=== PATIENT | female | born 1980 | race Caucasian/White ===

== ENCOUNTER 2019-08-10 18:47 | Emergency (ER) | payer OTHER, MEDICAID, SELFPAY ==
[2019-08-10 18:51] VITALS: BP 145/68; PULSE 85; RESP 20; TEMP 36.7; O2SAT 100
[2019-08-10 19:37] LABS: Add Manual Diff / Slide Review NO; Basophils Absolute Auto 100 /uL (0-100); Basophils Percent Auto 1.2 % (0-2); Eosinophils Absolute Auto 200 /uL (0-450); Hematocrit 42.5 % (36-46); Hemoglobin 14.3 g/dL (12.0-16.0); Lymphocytes Absolute Auto 2400 /uL (1100-4500); Lymphocytes Percent Auto 52.5 % (25-40); Mean Corpuscular HGB Conc 33.7 % (30-36); Mean Corpuscular Hemoglobin 32.1 PG (26-34); Mean Corpuscular Volume 95.5 fL (80-100); Monocytes Absolute Auto 400 /uL (0-900); Monocytes Percent Auto 8.2 % (3-14); Neutrophils Absolute Auto 1500 /uL (1500-7000); Neutrophils Percent Auto 34.1 % (50-75); Platelet Count 214 X10^3/uL (150-400); Red Blood Cell Count 4.45 X10^6/uL (4.0-5.2); Red Cell Distribution Width 12.4 % (11.6-14.8); White Blood Cell Count 4.5 X10^3/uL (4.5-11.0)
[2019-08-10 19:41] LABS: Prothrombin Time 11.8 SECONDS (10.1-12.7)
[2019-08-10 19:44] LABS: PTT Partial Thromboplastin Tim 38 SECONDS (26.4-36.2)
[2019-08-10 19:45] LABS: Alanine Aminotransferase 18 IU/L (<35); Albumin 4.3 g/dL (3.5-5.0); Albumin Globulin Ratio 1.4 (1.0-2.8); Alkaline Phosphatase 71 U/L (38-126); Aspartate Aminotransferase 24 IU/L (14-36); BUN Creatinine Ratio 12.5 (6-22); Bilirubin Total 0.3 mg/dL (0.2-1.3); Blood Urea Nitrogen 10 mg/dL (7-17); Calcium 9.2 mg/dL (8.4-10.2); Carbon Dioxide 28 mmol/L (22-32); Chloride 107 mmol/L (98-107); Estimated Glomerular Filt Rate > 60.0 mL/min (>60); Globulin 3.1 g/dL (1.7-4.1); Glucose 122 mg/dL (70-100); HEMOLYSIS < 15 (0-50); Lipase 111 U/L (23-300); Potassium 3.9 mmol/L (3.4-5.1); Sodium 140 mmol/L (137-145); Total Protein 7.4 g/dL (6.3-8.2)
--- NOTE | 2019-08-10 20:42 | ED.GENADULT ---
HPI - General Adult General Chief complaint: Abdominal Pain Stated complaint: hard time breathing, upper abdominal pain Time Seen by Provider: 08/10/19 20:41 Source: patient Mode of arrival: Ambulatory Limitations: no limitations History of Present Illness HPI narrative: 38-year-old female here for evaluation of an episode that she had earlier today. States she had a fairly sudden onset of epigastric abdominal pain. Unsure exactly how long it lasted but it was less than 2 hours. It did cause her to have enough discomfort that she was short of breath. She came in the emergency department for evaluation. The time of my evaluation she was asymptomatic. States she has had symptoms like this in the past. She stated that she was eating some soup at the time of the onset. No bowel changes. No urinary symptoms. Related Data Home Medications Medication Instructions Recorded Confirmed acetaminophen [Tylenol Extra #0 03/11/16 Strength] gabapentin 100 mg PO TID #0 10/13/16 meclizine Unknown #0 10/13/16 tamsulosin [Flomax] Unknown #0 10/13/16 Previous Rx's Medication Instructions Recorded lorazepam [Ativan] 0 PO BIDP PRN #15 tab 01/30/16 oxycodone-acetaminophen [Percocet] 1 tab PO Q6HP PRN #28 tab 04/24/16 fluconazole [Diflucan] 150 mg PO QDAY #1 tab 08/21/16 cyclobenzaprine 10 mg PO TIDP PRN #20 tab 10/06/16 ibuprofen 800 mg PO TIDP PRN #20 tab 10/06/16 oxycodone-acetaminophen [Endocet] 1 tab PO Q6HP PRN #5 tab 10/06/16 ondansetron [Zofran ODT] 4 mg SUBLINGUAL Q6HP PRN #10 odt 10/13/16 sulfamethoxazole-trimethoprim 1 tab PO BID #14 tab 03/11/17 fluconazole 150 mg tablet 150 mg PO ONCE #1 tab 06/28/19 Allergies Allergy/AdvReac Type Severity Reaction Status Date / Time amoxicillin Allergy Intermediate ITCHY RASH Verified 06/28/19 17:09 kiwi [KIWI] Allergy Intermediate mouth Verified 06/28/19 17:09 hurt/swelling citalopram AdvReac Severe PSYCHOSIS Verified 06/28/19 17:09 fluoxetine AdvReac Severe PSYCHOSIS Verified 06/28/19 17:09 Pain contract Allergy Unknown Uncoded 09/30/17 12:19 Review of Systems Constitutional Constitutional: Denies fever(s) Cardiovascular Cardiovascular: Denies chest pain and Reports dyspnea Respiratory Respiratory: Reports dyspnea Gastrointestinal Gastrointestinal: Reports abdominal pain, Denies change in stool character, Denies nausea and Denies vomiting Genitourinary Genitourinary: Denies dysuria and Denies vaginal discharge Musculoskeletal Musculoskeletal: Denies myalgias and Denies arthralgias Integumentary/Breasts Skin/Breast: Denies lesions and Denies rash Neurologic Neurologic: Denies behavioral changes Psychiatric Psychiatric: Denies behavioral changes Hematologic/Lymphatic Hematologic/Lymphatic: Denies easy bleeding and Denies easy bruising Patient History Medical History Abdominal pain (Inactive) Acute exacerbation of chronic low back pain (Inactive) Affective disorder (Inactive) Annular tear of lumbar disc (09/12/15) Arthralgia (Inactive) Bilateral carpal tunnel syndrome (Inactive) Bipolar affective disorder, current episode depressed Chronic low back pain without sciatica (10/08/15) Chronic narcotic use (10/08/15) Diverticulitis (Inactive) Diverticulosis of intestine (09/05/13) Irritable bowel syndrome (09/05/13) Kidney stone (Inactive) Left conjunctivitis (Inactive) Marital conflict involving estrangement (Inactive) Parenting stress (Inactive) Peripheral neuropathy (Inactive) PTSD (post-traumatic stress disorder) (Inactive) Right wrist sprain (Inactive) Sciatica (Inactive) Sprain of right wrist, subsequent encounter (10/08/15) Tobacco use disorder Uncomplicated opioid dependence (01/23/16) Surgical History (Updated 10/20/17 @ 05:58 by Conversion Provider) Status post tubal ligation Family History (Updated 07/27/15 @ 00:00 by Mindy Gregory DO) Mother Osteoarthritis of cervical spine, unspecified spinal osteoarthritis complication status Social History Smoking Status: Current every day smoker Smoking Status: Current every day smoker alcohol intake frequency: 0-2 drinks per day Substance Use Type: marijuana Exam Initial Vital Signs Initial Vital Signs: Vital Signs Temperature 98.1 F 08/10/19 18:51 Pulse Rate 85 08/10/19 18:51 Respiratory Rate 20 08/10/19 18:51 Blood Pressure 145/68 H 08/10/19 18:51 Pulse Oximetry 100 08/10/19 18:51 Const General: cooperative and comfortable Limitations: mental status not altered [facility] Head: normal to inspection and normocephalic Resp Effort & Inspection: normal respiratory effort Auscultation: clear to auscultation bilaterally Cardio Rate: regular rate Rhythm: regular rhythm GI Inspection: non-distended Palpation: soft and No firm Skin Lesions: no lesions Rashes: no rashes Neuro General: alert, awake and oriented x3 Cognition: normal cognition Extrem General: normal to inspection and capillary refill normal Course Orders Ordered: ED Orders 08/10/19 19:16 EKG-12 Lead Stat 08/10/19 19:27 Complete Blood Count AUTO DIFF Stat Comprehensive Metabolic Panel Stat Lipase Stat Partial Thromboplastin Time Stat Prothrombin Time INR Stat Vital Signs Vital signs: Vital Signs - 8 hr 08/10/19 18:51 Temperature 98.1 F Pulse Rate [Left] 85 Respiratory Rate 20 Blood Pressure [Left Arm] 145/68 H Pulse Oximetry 100 Medical Decision Making Lab Data Lab results reviewed: Yes I reviewed the patient's lab results. Result diagrams: 08/10/19 19:27 08/10/19 19:27 Labs: Lab Results 08/10/19 08/10/19 08/10/19 Range/Units 19:27 19:27 19:27 WBC 4.5 (4.5-11.0) X10^3/uL RBC 4.45 (4.0-5.2) X10^6/uL Hgb 14.3 (12.0-16.0) g/dL Hct 42.5 (36-46) % MCV 95.5 (80-100) fL MCH 32.1 (26-34) PG MCHC 33.7 (30-36) % RDW 12.4 (11.6-14.8) % Plt Count 214 (150-400) X10^3/uL Neut % (Auto) 34.1 L (50-75) % Lymph % (Auto) 52.5 H (25-40) % [place]min[place] % (Auto) 8.2 (3-14) % Eos % (Auto) 4.0 (2-4) % Baso % (Auto) 1.2 (0-2) % Neut # (Auto) 1500 (6098-7555) /uL Lymph # (Auto) 2400 (4687-8407) /uL [place]minn # (Auto) 400 (0-900) /uL Eos # (Auto) 200 (0-450) /uL Baso # (Auto) 100 (0-100) /uL PT 11.8 (10.1-12.7) SECONDS INR 1.0 (0.9-1.3) APTT 38 H (26.4-36.2) SECONDS Sodium 140 (137-145) mmol/L Potassium 3.9 (3.4-5.1) mmol/L Chloride 107 (98-107) mmol/L Carbon Dioxide 28 (22-32) mmol/L BUN 10 (7-17) mg/dL Creatinine 0.80 (0.52-1.04) mg/dL Estimated GFR > 60.0 (>60) mL/min BUN/Creatinine Ratio 12.5 (6-22) Glucose 122 H (70-100) mg/dL Calcium 9.2 (8.4-10.2) mg/dL Total Bilirubin 0.3 (0.2-1.3) mg/dL AST 24 (14-36) IU/L ALT 18 (<35) IU/L Alkaline Phosphatase 71 (38-126) U/L Total Protein 7.4 (6.3-8.2) g/dL Albumin 4.3 (3.5-5.0) g/dL Globulin 3.1 (1.7-4.1) g/dL Albumin/Globulin Ratio 1.4 (1.0-2.8) Lipase 111 (23-300) U/L ECG Data Attestation: I personally reviewed and interpreted this ECG as follows: Prior ECG tracings: not available for review Interpretation: Sinus rhythm Ventricular rate is 71 Normal axis Normal QRS Normal QTC No ST T wave changes MDM Narrative Medical decision making narrative: Patient is asymptomatic time my evaluation. Her EKG is unremarkable. Labs are unremarkable. Unsure the exact etiology of her symptoms. Could potentially have been a gallbladder attack given the fact that she was eating at the time. Her LFTs are unremarkable. I do not feel we need any radiologic studies. No indication for antibiotics. No indication for surgical consultation. Patient agrees with all of this. She was given return precautions and follow-up instructions. She expressed understanding and agreement plan. Discharge Plan Departure Patient Disposition: Home Clinical Impression: Abdominal pain Qualifiers: Abdominal location: epigastric Qualified Code(s): R10.13 - Epigastric pain Discharge Date/Time: 08/10/19 21:00 Instructions: DI for Abdominal Pain-Adult Activity Restrictions/Additional Instructions: Continue all of your medications as directed. I do recommend that you contact your primary care provider for follow-up. Return to the emergency department for any new or worsening symptoms Prescriptions: No Action fluconazole 150 mg tablet 150 mg PO ONCE Qty: 1 RF: 0 lorazepam [Ativan] 1 MG tablet 0 PO BIDP PRNQty: 15 RF: 0 acetaminophen [Tylenol Extra Strength] 500 MG tablet Qty: 0 RF: 0 oxycodone-acetaminophen [Percocet] 5 MG/325 MG tablet 1 tab PO Q6HP PRNQty: 28 RF: 0 fluconazole [Diflucan] 150 MG tablet 150 mg PO QDAY Qty: 1 RF: 0 cyclobenzaprine 10 MG tablet 10 mg PO TIDP PRNQty: 20 RF: 0 ibuprofen 800 MG tablet 800 mg PO TIDP PRNQty: 20 RF: 0 oxycodone-acetaminophen [Endocet] 5 MG/325 MG tablet 1 tab PO Q6HP PRNQty: 5 RF: 0 meclizine 12.5 MG tablet Unknown Qty: 0 RF: 0 tamsulosin [Flomax] 0.4 MG capsule,extended release 24hr Unknown Qty: 0 RF: 0 gabapentin 100 MG capsule 100 mg PO TID Qty: 0 RF: 0 ondansetron [Zofran ODT] 4 MG tablet,disintegrating 4 mg Sublingual Q6HP PRNQty: 10 RF: 0 sulfamethoxazole-trimethoprim 800 MG/160 MG tablet 1 tab PO BID Qty: 14 RF: 0 Referrals: Ngozi Diane PA-C [Primary Care Provider] -
== END 2019-08-10 21:00 | disposition home or self-care (01) ==
PROVIDERS: Emergency Provider Emergency Medicine; Family Provider Physician Assistant; PCP Physician Assistant
DX: R10.13 Epigastric pain (principal)
CPT/HCPCS: 36415; 80053; 83690; 85025; 85610; 85730; 93005; 99283; 99284

== ENCOUNTER → 2019-08-16 18:56 | Outpatient (CLI) | payer OTHER, MEDICAID, SELFPAY | PROVIDERS: Family Provider Physician Assistant; PCP Physician Assistant; Visit Provider Nurse Practitioner | DX: J02.9 Acute pharyngitis, unspecified (principal) | CPT/HCPCS: 87070; 87077; 87147 ==

== ENCOUNTER 2019-11-14 14:45 | Emergency (ER) | payer OTHER, MEDICAID, SELFPAY ==
[2019-11-14 15:08] VITALS: BP 163/70; PULSE 96; RESP 17; TEMP 36.5; O2SAT 99
--- NOTE | 2019-11-14 15:12 | ED.MEDCLEAR ---
HPI - Medical Clearance <CHRISTIANO Huddleston - Last Filed: 11/14/19 21:45> General Chief complaint: Medical Clearance Stated complaint: MASS DEPRESSION ANXIETY DETOX Time Seen by Provider: 11/14/19 14:51 History of Present Illness HPI Narrative: 38yo female presents emergency department for medical clearance for detox at [facility], patient reports she called them and they have a bed available for her was told to come to the emergency department for medical clearance. She states she is seeking detox for alcohol use, narcotic, and smoking. She states she has a history of anxiety and has been taking Chantix which has increased her anxiety. Patient also reports the pandemic increased her anxiety lately as well. Patient states her last drink was last night at Midnight, at that time she also did 2gms of cocaine. She states today around 10:00 a.m. she took a half of a 5 mg Percocet. Patient reports some tremors and increased anxiety throughout the day. She denies hallucinations or headaches. Patient denies pain anywhere, she denies chest pain, shortness of breath, abdominal pain, nausea, vomiting, diarrhea, or any other concerns. Related Information Home Medications Medication Instructions Recorded Confirmed acetaminophen [Tylenol Extra #0 03/11/16 08/16/19 Strength] acyclovir PO 08/16/19 08/16/19 albuterol sulfate INHALATION PRN 08/16/19 08/16/19 Previous Rx's Medication Instructions Recorded ibuprofen 800 mg PO TIDP PRN #20 tab 10/06/16 lorazepam [Ativan] 2 mg PO BID PRN #9 tab 11/14/19 Allergies Allergy/AdvReac Type Severity Reaction Status Date / Time amoxicillin Allergy Intermediate ITCHY RASH Verified 11/14/19 15:20 kiwi [KIWI] Allergy Intermediate mouth Verified 11/14/19 15:20 hurt/swelling citalopram AdvReac Severe PSYCHOSIS Verified 11/14/19 15:20 fluoxetine AdvReac Severe PSYCHOSIS Verified 11/14/19 15:20 Pain contract Allergy Unknown Uncoded 11/14/19 15:20 Review of Systems <CHRISTIANO Huddleston - Last Filed: 11/14/19 21:45> Review of Systems Narrative: REVIEW OF SYSTEMS: GENERAL: Denies fever or chills. HENT: No head trauma, hearing loss or sore throat. EYES: No vision changes. CARDIOVASCULAR: No chest pain or syncope. RESPIRATORY: No shortness of breath or cough. GASTROINTESTINAL: No nausea, vomiting, diarrhea, or constipation. GENITOURINARY: No flank pain or dysuria. MUSCULOSKELETAL: No pain, weakness, or deformities. INTEGUMENTARY: No rash, lesions, or pruritus. NEURO: No no numbness, tingling, or hallucinations. PSYCH: Reports increased anxiety, see HPI. Patient History <CHRISTIANO Huddleston - Last Filed: 11/14/19 21:45> Medical History Abdominal pain (Inactive) Acute exacerbation of chronic low back pain (Inactive) Affective disorder (Inactive) Annular tear of lumbar disc (09/12/15) Arthralgia (Inactive) Bilateral carpal tunnel syndrome (Inactive) Bipolar affective disorder, current episode depressed Chronic low back pain without sciatica (10/08/15) Chronic narcotic use (10/08/15) Diverticulitis (Inactive) Diverticulosis of intestine (09/05/13) Irritable bowel syndrome (09/05/13) Kidney stone (Inactive) Left conjunctivitis (Inactive) Marital conflict involving estrangement (Inactive) Parenting stress (Inactive) Peripheral neuropathy (Inactive) PTSD (post-traumatic stress disorder) (Inactive) Right wrist sprain (Inactive) Sciatica (Inactive) Sprain of right wrist, subsequent encounter (10/08/15) Tobacco use disorder Uncomplicated opioid dependence (01/23/16) Surgical History Status post tubal ligation Family History Mother Osteoarthritis of cervical spine, unspecified spinal osteoarthritis complication status Social History Smoking Status: Current every day smoker Smoking Status: Current every day smoker alcohol intake frequency: 0-2 drinks per day Substance Use Type: marijuana Exam <CHRISTIANO Huddleston - Last Filed: 11/14/19 21:45> Initial Vital Signs Initial Vital Signs: Vital Signs Temperature 97.7 F 11/14/19 15:08 Pulse Rate 96 H 11/14/19 15:08 Respiratory Rate 17 11/14/19 15:08 Blood Pressure 163/70 H 11/14/19 15:08 Pulse Oximetry 99 11/14/19 15:08 PHYSICAL EXAMINATION: GENERAL: Alert and cooperative.. Answers questions promptly and appropriately. Vital signs noted. HENT: Normocephalic, atraumatic. Ear canals patent. Oral mucosa is pink and moist. EYES: Conjunctiva pink, sclera white, no periorbital swelling. CHEST: Normal to inspection and without deformities. CARDIOVASCULAR: S1 and S2 sounds normal. Regular rate and rhythm, no murmurs, clicks, or bruits. No pedal edema. RESPIRATORY: Normal respiratory rate, trachea midline, airway patent. No stridor, nasal flaring or accessory muscle use. Lungs are clear in all biggs without wheeze, rhonchi, or crackles. GASTROINTESTINAL: Bowel sounds normoactive. Abdomen is soft and non-tender. No organomegaly. MUSCULOSKELETAL: Normal gait and coordination. Equal tone and mass bilaterally. EXTREMITIES: CMS intact. Moves all extremities. SKIN: Warm, dry, soft, appropriate color for ethnicity. No lesions, rashes, or wounds. NEURO: Alert and Oriented X 3. Good coordination. No ataxia, or sensory deficits, or cognitive issues. Initial mild to moderate tremors, he has resolved after administration of Ativan. PSYCH: Appropriate affect and mood. <Zacarias Agosto DO - Last Filed: 11/15/19 18:29> Initial Vital Signs Initial Vital Signs: Vital Signs Temperature 97.7 F 11/14/19 15:08 Pulse Rate 96 H 11/14/19 15:08 Respiratory Rate 17 11/14/19 15:08 Blood Pressure 163/70 H 11/14/19 15:08 Pulse Oximetry 99 11/14/19 15:08 [facility] - Medical Clearance <CHRISTIANO Huddleston - Last Filed: 11/14/19 21:45> Medical Records Attestation: I reviewed the patient's medical records. Lab Data Attestation: I reviewed the patient's lab results. Result diagrams: 11/14/19 15:52 11/14/19 15:52 Labs: Lab Results 11/14/19 11/14/19 11/14/19 Range/Units 15:52 15:52 15:52 WBC (4.5-11.0) X10^3/uL RBC (4.0-5.2) X10^6/uL Hgb (12.0-16.0) g/dL Hct (36-46) % MCV (80-100) fL MCH (26-34) PG MCHC (30-36) % RDW (11.6-14.8) % Plt Count (150-400) X10^3/uL Neut % (Auto) (50-75) % Lymph % (Auto) (25-40) % Stanly % (Auto) (3-14) % Eos % (Auto) (2-4) % Baso % (Auto) (0-2) % Neut # (Auto) (2065-6297) /uL Lymph # (Auto) (4800-9099) /uL Stanly # (Auto) (0-900) /uL Eos # (Auto) (0-450) /uL Baso # (Auto) (0-100) /uL Sodium 141 (137-145) mmol/L Potassium 4.1 (3.4-5.1) mmol/L Chloride 106 (98-107) mmol/L Carbon Dioxide 24 (22-32) mmol/L BUN 12 (7-17) mg/dL Creatinine 1.01 (0.52-1.04) mg/dL Estimated GFR > 60.0 (>60) mL/min BUN/Creatinine Ratio 11.9 (6-22) Glucose 80 (70-100) mg/dL Calcium 9.8 (8.4-10.2) mg/dL Total Bilirubin 0.5 (0.2-1.3) mg/dL AST 25 (14-36) IU/L ALT 17 (<35) IU/L Alkaline Phosphatase 69 (38-126) U/L Total Protein 8.0 (6.3-8.2) g/dL Albumin 4.6 (3.5-5.0) g/dL Globulin 3.4 (1.7-4.1) g/dL Albumin/Globulin Ratio 1.4 (1.0-2.8) TSH 1.45 (0.47-4.68) uIU/mL U Opiates 300ng/mL cut (Negative) Ur Oxycodone Screen (Negative) Urine Methadone Screen (Negative) Ur Barbiturates Screen (Negative) U Tricyclic Antidepress (Negative) Ur Phencyclidine Scrn (Negative) Ur Amphetamines Screen (Negative) U Methamphetamines Scrn (Negative) Ur MDMA Scrn (Ecstasy) (Negative) U Benzodiazepines Scrn (Negative) Urine Cocaine Screen (Negative) U Marijuana (THC) Screen (Negative) Ethyl Alcohol < 10 ( - 10) mg/dL 11/14/19 11/14/19 Range/Units 15:52 16:16 WBC 8.2 (4.5-11.0) X10^3/uL RBC 4.78 (4.0-5.2) X10^6/uL Hgb 16.0 (12.0-16.0) g/dL Hct 45.8 (36-46) % MCV 95.8 (80-100) fL MCH 33.5 (26-34) PG MCHC 34.9 (30-36) % RDW 13.9 (11.6-14.8) % Plt Count 235 (150-400) X10^3/uL Neut % (Auto) 60.5 (50-75) % Lymph % (Auto) 28.3 (25-40) % Stanly % (Auto) 8.5 (3-14) % Eos % (Auto) 1.7 L (2-4) % Baso % (Auto) 1.0 (0-2) % Neut # (Auto) 5000 (9904-5288) /uL Lymph # (Auto) 2300 (3013-4326) /uL Stanly # (Auto) 700 (0-900) /uL Eos # (Auto) 100 (0-450) /uL Baso # (Auto) 100 (0-100) /uL Sodium (137-145) mmol/L Potassium (3.4-5.1) mmol/L Chloride (98-107) mmol/L Carbon Dioxide (22-32) mmol/L BUN (7-17) mg/dL Creatinine (0.52-1.04) mg/dL Estimated GFR (>60) mL/min BUN/Creatinine Ratio (6-22) Glucose (70-100) mg/dL Calcium (8.4-10.2) mg/dL Total Bilirubin (0.2-1.3) mg/dL AST (14-36) IU/L ALT (<35) IU/L Alkaline Phosphatase (38-126) U/L Total Protein (6.3-8.2) g/dL Albumin (3.5-5.0) g/dL Globulin (1.7-4.1) g/dL Albumin/Globulin Ratio (1.0-2.8) TSH (0.47-4.68) uIU/mL U Opiates 300ng/mL cut Negative (Negative) Ur Oxycodone Screen Positive H (Negative) Urine Methadone Screen Negative (Negative) Ur Barbiturates Screen Negative (Negative) U Tricyclic Antidepress Negative (Negative) Ur Phencyclidine Scrn Negative (Negative) Ur Amphetamines Screen Negative (Negative) U Methamphetamines Scrn Negative (Negative) Ur MDMA Scrn (Ecstasy) Negative (Negative) U Benzodiazepines Scrn Negative (Negative) Urine Cocaine Screen Positive H (Negative) U Marijuana (THC) Screen Negative (Negative) Ethyl Alcohol ( - 10) mg/dL Point of Care Testing Test Results Negative Urine Dip Bedside Urine Glucose Negative Bedside Urine Bilirubin - Negative Bedside Urine Ketone - Negative Urine Specific [place] 1.025 Bedside Urine Occult Blood - Negative Bedside Urine pH 6.0 Bedside Urine Protein - Negative Bedside Urine Urobilinogen - Negative Bedside Urine Nitrite - Negative Bedside Urine Leukocytes - Negative Esterase MDM Narrative Medical decision making narrative: 38-year-old female with a history of alcohol and drug abuse, presenting for medical clearance to [facility]. Course as follows: 1530: CIWA score of 9, patient given 2 mg of Ativan. 1548:Nursing talked with [facility] and requested patient be sent with an RX of 9-2mg ativan pills for treatment during the night and that lab and urine studies be completed prior to DC. 1638: Patient re-evaluated, states she is feeling less anxious. Requesting a nicotine patch and food. CIWA score of 3. 1750: Patient Cab arrived, [facility] reported pharmacy was closed, patient was given two 2mg PO ativan pills for withdrawals tonight. Patient without signs of infection, electrolyte abnormality, severe withdrawal, or severe intoxication. Patient was medically cleared for scheduled detox beds. Medication was given for request of [facility]. Return precautions given for new or worsening symptoms. <Zacarias Agosto, DO - Last Filed: 11/15/19 18:29> Lab Data Labs: Lab Results 11/14/19 11/14/19 11/14/19 Range/Units 15:52 15:52 15:52 WBC (4.5-11.0) X10^3/uL RBC (4.0-5.2) X10^6/uL Hgb (12.0-16.0) g/dL Hct (36-46) % MCV (80-100) fL MCH (26-34) PG MCHC (30-36) % RDW (11.6-14.8) % Plt Count (150-400) X10^3/uL Neut % (Auto) (50-75) % Lymph % (Auto) (25-40) % Stanly % (Auto) (3-14) % Eos % (Auto) (2-4) % Baso % (Auto) (0-2) % Neut # (Auto) (0140-3897) /uL Lymph # (Auto) (6540-6019) /uL Stanly # (Auto) (0-900) /uL Eos # (Auto) (0-450) /uL Baso # (Auto) (0-100) /uL Sodium 141 (137-145) mmol/L Potassium 4.1 (3.4-5.1) mmol/L Chloride 106 (98-107) mmol/L Carbon Dioxide 24 (22-32) mmol/L BUN 12 (7-17) mg/dL Creatinine 1.01 (0.52-1.04) mg/dL Estimated GFR > 60.0 (>60) mL/min BUN/Creatinine Ratio 11.9 (6-22) Glucose 80 (70-100) mg/dL Calcium 9.8 (8.4-10.2) mg/dL Total Bilirubin 0.5 (0.2-1.3) mg/dL AST 25 (14-36) IU/L ALT 17 (<35) IU/L Alkaline Phosphatase 69 (38-126) U/L Total Protein 8.0 (6.3-8.2) g/dL Albumin 4.6 (3.5-5.0) g/dL Globulin 3.4 (1.7-4.1) g/dL Albumin/Globulin Ratio 1.4 (1.0-2.8) TSH 1.45 (0.47-4.68) uIU/mL U Opiates 300ng/mL cut (Negative) Ur Oxycodone Screen (Negative) Urine Methadone Screen (Negative) Ur Barbiturates Screen (Negative) U Tricyclic Antidepress (Negative) Ur Phencyclidine Scrn (Negative) Ur Amphetamines Screen (Negative) U Methamphetamines Scrn (Negative) Ur MDMA Scrn (Ecstasy) (Negative) U Benzodiazepines Scrn (Negative) Urine Cocaine Screen (Negative) U Marijuana (THC) Screen (Negative) Ethyl Alcohol < 10 ( - 10) mg/dL 11/14/19 11/14/19 Range/Units 15:52 16:16 WBC 8.2 (4.5-11.0) X10^3/uL RBC 4.78 (4.0-5.2) X10^6/uL Hgb 16.0 (12.0-16.0) g/dL Hct 45.8 (36-46) % MCV 95.8 (80-100) fL MCH 33.5 (26-34) PG MCHC 34.9 (30-36) % RDW 13.9 (11.6-14.8) % Plt Count 235 (150-400) X10^3/uL Neut % (Auto) 60.5 (50-75) % Lymph % (Auto) 28.3 (25-40) % Stanly % (Auto) 8.5 (3-14) % Eos % (Auto) 1.7 L (2-4) % Baso % (Auto) 1.0 (0-2) % Neut # (Auto) 5000 (5365-9978) /uL Lymph # (Auto) 2300 (2321-3170) /uL Stanly # (Auto) 700 (0-900) /uL Eos # (Auto) 100 (0-450) /uL Baso # (Auto) 100 (0-100) /uL Sodium (137-145) mmol/L Potassium (3.4-5.1) mmol/L Chloride (98-107) mmol/L Carbon Dioxide (22-32) mmol/L BUN (7-17) mg/dL Creatinine (0.52-1.04) mg/dL Estimated GFR (>60) mL/min BUN/Creatinine Ratio (6-22) Glucose (70-100) mg/dL Calcium (8.4-10.2) mg/dL Total Bilirubin (0.2-1.3) mg/dL AST (14-36) IU/L ALT (<35) IU/L Alkaline Phosphatase (38-126) U/L Total Protein (6.3-8.2) g/dL Albumin (3.5-5.0) g/dL Globulin (1.7-4.1) g/dL Albumin/Globulin Ratio (1.0-2.8) TSH (0.47-4.68) uIU/mL U Opiates 300ng/mL cut Negative (Negative) Ur Oxycodone Screen Positive H (Negative) Urine Methadone Screen Negative (Negative) Ur Barbiturates Screen Negative (Negative) U Tricyclic Antidepress Negative (Negative) Ur Phencyclidine Scrn Negative (Negative) Ur Amphetamines Screen Negative (Negative) U Methamphetamines Scrn Negative (Negative) Ur MDMA Scrn (Ecstasy) Negative (Negative) U Benzodiazepines Scrn Negative (Negative) Urine Cocaine Screen Positive H (Negative) U Marijuana (THC) Screen Negative (Negative) Ethyl Alcohol ( - 10) mg/dL Point of Care Testing Test Results Negative Urine Dip Bedside Urine Glucose Negative Bedside Urine Bilirubin - Negative Bedside Urine Ketone - Negative Urine Specific [place] 1.025 Bedside Urine Occult Blood - Negative Bedside Urine pH 6.0 Bedside Urine Protein - Negative Bedside Urine Urobilinogen - Negative Bedside Urine Nitrite - Negative Bedside Urine Leukocytes - Negative Esterase Discharge Plan Departure Patient Disposition: Home Clinical Impression: Alcohol use disorder, Cocaine use Discharge Date/Time: 11/14/19 17:36 Activity Restrictions/Additional Instructions: Thank you for entrusting me with your care today. I commend you for taking the steps towards detox. As discussed, you are medically clear. We have spoken to [facility] and they are expecting you, please go directly there. Return to the emergency department for any new or worsening symptoms such as chest pain, uncontrollable vomiting, syncope, or any other concerns. Prescriptions: New lorazepam [Ativan] 2 mg tablet 2 mg PO BID PRN (Reason: The alcohol withdrawal) Qty: 9 RF: 0 No Action acyclovir PO RF: 0 albuterol sulfate inhalation PRNRF: 0 acetaminophen [Tylenol Extra Strength] 500 MG tablet Qty: 0 RF: 0 ibuprofen 800 MG tablet 800 mg PO TIDP PRNQty: 20 RF: 0 Referrals: Ngozi Diane PA-C [Primary Care Provider] - <Zacarias Agosto DO - Last Filed: 11/15/19 18:29> Cosign ED Attending Cosrudyature Attestation: I was immediately available in the department for consultation. This documentation has been reviewed and I agree with assessment and plan. Supervised by Zacairas Agosto DO
--- NOTE | 2019-11-14 15:29 | PC.NURSE ---
At this time I spoke with Vonnie at [facility] regarding patient being admitted for detox there. They report they did speak with her this morning and they do have a bed for her after medical clearance including blood alcohol level, urine drug screen, and urine test. They also request ativan for the patient to detox from alcohol.
[2019-11-14] MEDS: LORazepam 0.5 MG TABLET 2 MG PO (15:35)
--- NOTE | 2019-11-14 15:48 | PC.NURSE ---
I spoke with Sandra white and they requested a prescription for 2mg Ativan x9 be sent to [facility] in [place]. I informed Travis ALVARADO.
[2019-11-14 16:08] LABS: Add Manual Diff / Slide Review NO; Basophils Absolute Auto 100 /uL (0-100); Eosinophils Absolute Auto 100 /uL (0-450); Eosinophils Percent Auto 1.7 % (2-4); Hematocrit 45.8 % (36-46); Lymphocytes Absolute Auto 2300 /uL (1100-4500); Lymphocytes Percent Auto 28.3 % (25-40); Mean Corpuscular HGB Conc 34.9 % (30-36); Mean Corpuscular Hemoglobin 33.5 PG (26-34); Mean Corpuscular Volume 95.8 fL (80-100); Monocytes Absolute Auto 700 /uL (0-900); Monocytes Percent Auto 8.5 % (3-14); Neutrophils Absolute Auto 5000 /uL (1500-7000); Neutrophils Percent Auto 60.5 % (50-75); Platelet Count 235 X10^3/uL (150-400); Red Blood Cell Count 4.78 X10^6/uL (4.0-5.2); Red Cell Distribution Width 13.9 % (11.6-14.8); White Blood Cell Count 8.2 X10^3/uL (4.5-11.0)
[2019-11-14 16:18] LABS: Alanine Aminotransferase 17 IU/L (<35); Albumin 4.6 g/dL (3.5-5.0); Albumin Globulin Ratio 1.4 (1.0-2.8); Alkaline Phosphatase 69 U/L (38-126); Aspartate Aminotransferase 25 IU/L (14-36); BUN Creatinine Ratio 11.9 (6-22); Bilirubin Total 0.5 mg/dL (0.2-1.3); Blood Urea Nitrogen 12 mg/dL (7-17); Calcium 9.8 mg/dL (8.4-10.2); Carbon Dioxide 24 mmol/L (22-32); Chloride 106 mmol/L (98-107); Estimated Glomerular Filt Rate > 60.0 mL/min (>60); Ethanol (ETOH) < 10 mg/dL; Globulin 3.4 g/dL (1.7-4.1); Glucose 80 mg/dL (70-100); HEMOLYSIS < 15 (0-50); Potassium 4.1 mmol/L (3.4-5.1); Sodium 141 mmol/L (137-145)
[2019-11-14 16:33] LABS: UR Morphine/Opiate cutoff 300 Negative (Negative); Ur Creatinine Normal (Normal); Ur Specific Gravity Normal (Normal); Urine Amphetamines Negative (Negative); Urine Barbiturates Negative (Negative); Urine Benzodiazepines Negative (Negative); Urine Cocaine Positive (Negative); Urine MDMA Negative (Negative); Urine Methadone Negative (Negative); Urine Methamphetamines Negative (Negative); Urine Oxycodone Positive (Negative); Urine Phencyclidine Negative (Negative); Urine Tetrahydrocannabinol Negative (Negative); Urine Tricyclic Antidepressant Negative (Negative); Urine pH Normal (Normal)
[2019-11-14] MEDS: NICOTINE 21 MG PATCH TOP (16:42)
[2019-11-14 16:53] LABS: Thyroid Stimulating Hormone 1.45 uIU/mL (0.47-4.68)
[2019-11-14 17:01] VITALS: BP 142/90; PULSE 78; RESP 17; O2SAT 98
--- NOTE | 2019-11-14 17:02 | PC.NURSE ---
I faxed paper work to [facility] and called them to inform them that the patient is medically clear and will be headed their way. They verbalized understanding. Nicole sharpe was called by Samantha CUTLER and eta is 20 minutes.
[2019-11-14] MEDS: LORazepam 0.5 MG TABLET 4 MG PO (17:24)
--- NOTE | 2019-11-14 17:34 | PC.NURSE ---
[facility] reports they are unable to obtain ativan prescription tonight because pharmacy is closed. They request we send prepak of ativan with patient. 4mg Ativan sent with patient in sealed envelope care of Merts p d driver. Ok per Edna Howard RN and Travis ALVARADO. I spoke with [facility] about this and they report they will get the envelope from the p d driver when they arrive.
== END 2019-11-14 17:36 | disposition home or self-care (01) ==
PROVIDERS: Emergency Provider Nurse Practitioner; Family Provider Physician Assistant; PCP Physician Assistant
DX: Z00.8 Encounter for other general examination (principal); F10.20 Alcohol dependence, uncomplicated; F14.10 Cocaine abuse, uncomplicated; F41.9 Anxiety disorder, unspecified
CPT/HCPCS: 36415; 80053; 80305; 80320; 81003; 81025; 84443; 85025; 99283

== ENCOUNTER 2020-04-26 01:00 | Emergency (ER) | payer OTHER, MEDICAID, SELFPAY ==
[2020-04-26 01:03] VITALS: BP 125/71; PULSE 90; RESP 18; TEMP 36.8; O2SAT 99; BMI 25.0
[2020-04-26 01:35] VITALS: PULSE 81; O2SAT 100
[2020-04-26 02:00] VITALS: BP 105/58; PULSE 71; O2SAT 99
[2020-04-26 02:30] VITALS: BP 103/65; PULSE 68; O2SAT 98
[2020-04-26 03:00] VITALS: BP 105/60; PULSE 65; O2SAT 99
--- NOTE | 2020-04-26 03:16 | ED_ITS ---
HPI - Abdominal Pain General Chief Complaint: Abdominal Pain Stated Complaint: pain in abd had procedure today Time Seen by Provider: 04/26/20 02:56 Source: patient Mode of arrival: Ambulatory Limitations: no limitations History of Present Illness HPI narrative: The patient has an ongoing evaluation for abdominal pain. She has been evaluated for gallbladder disease, including HIDA scan in recent weeks. She also underwent a recent abdominal CT. Yesterday she had endoscopy and colonoscopy. She came in complaining of upper abdominal pain, the pain has resolved prior to me seeing her. She has no associated nausea vomiting. She is concerned about no BMs, very little output. She has passed a little gas. She has no distension or fever. She has no chest pain or dyspnea. Related Data Home Medications Medication Instructions Recorded Confirmed acetaminophen [Tylenol Extra #0 03/11/16 08/16/19 Strength] acyclovir PO 08/16/19 08/16/19 albuterol sulfate INHALATION PRN 08/16/19 08/16/19 Previous Rx's Medication Instructions Recorded ibuprofen 800 mg PO TIDP PRN #20 tab 10/06/16 lorazepam [Ativan] 2 mg PO BID PRN #9 tab 11/14/19 metoclopramide HCl [Reglan] 10 mg PO Q8HR 10 Days #30 tab 04/26/20 Allergies Allergy/AdvReac Type Severity Reaction Status Date / Time amoxicillin Allergy Intermediate ITCHY RASH Verified 11/14/19 15:20 kiwi [KIWI] Allergy Intermediate mouth Verified 11/14/19 15:20 hurt/swelling citalopram AdvReac Severe PSYCHOSIS Verified 11/14/19 15:20 fluoxetine AdvReac Severe PSYCHOSIS Verified 11/14/19 15:20 Pain contract Allergy Unknown Uncoded 11/14/19 15:20 Review of Systems Constitutional Constitutional: Denies chills, Denies fever(s), Denies headache(s) and Denies lethargy Eyes Eyes: Denies change in vision ENT Ears, Nose, Mouth, and Throat: Denies vertigo, Denies dizziness, Denies otalgia, Denies facial pain, Denies headache(s) and Denies mouth pain Cardiovascular Cardiovascular: Denies chest pain, Denies irregular heart rhythm, Denies lightheadedness, Denies palpitations and Denies dyspnea Respiratory Respiratory: Denies cough, Denies dyspnea and Denies wheezing Gastrointestinal Gastrointestinal: Reports as per HPI Genitourinary Genitourinary: Denies dysuria Genitourinary: Denies dysuria Musculoskeletal Musculoskeletal: Denies back pain Neurologic Neurologic: Denies vertigo, Denies dizziness and Denies headache(s) Endocrine Endocrine: Denies palpitations Allergic/Immunologic Allergic/Immunologic: Denies wheezing Patient History Medical History Abdominal pain (Inactive) Acute exacerbation of chronic low back pain (Inactive) Affective disorder (Inactive) Annular tear of lumbar disc (09/12/15) Arthralgia (Inactive) Bilateral carpal tunnel syndrome (Inactive) Bipolar affective disorder, current episode depressed Chronic low back pain without sciatica (10/08/15) Chronic narcotic use (10/08/15) Diverticulitis (Inactive) Diverticulosis of intestine (09/05/13) Irritable bowel syndrome (09/05/13) Kidney stone (Inactive) Left conjunctivitis (Inactive) Marital conflict involving estrangement (Inactive) Parenting stress (Inactive) Peripheral neuropathy (Inactive) PTSD (post-traumatic stress disorder) (Inactive) Right wrist sprain (Inactive) Sciatica (Inactive) Sprain of right wrist, subsequent encounter (10/08/15) Tobacco use disorder Uncomplicated opioid dependence (01/23/16) Surgical History Status post tubal ligation Family History Mother Osteoarthritis of cervical spine, unspecified spinal osteoarthritis complication status Social History Smoking Status: Current every day smoker Smoking Status: Current every day smoker tobacco type: cigarettes alcohol intake frequency: 0-2 drinks per day Substance Use Type: marijuana Exam Initial Vital Signs Initial Vital Signs: Vital Signs Temperature 98.3 F 04/26/20 01:03 Pulse Rate 90 04/26/20 01:03 Respiratory Rate 18 04/26/20 01:03 Blood Pressure 125/71 04/26/20 01:03 Pulse Oximetry 99 04/26/20 01:03 Const General: cooperative and well developed Nutritional Appearance: well nourished HENMI Head: normocephalic and atraumatic Resp Effort & Inspection: normal respiratory effort, able to speak in complete s entences, no respiratory distress and no use of accessory muscles Auscultation: not clear to auscultation bilaterally and lung sounds not diminished Cardio Rate: regular rate Rhythm: regular rhythm Heart Sounds: S1 normal, S2 normal, no click, no gallops, no murmurs and no rubs Pulses: normal peripheral pulses GI Inspection: non-distended Palpation: soft, no hepatosplenomegaly, No guarding, No pulsatile mass and No tender Auscultation: normal bowel sounds Back/Spine/Pelvis Back: No CVA tenderness Course Course Course Narrative: The patient has no ongoing dyspepsia, she is eating and drinking well. She does not want workup, or x-rays. I will give her Reglan. She can resume regular diet, recheck with her doctor in the next 2-3 days. Orders Ordered: Metoclopramide HCl (Reglan) 10 mg PO Q6HR PRN PRN Reason: Nausea And Vomiting Vital Signs Vital signs: Vital Signs - 8 hr 04/26/20 01:03 04/26/20 01:35 04/26/20 02:00 Temperature 98.3 F Pulse Rate 90 81 71 Respiratory Rate 18 Blood Pressure 125/71 105/58 L Pulse Oximetry 99 100 99 04/26/20 02:30 Temperature Pulse Rate 68 Respiratory Rate Blood Pressure 103/65 Pulse Oximetry 98 Discharge Plan Departure Patient Disposition: Home Clinical Impression: Dyspepsia Instructions: DI for Abdominal Pain-Adult Activity Restrictions/Additional Instructions: Reglan 3 times daily as needed for abdominal upset. Be sure you are drinking plenty of fluids. Follow-up with your doctor, return here if necessary. Prescriptions: New metoclopramide HCl [Reglan] 10 mg tablet 10 mg PO Q8HR 10 Days Qty: 30 RF: 0 No Action acyclovir PO RF: 0 albuterol sulfate inhalation PRNRF: 0 acetaminophen [Tylenol Extra Strength] 500 MG tablet Qty: 0 RF: 0 ibuprofen 800 MG tablet 800 mg PO TIDP PRNQty: 20 RF: 0 lorazepam [Ativan] 2 mg tablet 2 mg PO BID PRN (Reason: The alcohol withdrawal) Qty: 9 RF: 0 Referrals: Ngozi Diane PA-C [Primary Care Provider] -
[2020-04-26] MEDS: METOCLOPRAMIDE HCL 10 MG TABLET PO (03:23)
== END 2020-04-26 03:36 | disposition home or self-care (01) ==
PROVIDERS: Emergency Provider Emergency Medicine; Family Provider Physician Assistant; PCP Physician Assistant
DX: R10.13 Epigastric pain (principal)
CPT/HCPCS: 99283

== ENCOUNTER 2020-09-14 19:19 | Emergency (ER) | payer OTHER, MEDICAID, SELFPAY ==
[2020-09-14 19:20] VITALS: BP 123/78; PULSE 104; RESP 18; TEMP 36.8; O2SAT 100; BMI 24.7
[2020-09-14] MEDS: diphenhydrAMINE 25 MG TABLET 50 MG PO (21:41)
[2020-09-14 22:00] LABS: Bacteria Urine None Seen; WBC Urine None Seen (0-5/HPF)
[2020-09-14 22:03] LABS: Appearance Urine UA CLEAR; Bilirubin Urine UA NEGATIVE (NEGATIVE); Color Urine UA YELLOW; Glucose Urine UA NEGATIVE (Negative); Ketones Urine UA NEGATIVE (NEGATIVE); Leukocyte Esterase Urine UA NEGATIVE (NEGATIVE); Nitrite Urine UA NEGATIVE (Negative); Occult Blood Urine UA TRACE-INTACT (Negative); Protein Urine UA NEGATIVE (Negative); Urobilinogen Urine UA 0.2 E.U./dL (0.2)
[2020-09-14 22:06] LABS: Pregnancy Test Urine Negative (Negative)
[2020-09-14 22:09] LABS: RBC Urine 1-5/HPF (0-5/HPF); Squamous Epithelial Cell Urine 5-10 /HPF (0-5/HPF)
[2020-09-14 22:10] LABS: Culture Indicated Urine Cult Not Indicated
[2020-09-14 22:13] LABS: UR Morphine/Opiate cutoff 300 Negative (Negative); Ur Creatinine Normal (Normal); Ur Specific Gravity Normal (Normal); Urine Amphetamines Negative (Negative); Urine Barbiturates Negative (Negative); Urine Benzodiazepines Negative (Negative); Urine Cocaine Negative (Negative); Urine MDMA Negative (Negative); Urine Methadone Negative (Negative); Urine Methamphetamines Negative (Negative); Urine Oxycodone Negative (Negative); Urine Phencyclidine Negative (Negative); Urine Tetrahydrocannabinol Positive (Negative); Urine Tricyclic Antidepressant Negative (Negative); Urine pH Normal (Normal)
[2020-09-14 22:15] LABS: Add Manual Diff / Slide Review NO; Basophils Absolute Auto 100 /uL (0-100); Basophils Percent Auto 1.5 % (0-2); Eosinophils Absolute Auto 100 /uL (0-450); Eosinophils Percent Auto 1.2 % (2-4); Hematocrit 40.6 % (36-46); Hemoglobin 13.9 g/dL (12.0-16.0); Lymphocytes Absolute Auto 2200 /uL (1100-4500); Lymphocytes Percent Auto 30.1 % (25-40); Mean Corpuscular HGB Conc 34.4 % (30-36); Mean Corpuscular Hemoglobin 31.7 PG (26-34); Mean Corpuscular Volume 92.2 fL (80-100); Monocytes Absolute Auto 400 /uL (0-900); Monocytes Percent Auto 5.9 % (3-14); Neutrophils Absolute Auto 4500 /uL (1500-7000); Neutrophils Percent Auto 61.3 % (50-75); Platelet Count 261 X10^3/uL (150-400); Red Cell Distribution Width 12.9 % (11.6-14.8); White Blood Cell Count 7.3 X10^3/uL (4.5-11.0)
--- NOTE | 2020-09-14 22:21 | ED.PSYCH ---
HPI - Psych General Chief Complaint: Psychiatric Symptoms Stated Complaint: Panic attack Time Seen by Provider: 09/14/20 21:59 Source: patient Mode of arrival: EMS Limitations: no limitations History of Present Illness HPI Narrative: Patient is a 39-year-old female who comes to the emergency department by EMS for evaluation of a panic attack. Patient states that she does have a history of anxiety and depression. She also has a history of insomnia. She was also recently diagnosed with ADHD. She does not see a mental health provider. Her prior diagnoses were made and are maintained by her primary doctor. She was recently started on methylphenidate because the ADHD. She states that for a couple days after taking this she felt very well for several days but she was continuing to have problems sleeping. She was then started on Seroquel at night to help her sleep. States that after starting this medicine things seem to get worse. She has been having quite a bit of anxiety. No specific thoughts of hurting herself but she does state that if the anxiety does not come under control she states that ?I cannot live like this ?. She did receive some Benadryl in triage for nursing concerns of potential EP symptoms given the recent start of her medications. By the time I evaluated her she reported that she had improved with regard to the anxiety. Related Data Home Medications Medication Instructions Recorded Confirmed ibuprofen 800 mg PO TIDP PRN 09/14/20 09/14/20 methylphenidate HCl 10 mg PO DAILY 09/14/20 09/14/20 methylphenidate HCl 20 mg PO QAM 09/14/20 09/14/20 metoclopramide HCl 10 mg PO AC PRN 09/14/20 09/14/20 quetiapine 50 mg PO QPM 09/14/20 09/14/20 trazodone 100 mg PO DAILY PRN 09/14/20 09/14/20 Allergies Allergy/AdvReac Type Severity Reaction Status Date / Time amoxicillin Allergy Intermediate ITCHY RASH Verified 09/14/20 19:20 kiwi [KIWI] Allergy Intermediate mouth Verified 09/14/20 19:20 hurt/swelling citalopram AdvReac Severe PSYCHOSIS Verified 09/14/20 19:20 fluoxetine AdvReac Severe PSYCHOSIS Verified 09/14/20 19:20 Pain contract Allergy Unknown Uncoded 09/14/20 19:20 Review of Systems Constitutional Constitutional: Denies fever(s) and Denies headache(s) ENT Ears, Nose, Mouth, and Throat: Denies vertigo, Denies dizziness and Denies headache(s) Cardiovascular Cardiovascular: Denies chest pain and Denies dyspnea Respiratory Respiratory: Denies dyspnea Gastrointestinal Gastrointestinal: Denies abdominal pain, Denies nausea and Denies vomiting Genitourinary Genitourinary: Denies dysuria Genitourinary: Denies dysuria Musculoskeletal Musculoskeletal: Denies myalgias Integumentary/Breasts Skin/Breast: Denies rash Neurologic Neurologic: Reports behavioral changes, Denies confusion, Denies vertigo, Denies dizziness and Denies headache(s) Psychiatric Psychiatric: Reports anxiety, Reports behavioral changes, Denies confusion, Reports depression and Reports panic attacks Hematologic/Lymphatic On Anticoagulants: No Patient History Medical History (Updated 09/15/20 @ 03:21 by Justus Jay DO) Abdominal pain Acute exacerbation of chronic low back pain Affective disorder Annular tear of lumbar disc (09/12/15) Arthralgia Bilateral carpal tunnel syndrome Bipolar affective disorder, current episode depressed Chronic low back pain without sciatica (10/08/15) Chronic narcotic use (10/08/15) Diverticulitis Diverticulosis of intestine (09/05/13) Irritable bowel syndrome (09/05/13) Kidney stone Left conjunctivitis Marital conflict involving estrangement Parenting stress Peripheral neuropathy PTSD (post-traumatic stress disorder) Right wrist sprain Sciatica Sprain of right wrist, subsequent encounter (10/08/15) Tobacco use disorder Uncomplicated opioid dependence (01/23/16) Surgical History Status post tubal ligation Family History Mother Osteoarthritis of cervical spine, unspecified spinal osteoarthritis complication status Social History Smoking Status: Current every day smoker Smoking Status: Current every day smoker tobacco type: cigarettes alcohol intake frequency: 0-2 drinks per day Substance Use Type: marijuana Exam Initial Vital Signs Initial Vital Signs: Vital Signs Temperature 98.3 F 09/14/20 19:20 Pulse Rate 104 H 09/14/20 19:20 Respiratory Rate 18 09/14/20 19:20 Blood Pressure 123/78 09/14/20 19:20 Pulse Oximetry 100 09/14/20 19:20 Const General: cooperative, healthy appearing and comfortable Limitations: mental status not altered HENMT Head: normal to inspection and normocephalic Resp Effort & Inspection: normal respiratory effort Cardio Rate: regular rate Skin Lesions: no lesions Rashes: no rashes Neuro General: patient alert, patient awake and patient oriented x3 Extrem General: normal to inspection and capillary refill normal Psych Appearance: grossly normal and well kempt Speech and Movement: not agitated, restless and speech not slurred Mood: congruent mood, not manic and No angry Affect: normal affect Attitude: cooperative Thought Content: no homicidality and suicidality Scores GCS [place] coma scale eye opening: Spontaneous Shruthi coma scale verbal response: Orientated Shruthi coma scale motor response: Obey commands Shruthi coma scale total score: 15 Course Orders Ordered: ED Orders 09/14/20 21:58 Test Urine Stat Urinalysis and Microscopic Stat Urine Drug Screen, Rapid Stat 09/14/20 22:00 Acetaminophen Stat Complete Blood Count AUTO DIFF Stat Comprehensive Metabolic Panel Stat Ethanol (ETOH) Stat Salicylate Stat Thyroid Stimulating Hormone Stat 09/14/20 22:27 Consult to [employer] INBOARD/OUTBOARD - Dip Painter Stat 09/14/20 22:55 COVID19 -Nasal swab/Pre-Proc Stat Discontinued Medications Acetaminophen (Acetaminophen 325 Mg Tablet) 650 mg PO NOW ONE Stop: 09/14/20 22:23 Last Admin: 09/14/20 22:52 Dose: 650 mg Documented by: JAMES Diphenhydramine HCl (Diphenhydramine 25 Mg Tablet) 50 mg PO NOW ONE Stop: 09/14/20 20:53 Last Admin: 09/14/20 21:41 Dose: 50 mg Documented by: JAMES Melatonin (Melatonin 3 Mg Tablet) 6 mg PO NOW ONE Stop: 09/15/20 00:07 Last Admin: 09/15/20 00:26 Dose: 6 mg Documented by: JAMES Nicotine (Nicotine 21 Mg Patch) 21 mg TOP NOW ONE Stop: 09/15/20 00:07 Last Admin: 09/15/20 00:26 Dose: 21 mg Documented by: JAMES Vital Signs Vital signs: Vital Signs - 8 hr 09/14/20 23:00 Pulse Rate 84 Respiratory Rate 15 Blood Pressure 121/76 Pulse Oximetry 98 MDM - Psych Lab Data Attestation: I reviewed the patient's lab results. Result diagrams: 09/14/20 22:00 09/14/20 22:00 Labs: Lab Results 09/14/20 09/14/20 09/14/20 Range/Units 21:58 21:58 21:58 WBC (4.5-11.0) X10^3/uL RBC (4.0-5.2) X10^6/uL Hgb (12.0-16.0) g/dL Hct (36-46) % MCV (80-100) fL MCH (26-34) PG MCHC (30-36) % RDW (11.6-14.8) % Plt Count (150-400) X10^3/uL Neut % (Auto) (50-75) % Lymph % (Auto) (25-40) % [place] % (Auto) (3-14) % Eos % (Auto) (2-4) % Baso % (Auto) (0-2) % Neut # (Auto) (4874-0717) /uL Lymph # (Auto) (0991-5841) /uL [place] # (Auto) (0-900) /uL Eos # (Auto) (0-450) /uL Baso # (Auto) (0-100) /uL Sodium (137-145) mmol/L Potassium (3.4-5.1) mmol/L Chloride (98-107) mmol/L Carbon Dioxide (22-32) mmol/L BUN (7-17) mg/dL Creatinine (0.52-1.04) mg/dL Estimated GFR (>60) mL/min BUN/Creatinine Ratio (6-22) Glucose (70-100) mg/dL Calcium (8.4-10.2) mg/dL Total Bilirubin (0.2-1.3) mg/dL AST (14-36) IU/L ALT (<35) IU/L Alkaline Phosphatase (38-126) U/L Total Protein (6.3-8.2) g/dL Albumin (3.5-5.0) g/dL Globulin (1.7-4.1) g/dL Albumin/Globulin Ratio (1.0-2.8) TSH (0.47-4.68) uIU/mL Urine Color Yellow Urine Appearance Clear Urine pH 7.0 (4.5-8.0) Ur Specific [place] 1.010 (1.000-1.035) Urine Protein Negative (Negative) Urine Glucose (UA) Negative (Negative) g/dL Urine Ketones Negative (NEGATIVE) Urine Occult Blood Trace-intact (Negative) Urine Nitrate Negative (Negative) Urine Bilirubin Negative (NEGATIVE) Urine Urobilinogen 0.2 (0.2) E.U./dL Ur Leukocyte Esterase Negative (NEGATIVE) Urine RBC 1-5/hpf (0-5/HPF) Urine WBC None seen (0-5/HPF) Ur Squamous Epith Cells 5-10 /hpf H (0-5/HPF) Urine Bacteria None seen (None) Ur Culture Indicated? Cult not indicated Urine Test Negative (Negative) Salicylates (<20) mg/dL U Opiates 300ng/mL cut Negative (Negative) Ur Oxycodone Screen Negative (Negative) Urine Methadone Screen Negative (Negative) Acetaminophen (10-30) ug/mL Ur Barbiturates Screen Negative (Negative) U Tricyclic Antidepress Negative (Negative) Ur Phencyclidine Scrn Negative (Negative) Ur Amphetamines Screen Negative (Negative) U Methamphetamines Scrn Negative (Negative) Ur MDMA Scrn (Ecstasy) Negative (Negative) U Benzodiazepines Scrn Negative (Negative) Urine Cocaine Screen Negative (Negative) U Marijuana (THC) Screen Positive H (Negative) Ethyl Alcohol ( - 10) mg/dL SARS-CoV-2 (PCR) (Negative) 09/14/20 09/14/20 09/14/20 Range/Units 22:00 22:00 22:00 WBC 7.3 (4.5-11.0) X10^3/uL RBC 4.40 (4.0-5.2) X10^6/uL Hgb 13.9 (12.0-16.0) g/dL Hct 40.6 (36-46) % MCV 92.2 (80-100) fL MCH 31.7 (26-34) PG MCHC 34.4 (30-36) % RDW 12.9 (11.6-14.8) % Plt Count 261 (150-400) X10^3/uL Neut % (Auto) 61.3 (50-75) % Lymph % (Auto) 30.1 (25-40) % [place] % (Auto) 5.9 (3-14) % Eos % (Auto) 1.2 L (2-4) % Baso % (Auto) 1.5 (0-2) % Neut # (Auto) 4500 (7325-7203) /uL Lymph # (Auto) 2200 (5201-3936) /uL [place] # (Auto) 400 (0-900) /uL Eos # (Auto) 100 (0-450) /uL Baso # (Auto) 100 (0-100) /uL Sodium 138 (137-145) mmol/L Potassium 4.0 (3.4-5.1) mmol/L Chloride 103 (98-107) mmol/L Carbon Dioxide 26 (22-32) mmol/L BUN 11 (7-17) mg/dL Creatinine 0.68 (0.52-1.04) mg/dL Estimated GFR > 60.0 (>60) mL/min BUN/Creatinine Ratio 16.2 (6-22) Glucose 100 (70-100) mg/dL Calcium 10.1 (8.4-10.2) mg/dL Total Bilirubin 0.3 (0.2-1.3) mg/dL AST 21 (14-36) IU/L ALT 13 (<35) IU/L Alkaline Phosphatase 70 (38-126) U/L Total Protein 7.6 (6.3-8.2) g/dL Albumin 4.6 (3.5-5.0) g/dL Globulin 3.0 (1.7-4.1) g/dL Albumin/Globulin Ratio 1.5 (1.0-2.8) TSH 1.32 (0.47-4.68) uIU/mL Urine Color Urine Appearance Urine pH (4.5-8.0) Ur Specific Fr[place] (1.000-1.035) Urine Protein (Negative) Urine Glucose (UA) (Negative) g/dL Urine Ketones (NEGATIVE) Urine Occult Blood (Negative) Urine Nitrate (Negative) Urine Bilirubin (NEGATIVE) Urine Urobilinogen (0.2) E.U./dL Ur Leukocyte Esterase (NEGATIVE) Urine RBC (0-5/HPF) Urine WBC (0-5/HPF) Ur Squamous Epith Cells (0-5/HPF) Urine Bacteria (None) Ur Culture Indicated? Urine Test (Negative) Salicylates < 1.0 (<20) mg/dL U Opiates 300ng/mL cut (Negative) Ur Oxycodone Screen (Negative) Urine Methadone Screen (Negative) Acetaminophen < 10 L (10-30) ug/mL Ur Barbiturates Screen (Negative) U Tricyclic Antidepress (Negative) Ur Phencyclidine Scrn (Negative) Ur Amphetamines Screen (Negative) U Methamphetamines Scrn (Negative) Ur MDMA Scrn (Ecstasy) (Negative) U Benzodiazepines Scrn (Negative) Urine Cocaine Screen (Negative) U Marijuana (THC) Screen (Negative) Ethyl Alcohol < 10 ( - 10) mg/dL SARS-CoV-2 (PCR) (Negative) 09/14/20 Range/Units 22:55 WBC (4.5-11.0) X10^3/uL RBC (4.0-5.2) X10^6/uL Hgb (12.0-16.0) g/dL Hct (36-46) % MCV (80-100) fL MCH (26-34) PG MCHC (30-36) % RDW (11.6-14.8) % Plt Count (150-400) X10^3/uL Neut % (Auto) (50-75) % Lymph % (Auto) (25-40) % [place] % (Auto) (3-14) % Eos % (Auto) (2-4) % Baso % (Auto) (0-2) % Neut # (Auto) (8662-3527) /uL Lymph # (Auto) (0601-9685) /uL [place] # (Auto) (0-900) /uL Eos # (Auto) (0-450) /uL Baso # (Auto) (0-100) /uL Sodium (137-145) mmol/L Potassium (3.4-5.1) mmol/L Chloride (98-107) mmol/L Carbon Dioxide (22-32) mmol/L BUN (7-17) mg/dL Creatinine (0.52-1.04) mg/dL Estimated GFR (>60) mL/min BUN/Creatinine Ratio (6-22) Glucose (70-100) mg/dL Calcium (8.4-10.2) mg/dL Total Bilirubin (0.2-1.3) mg/dL AST (14-36) IU/L ALT (<35) IU/L Alkaline Phosphatase (38-126) U/L Total Protein (6.3-8.2) g/dL Albumin (3.5-5.0) g/dL Globulin (1.7-4.1) g/dL Albumin/Globulin Ratio (1.0-2.8) TSH (0.47-4.68) uIU/mL Urine Color Urine Appearance Urine pH (4.5-8.0) Ur Specific [place] (1.000-1.035) Urine Protein (Negative) Urine Glucose (UA) (Negative) g/dL Urine Ketones (NEGATIVE) Urine Occult Blood (Negative) Urine Nitrate (Negative) Urine Bilirubin (NEGATIVE) Urine Urobilinogen (0.2) E.U./dL Ur Leukocyte Esterase (NEGATIVE) Urine RBC (0-5/HPF) Urine WBC (0-5/HPF) Ur Squamous Epith Cells (0-5/HPF) Urine Bacteria (None) Ur Culture Indicated? Urine Test (Negative) Salicylates (<20) mg/dL U Opiates 300ng/mL cut (Negative) Ur Oxycodone Screen (Negative) Urine Methadone Screen (Negative) Acetaminophen (10-30) ug/mL Ur Barbiturates Screen (Negative) U Tricyclic Antidepress (Negative) Ur Phencyclidine Scrn (Negative) Ur Amphetamines Screen (Negative) U Methamphetamines Scrn (Negative) Ur MDMA Scrn (Ecstasy) (Negative) U Benzodiazepines Scrn (Negative) Urine Cocaine Screen (Negative) U Marijuana (THC) Screen (Negative) Ethyl Alcohol ( - 10) mg/dL SARS-CoV-2 (PCR) Negative (Negative) MDM Narrative Medical decision making narrative: Patient was very anxious upon arrival but the Benadryl did seem to improve her symptoms. She has had several changes to her medications recently. She does have chronic insomnia issues. She is here seeking voluntary admission for her panic attacks. She states that when they occur she becomes very helpless and she does have thoughts that if things do not get better that she would not want to live her life like this. Patient is voluntary. Will attempt to seek placement. Patient has remained stable. She is medically cleared. Patient accepted to [facility]. Patient is stable for transport. Discharge Plan Departure Patient Disposition: Xfer Psychiatric Hosp Clinical Impression: Acute anxiety Referrals: Ngozi Diane PA-C [Primary Care Provider] -
[2020-09-14 22:25] LABS: Acetaminophen < 10 ug/mL (10-30); Alanine Aminotransferase 13 IU/L (<35); Albumin 4.6 g/dL (3.5-5.0); Albumin Globulin Ratio 1.5 (1.0-2.8); Alkaline Phosphatase 70 U/L (38-126); Aspartate Aminotransferase 21 IU/L (14-36); BUN Creatinine Ratio 16.2 (6-22); Bilirubin Total 0.3 mg/dL (0.2-1.3); Blood Urea Nitrogen 11 mg/dL (7-17); Calcium 10.1 mg/dL (8.4-10.2); Carbon Dioxide 26 mmol/L (22-32); Chloride 103 mmol/L (98-107); Estimated Glomerular Filt Rate > 60.0 mL/min (>60); Ethanol (ETOH) < 10 mg/dL; Glucose 100 mg/dL (70-100); HEMOLYSIS < 15 (0-50); Salicylate < 1.0 mg/dL (<20); Sodium 138 mmol/L (137-145); Total Protein 7.6 g/dL (6.3-8.2)
[2020-09-14] MEDS: ACETAMINOPHEN 325 MG TABLET 650 MG PO (22:52)
[2020-09-14 23:00] VITALS: BP 121/76; PULSE 84; RESP 15; O2SAT 98
[2020-09-14 23:16] LABS: COVID19 -Nasal RAPID Negative (Negative)
[2020-09-14 23:56] LABS: Thyroid Stimulating Hormone 1.32 uIU/mL (0.47-4.68)
[2020-09-15] MEDS: MELATONIN 3 MG TABLET 6 MG PO (00:26)
[2020-09-15] MEDS: NICOTINE 21 MG PATCH TOP (00:26)
[2020-09-15 08:36] VITALS: BP 109/59; PULSE 78; RESP 18; O2SAT 99
[2020-09-15] MEDS: ACETAMINOPHEN 325 MG TABLET 650 MG PO (09:30)
[2020-09-15 12:15] VITALS: BP 116/66; PULSE 82; RESP 16; O2SAT 99
== END 2020-09-15 12:51 ==
PROVIDERS: Emergency Provider Emergency Medicine; Family Provider Physician Assistant; PCP Physician Assistant
DX: F41.9 Anxiety disorder, unspecified (principal)
CPT/HCPCS: 80053; 80305; 80320; 80329; 81001; 81025; 84443; 85025; 87635; 99284; C9803; G0480

== ENCOUNTER 2020-10-27 13:41 | Emergency (ER) | payer OTHER, MEDICAID, SELFPAY ==
--- NOTE | 2020-10-27 13:48 | DI.RAD.S_ITS ---
PROCEDURE: XR CHEST 1V INDICATIONS: chest pain TECHNIQUE: One view of the chest was acquired. COMPARISON: [facility], , CHEST 1 VIEW, 01/11/2015, 23:21. FINDINGS: Surgical changes and devices: None. Lungs and pleura: Lungs are clear. No pleural effusions or pneumothorax. Mediastinum: Mediastinal contours appear normal. Heart size is normal. Bones and chest wall: No suspicious bony lesions. Overlying soft tissues appear unremarkable. IMPRESSION: 1. No acute cardiopulmonary disease. Dictated by: Marvin Moya M.D. on 10/27/2020 at 14:18 Approved by: Marvin Moya M.D. on 10/27/2020 at 14:18
[2020-10-27 13:56] VITALS: PULSE 79; O2SAT 100
[2020-10-27 13:59] VITALS: BP 107/66; PULSE 80; RESP 18; TEMP 36.8; O2SAT 99; BMI 23.7
[2020-10-27 14:00] VITALS: BP 107/66; PULSE 80; RESP 14; O2SAT 100
[2020-10-27 14:20] LABS: INR 1.1 (0.9-1.3); Prothrombin Time 12.6 SECONDS (10.1-12.7)
[2020-10-27 14:22] LABS: PTT Partial Thromboplastin Tim 34 SECONDS (26.4-36.2)
--- NOTE | 2020-10-27 14:29 | ED_ITS ---
HPI - Chest Pain General Chief Complaint: Chest Pain Stated Complaint: chest pain Time Seen by Provider: 10/27/20 14:29 Source: patient Mode of arrival: Ambulatory Limitations: no limitations History of Present Illness HPI narrative: Patient is a 39-year-old female who presents with chest palpitations. She was started methylphenidate for new diagnosis of ADHD. She actually was started on 20 mg extended release which she says put her in mental health facility his she had a severe sympathomimetic reaction. When she got out her doctor simply lowered the dose to 5 mg immediate release tablets 3 times a day. She says this is definitely not 3 medication for her. Last night she felt like her heart was pounding she was unable to fall asleep. She typically cannot fall asleep until about 2:00 a.m. any weight which has been her whole life. She was prescribed clonidine to help her sleep at night. She did not take clonidine last night because she was afraid to. She has been staying hydrated with water she denies any caffeine use or alcohol use. No fever or chills. She has an appointment with a psychiatrist to manage her medications Related Data Home Medications Medication Instructions Recorded Confirmed ibuprofen 800 mg PO TIDP PRN 09/14/20 10/27/20 metoclopramide HCl 10 mg PO AC PRN 09/14/20 10/27/20 quetiapine 50 mg PO QPM 09/14/20 10/27/20 trazodone 100 mg PO BEDTIME PRN 09/14/20 10/27/20 clonidine HCl 0.1 mg PO BID PRN 10/27/20 10/27/20 methylphenidate HCl 15 mg PO DAILY 10/27/20 10/27/20 Allergies Allergy/AdvReac Type Severity Reaction Status Date / Time amoxicillin Allergy Intermediate ITCHY RASH Verified 10/27/20 13:59 kiwi [KIWI] Allergy Intermediate mouth Verified 10/27/20 13:59 hurt/swelling citalopram AdvReac Severe PSYCHOSIS Verified 10/27/20 13:59 fluoxetine AdvReac Severe PSYCHOSIS Verified 10/27/20 13:59 Pain contract Allergy Unknown Uncoded 10/27/20 13:59 Review of Systems Review of Systems Narrative: GENERAL: Denies chills, fatigue, malaise, fever, sweats, travel HEENT: Denies sinus pain, ear pain, sore throat, difficulty swallowing, neck pain RESPIRATORY: Denies dyspnea, cough, wheezing, hemoptysis, sputum. CARDIOVASCULAR: See HPI GASTROINTESTINAL: Denies nausea, vomiting, abdominal pain, diarrhea, constipation, melena. : Denies dysuria, frequency, incontinence, hematuria, urinary retention, flank pain. MUSCULOSKELETAL: Denies weakness, joint pain, or bony pain SKIN: No rash, no erythema, no pruritus NEUROLOGIC: Denies weakness, dizziness, headache, numbness, change in speech, confusion PSYCHIATRIC: No concerning psychosocial issues. 12 point review of systems is negative except for those stated above and HPI Patient History Medical History (Updated 10/27/20 @ 14:54 by Supriya Sotelo DO) Abdominal pain Acute exacerbation of chronic low back pain Affective disorder Annular tear of lumbar disc (09/12/15) Arthralgia Bilateral carpal tunnel syndrome Bipolar affective disorder, current episode depressed Chronic low back pain without sciatica (10/08/15) Chronic narcotic use (10/08/15) Diverticulitis Diverticulosis of intestine (09/05/13) Irritable bowel syndrome (09/05/13) Kidney stone Left conjunctivitis Marital conflict involving estrangement Parenting stress Peripheral neuropathy PTSD (post-traumatic stress disorder) Right wrist sprain Sciatica Sprain of right wrist, subsequent encounter (10/08/15) Tobacco use disorder Uncomplicated opioid dependence (01/23/16) Surgical History Status post tubal ligation Family History Mother Osteoarthritis of cervical spine, unspecified spinal osteoarthritis complication status Social History Smoking Status: Current every day smoker Smoking Status: Current every day smoker tobacco type: cigarettes alcohol intake frequency: 0-2 drinks per day Substance Use Type: marijuana Exam Initial Vital Signs Initial Vital Signs: Vital Signs Pulse Rate 79 10/27/20 13:56 Pulse Oximetry 100 10/27/20 13:56 GENERAL: Well-appearing, well-nourished and in no acute distress. HEENT: Head atraumatic,EOMI, pupils reactive, face symmetric, moist mucous membranes CARDIOVASCULAR: Regular rate and rhythm without murmurs, rubs or gallops. RESPIRATORY: Breath sounds equal bilaterally, no wheezes rales or rhonchi. ABDOMEN: Soft, nontender. Normoactive bowel sounds all 4 quadrants. No guarding or rebound. EXTREMITIES: Normal range of motion, no clubbing or edema. Neurovascularly intact NEUROLOGICAL: Alert and oriented x4.Normal gait and speech. Cranial nerves II through XII grossly intact. SKIN: Warm, dry, no laceration, no petechiae, no rashes or lesions. Course Orders Ordered: ED Orders 10/27/20 13:48 XR chest 1V Stat EKG-12 Lead Stat 10/27/20 13:55 Complete Blood Count AUTO DIFF Stat Comprehensive Metabolic Panel Stat Lipase Stat Partial Thromboplastin Time Stat Prothrombin Time INR Stat Troponin & CK Cardiac Panel Stat Vital Signs Vital signs: Vital Signs - 8 hr 10/27/20 13:56 10/27/20 13:59 10/27/20 14:00 Temperature 98.2 F Pulse Rate 79 80 80 Respiratory Rate 18 14 Blood Pressure 107/66 107/66 Pulse Oximetry 100 99 100 10/27/20 14:30 10/27/20 14:58 10/27/20 15:00 Temperature Pulse Rate 75 77 74 Respiratory Rate 20 20 23 Blood Pressure 105/67 107/60 Pulse Oximetry 100 100 MDM - Chest Pain Lab Data Attestation: I reviewed the patient's lab results. Result diagrams: 10/27/20 13:55 10/27/20 13:55 Labs: Lab Results 10/27/20 10/27/20 10/27/20 Range/Units 13:55 13:55 13:55 WBC 6.0 (4.5-11.0) X10^3/uL RBC 4.52 (4.0-5.2) X10^6/uL Hgb 14.3 (12.0-16.0) g/dL Hct 42.2 (36-46) % MCV 93.4 (80-100) fL MCH 31.7 (26-34) PG MCHC 33.9 (30-36) % RDW 12.8 (11.6-14.8) % Plt Count 246 (150-400) X10^3/uL Neut % (Auto) 57.1 (50-75) % Lymph % (Auto) 27.8 (25-40) % [place] % (Auto) 10.1 (3-14) % Eos % (Auto) 3.6 (2-4) % Baso % (Auto) 1.4 (0-2) % Neut # (Auto) 3400 (5564-7110) /uL Lymph # (Auto) 1700 (3962-7735) /uL [place] # (Auto) 600 (0-900) /uL Eos # (Auto) 200 (0-450) /uL Baso # (Auto) 100 (0-100) /uL PT 12.6 (10.1-12.7) SECONDS INR 1.1 (0.9-1.3) APTT 34 (26.4-36.2) SECONDS Sodium 141 (137-145) mmol/L Potassium 4.0 (3.4-5.1) mmol/L Chloride 107 (98-107) mmol/L Carbon Dioxide 27 (22-32) mmol/L BUN 9 (7-17) mg/dL Creatinine 0.82 (0.52-1.04) mg/dL Estimated GFR > 60.0 (>60) mL/min BUN/Creatinine Ratio 11.0 (6-22) Glucose 81 (70-100) mg/dL Calcium 9.6 (8.4-10.2) mg/dL Total Bilirubin 0.3 (0.2-1.3) mg/dL AST 22 (14-36) IU/L ALT 16 (<35) IU/L Alkaline Phosphatase 54 (38-126) U/L Total Creatine Kinase 21 L (30-135) U/L CK-MB (CK-2) TNP CK-MB (CK-2) Rel Index TNP Troponin I < 0.012 (0.01-0.034) ng/mL Total Protein 7.4 (6.3-8.2) g/dL Albumin 4.4 (3.5-5.0) g/dL Globulin 3.0 (1.7-4.1) g/dL Albumin/Globulin Ratio 1.5 (1.0-2.8) Lipase 87 (23-300) U/L Imaging Data Chest x-ray: Radiologist's Impression: PROCEDURE: XR CHEST 1V INDICATIONS: chest pain TECHNIQUE: One view of the chest was acquired. COMPARISON: [facility], , CHEST 1 VIEW, 01/11/2015, 23:21. FINDINGS: Surgical changes and devices: None. Lungs and pleura: Lungs are clear. No pleural effusions or pneumothorax. Mediastinum: Mediastinal contours appear normal. Heart size is normal. Bones and chest wall: No suspicious bony lesions. Overlying soft tissues appear unremarkable. IMPRESSION: 1. No acute cardiopulmonary disease. Dictated by: Marvin Moya M.D. on 10/27/2020 at 14:18 ECG Data Attestation: I personally reviewed and interpreted this ECG as follows: Interpretation: Sinus rhythm rate 80 p.r. interval 124 QRS [address] c hanges MDM Narrative Medical decision making narrative: Patient is likely have a reaction to methylphenidate at this time I recommend she stop it completely. She has appointment in 3 days for medication re-evaluation. This is clearly not the right choice for her. Blood work x-ray and workup are negative Discharge Plan Departure Patient Disposition: Home Clinical Impression: Heart palpitations Medication reaction Qualifiers: Encounter type: initial encounter Qualified Code(s): T50.905A - Adverse effect of unspecified drugs, medicaments and biological substances, initial encounter Instructions: DI for Palpitations Activity Restrictions/Additional Instructions: *You have been diagnosed with palpitations, medication reaction *What to do: Stop taking methylphenidate I think this is the cause of a lot of your symptoms. Please discuss with on 2 stay other options. Please be sure that your thyroid has been checked by her primary care provider as well. *Continue to take medications as directed Ylu may continue to take clonidine at night if needed to sleep *Follow up with your primary care provider in 2-3 days *Return to ER if you should have palpitations dizziness lightheadedness passing out chest pain or any new, worsening or concerning symptoms Prescriptions: No Action trazodone 100 mg tablet 100 mg PO BEDTIME PRN (Reason: Insomnia) RF: 0 metoclopramide HCl 10 mg tablet 10 mg PO AC PRN (Reason: Nausea) RF: 0 quetiapine 50 mg tablet 50 mg PO QPM RF: 0 ibuprofen 800 MG tablet 800 mg PO TIDP PRN (Reason: Pain (Scale Score 1-3)) RF: 0 methylphenidate HCl 5 mg tablet 15 mg PO DAILY RF: 0 clonidine HCl 0.1 mg tablet 0.1 mg PO BID PRN (Reason: Anxiety) RF: 0 Referrals: Ngozi Diane PA-C [Primary Care Provider] -
[2020-10-27 14:30] VITALS: BP 105/67; PULSE 75; RESP 20; O2SAT 100
[2020-10-27 14:36] LABS: Add Manual Diff / Slide Review NO; Basophils Absolute Auto 100 /uL (0-100); Basophils Percent Auto 1.4 % (0-2); Eosinophils Absolute Auto 200 /uL (0-450); Eosinophils Percent Auto 3.6 % (2-4); Hematocrit 42.2 % (36-46); Hemoglobin 14.3 g/dL (12.0-16.0); Lymphocytes Absolute Auto 1700 /uL (1100-4500); Lymphocytes Percent Auto 27.8 % (25-40); Mean Corpuscular HGB Conc 33.9 % (30-36); Mean Corpuscular Hemoglobin 31.7 PG (26-34); Mean Corpuscular Volume 93.4 fL (80-100); Monocytes Absolute Auto 600 /uL (0-900); Monocytes Percent Auto 10.1 % (3-14); Neutrophils Absolute Auto 3400 /uL (1500-7000); Neutrophils Percent Auto 57.1 % (50-75); Platelet Count 246 X10^3/uL (150-400); Red Blood Cell Count 4.52 X10^6/uL (4.0-5.2); Red Cell Distribution Width 12.8 % (11.6-14.8)
[2020-10-27 14:37] LABS: Alanine Aminotransferase 16 IU/L (<35); Albumin 4.4 g/dL (3.5-5.0); Albumin Globulin Ratio 1.5 (1.0-2.8); Alkaline Phosphatase 54 U/L (38-126); Aspartate Aminotransferase 22 IU/L (14-36); Bilirubin Total 0.3 mg/dL (0.2-1.3); Blood Urea Nitrogen 9 mg/dL (7-17); Calcium 9.6 mg/dL (8.4-10.2); Carbon Dioxide 27 mmol/L (22-32); Chloride 107 mmol/L (98-107); Creatine Kinase 21 U/L (30-135); Estimated Glomerular Filt Rate > 60.0 mL/min (>60); Glucose 81 mg/dL (70-100); HEMOLYSIS < 15 (0-50); Lipase 87 U/L (23-300); Sodium 141 mmol/L (137-145); Total Protein 7.4 g/dL (6.3-8.2)
[2020-10-27 14:48] LABS: Troponin I < 0.012 ng/mL (0.01-0.034)
[2020-10-27 14:58] VITALS: BP 107/60; PULSE 77; RESP 20; O2SAT 100
[2020-10-27 15:00] VITALS: PULSE 74; RESP 23
== END 2020-10-27 15:02 | disposition home or self-care (01) ==
PROVIDERS: Emergency Provider Emergency Medicine; Family Provider Physician Assistant; PCP Physician Assistant
DX: R00.2 Palpitations (principal); T50.905A Adverse effect of unspecified drugs, medicaments and biological substances, initial encounter
CPT/HCPCS: 36415; 71045; 80053; 82550; 83690; 84484; 85025; 85610; 85730; 93005; 99284

== ENCOUNTER 2022-03-31 14:16 | Emergency (ER) | payer OTHER, MEDICAID, SELFPAY ==
[2022-03-31 14:25] VITALS: BP 122/79; PULSE 101; RESP 18; TEMP 37; O2SAT 99; BMI 21.7
--- NOTE | 2022-03-31 14:30 | DI.RAD.S_ITS ---
PROCEDURE: XR CHEST 1V INDICATIONS: chest pain TECHNIQUE: One view of the chest was acquired. COMPARISON: [facility], CR, XR CHEST 1V, 10/27/2020, 13:52. FINDINGS: Surgical changes and devices: None. Lungs and pleura: Vague bibasilar infiltrative density noted background of pulmonary hyperinflation. No pneumothorax. Mediastinum: Mediastinal contours appear normal. Heart size is normal. Bones and chest wall: No suspicious bony lesions. Overlying soft tissues appear unremarkable. IMPRESSION: Vague bibasilar infiltrative density. Differential would include dense breasts tissue versus pulmonary infiltrates. Consider full upright frontal and lateral radiographs Approved by: Sruya Baumann M.D. on 03/31/2022 at 16:00
[2022-03-31 14:53] LABS: Add Manual Diff / Slide Review NO; Basophils Absolute Auto 100 /uL (0-100); Basophils Percent Auto 1.2 % (0-2); Eosinophils Absolute Auto 100 /uL (0-450); Eosinophils Percent Auto 1.1 % (2-4); Hematocrit 36.5 % (36-46); Hemoglobin 12.4 g/dL (12.0-16.0); Lymphocytes Absolute Auto 2200 /uL (1100-4500); Mean Corpuscular Hemoglobin 30.9 PG (26-34); Mean Corpuscular Volume 90.8 fL (80-100); Monocytes Absolute Auto 400 /uL (0-900); Monocytes Percent Auto 6.5 % (3-14); Neutrophils Absolute Auto 3800 /uL (1500-7000); Neutrophils Percent Auto 57.2 % (50-75); Platelet Count 315 X10^3/uL (150-400); Red Blood Cell Count 4.02 X10^6/uL (4.0-5.2); Red Cell Distribution Width 12.2 % (11.6-14.8); White Blood Cell Count 6.6 X10^3/uL (4.5-11.0)
[2022-03-31 15:03] LABS: Alanine Aminotransferase 16 IU/L (<35); Albumin 4.1 g/dL (3.5-5.0); Albumin Globulin Ratio 1.3 (1.0-2.8); Alkaline Phosphatase 59 U/L (38-126); Aspartate Aminotransferase 23 IU/L (14-36); BUN Creatinine Ratio 22.2 (6-22); Bilirubin Total 0.3 mg/dL (0.2-1.3); Blood Urea Nitrogen 16 mg/dL (7-17); Calcium 8.9 mg/dL (8.4-10.2); Carbon Dioxide 24 mmol/L (22-32); Chloride 103 mmol/L (98-107); Creatine Kinase 63 U/L (30-135); Estimated Glomerular Filt Rate > 60 mL/min (>60); Globulin 3.1 g/dL (1.7-4.1); Glucose 89 mg/dL (70-100); HEMOLYSIS < 15 (0-50); Lipase 59 U/L (23-300); Magnesium 1.8 mg/dL (1.6-2.3); Potassium 3.6 mmol/L (3.4-5.1); Sodium 138 mmol/L (137-145); Total Protein 7.2 g/dL (6.3-8.2)
[2022-03-31 15:15] LABS: Troponin I < 0.012 ng/mL (0.01-0.034)
[2022-03-31 15:22] VITALS: BP 120/78; PULSE 87; RESP 16
[2022-03-31 15:33] VITALS: BP 110/60; PULSE 75; RESP 17; O2SAT 98
--- NOTE | 2022-03-31 15:36 | ED.CHESTPAIN ---
HPI - Chest Pain General Chief Complaint: Chest Pain Stated Complaint: CHEST PAIN, HEAD ACHE, RAPID HEART RATE Time Seen by Provider: 03/31/22 14:58 Source: patient Mode of arrival: Ambulatory Limitations: no limitations History of Present Illness HPI narrative: 41-year-old female. Here for evaluation of several weeks of intermittent left-sided chest discomfort, elevated blood pressure, palpitations, lightheadedness, stating that her Apple watch as telling her that her heart rate is beating fast. She was concerned about prediabetes. Concern about having an elevated potassium. She went to outside facility where she had a workup and was discharged. Can get in to see her primary doctor for the next 2 weeks. Was sent to this emergency department for for lab work. Related Data Home Medications Medication Instructions Recorded Confirmed ibuprofen 800 mg tablet 800 mg PO TIDP PRN Pain (Scale 09/14/20 10/27/20 Score 1-3) metoclopramide HCl 10 mg tablet 10 mg PO AC PRN Nausea 09/14/20 10/27/20 quetiapine 50 mg tablet 50 mg PO QPM 09/14/20 10/27/20 trazodone 100 mg tablet 100 mg PO BEDTIME PRN Insomnia 09/14/20 10/27/20 clonidine HCl 0.1 mg tablet 0.1 mg PO BID PRN Anxiety 10/27/20 10/27/20 methylphenidate HCl 5 mg tablet 15 mg PO DAILY 10/27/20 10/27/20 Allergies Allergy/AdvReac Type Severity Reaction Status Date / Time amoxicillin Allergy Intermediate ITCHY RASH Verified 03/31/22 14:29 kiwi [KIWI] Allergy Intermediate mouth Verified 03/31/22 14:29 hurt/swelling citalopram AdvReac Severe PSYCHOSIS Verified 03/31/22 14:29 fluoxetine AdvReac Severe PSYCHOSIS Verified 03/31/22 14:29 Pain contract Allergy Unknown Uncoded 03/31/22 14:29 Review of Systems Review of Systems ROS Unobtainable: All systems reviewed & are unremarkable except as noted in HPI and below Patient History Medical History Abdominal pain Acute exacerbation of chronic low back pain Affective disorder Annular tear of lumbar disc (09/12/15) Arthralgia Bilateral carpal tunnel syndrome Bipolar affective disorder, current episode depressed Chronic low back pain without sciatica (10/08/15) Chronic narcotic use (10/08/15) Diverticulitis Diverticulosis of intestine (09/05/13) Irritable bowel syndrome (09/05/13) Kidney stone Left conjunctivitis Marital conflict involving estrangement Parenting stress Peripheral neuropathy PTSD (post-traumatic stress disorder) Right wrist sprain Sciatica Sprain of right wrist, subsequent encounter (10/08/15) Tobacco use disorder Uncomplicated opioid dependence (01/23/16) Surgical History Status post tubal ligation Family History Mother Osteoarthritis of cervical spine, unspecified spinal osteoarthritis complication status Social History Smoking Status: Current every day smoker Smoking Status: Current every day smoker tobacco type: cigarettes alcohol intake frequency: 0-2 drinks per day Substance Use Type: marijuana Exam Initial Vital Signs Initial Vital Signs: Vital Signs Temperature 98.6 F 03/31/22 14:25 Pulse Rate 101 H 03/31/22 14:25 Respiratory Rate 18 03/31/22 14:25 Blood Pressure 122/79 03/31/22 14:25 Pulse Oximetry 99 03/31/22 14:25 Oxygen Delivery Method 03/31/22 14:25 Const General: cooperative and comfortable HENMT Head: normal to inspection and normocephalic Resp Effort & Inspection: normal respiratory effort Auscultation: clear to auscultation bilaterally Cardio Rate: regular rate Rhythm: regular rhythm GI Inspection: normal to inspection Skin General: no rashes or lesions noted Neuro General: patient alert, patient awake, patient oriented x3 and moves all extremities Extrem General: normal to inspection and capillary refill normal Psych Appearance: grossly normal and well kempt Course Orders Ordered: ED Orders 03/31/22 14:29 EKG-12 Lead Stat 03/31/22 14:30 XR chest 1V Stat 03/31/22 14:40 Complete Blood Count AUTO DIFF Stat Comprehensive Metabolic Panel Stat Lipase Stat Magnesium Stat Troponin & CK Cardiac Panel Stat Vital Signs Vital signs: Vital Signs - 8 hr 03/31/22 14:25 03/31/22 15:22 03/31/22 15:33 Temperature 98.6 F Pulse Rate 101 H 87 75 Respiratory Rate 18 16 17 Blood Pressure 122/79 120/78 110/60 Pulse Oximetry 99 98 Oxygen Delivery Method Room Air Room Air 03/31/22 16:03 03/31/22 16:51 03/31/22 17:22 Temperature Pulse Rate 96 H 73 Respiratory Rate 26 H Blood Pressure 112/66 128/70 109/59 L Pulse Oximetry 99 100 Oxygen Delivery Method Room Air Room Air MDM - Chest Pain Lab Data Attestation: I reviewed the patient's lab results. Result diagrams: 03/31/22 14:40 03/31/22 14:40 Labs: Lab Results 03/31/22 03/31/22 Range/Units 14:40 14:40 WBC 6.6 (4.5-11.0) X10^3/uL RBC 4.02 (4.0-5.2) X10^6/uL Hgb 12.4 (12.0-16.0) g/dL Hct 36.5 (36-46) % MCV 90.8 (80-100) fL MCH 30.9 (26-34) PG MCHC 34.0 (30-36) % RDW 12.2 (11.6-14.8) % Plt Count 315 (150-400) X10^3/uL Neut % (Auto) 57.2 (50-75) % Lymph % (Auto) 34.0 (25-40) % [place] % (Auto) 6.5 (3-14) % Eos % (Auto) 1.1 L (2-4) % Baso % (Auto) 1.2 (0-2) % Neut # (Auto) 3800 (5780-4226) /uL Lymph # (Auto) 2200 (9286-4908) /uL [place] # (Auto) 400 (0-900) /uL Eos # (Auto) 100 (0-450) /uL Baso # (Auto) 100 (0-100) /uL Sodium 138 (137-145) mmol/L Potassium 3.6 (3.4-5.1) mmol/L Chloride 103 (98-107) mmol/L Carbon Dioxide 24 (22-32) mmol/L BUN 16 (7-17) mg/dL Creatinine 0.72 (0.52-1.04) mg/dL Estimated GFR > 60 (>60) mL/min BUN/Creatinine Ratio 22.2 H (6-22) Glucose 89 (70-100) mg/dL Calcium 8.9 (8.4-10.2) mg/dL Magnesium 1.8 (1.6-2.3) mg/dL Total Bilirubin 0.3 (0.2-1.3) mg/dL AST 23 (14-36) IU/L ALT 16 (<35) IU/L Alkaline Phosphatase 59 (38-126) U/L Total Creatine Kinase 63 (30-135) U/L CK-MB (CK-2) TNP CK-MB (CK-2) Rel Index TNP Troponin I < 0.012 (0.01-0.034) ng/mL Total Protein 7.2 (6.3-8.2) g/dL Albumin 4.1 (3.5-5.0) g/dL Globulin 3.1 (1.7-4.1) g/dL Albumin/Globulin Ratio 1.3 (1.0-2.8) Lipase 59 (23-300) U/L Imaging Data Chest x-ray: Radiologist's Impression: [address] [id number] XRay Report Signed Patient: Teresa Gold MR#: [id number] : 1980 Acct:[id number] Age/Sex: 41 / F Date of Service: 03/31/22 Loc: Accession Number: [id number] ?? Procedure: XR chest 1V Ordering Provider: Justus Jay D.O. PROCEDURE:? XR CHEST 1V ? INDICATIONS:? chest pain ? TECHNIQUE:? One view of the chest was acquired.? ? COMPARISON:? [facility], CR, XR CHEST 1V, 10/27/2020, 13:52. ? FINDINGS:? ? Surgical changes and devices:? None.? ? Lungs and pleura:? Vague bibasilar infiltrative density noted background of pulmonary hyperinflation.? No pneumothorax. ? Mediastinum:? Mediastinal contours appear normal.? Heart size is normal.? ? Bones and chest wall:? No suspicious bony lesions.? Overlying soft tissues appear unremarkable.? ? IMPRESSION:? ? Vague bibasilar infiltrative density.? Differential would include dense breasts tissue versus pulmonary infiltrates.? Consider full upright frontal and lateral radiographs ? ? ? Approved by: Surya Baumann, M.D. on 03/31/2022 at 16:00? ECG Data Attestation: I personally reviewed and interpreted this ECG as follows: Interpretation: Sinus rhythm Ventricular rate 80 in excellent normal QT Normal QTC Right bundle-branch block No ST T wave changes MDM Narrative Medical decision making narrative: Unremarkable labs, unremarkable exam, unremarkable vital signs, unremarkable EKG. No further workup required out of the emergency department. Informed her that she should follow-up with her primary doctor for follow-up. She was given return precautions. She expressed understanding and agreement. Discharge Plan Departure Patient Disposition: Home Clinical Impression: Atypical chest pain, Palpitations, Headache Instructions: DI for Atypical Chest Pain Activity Restrictions/Additional Instructions: Recommend that you continue to take all of your medications as directed. Contact your primary provider for a follow-up and return to the emergency department for any new or worsening symptoms. Prescriptions: No Action trazodone 100 mg tablet 100 mg PO BEDTIME PRN (Reason: Insomnia) metoclopramide HCl 10 mg tablet 10 mg PO AC PRN (Reason: Nausea) quetiapine 50 mg tablet 50 mg PO QPM ibuprofen 800 MG tablet 800 mg PO TIDP PRN (Reason: Pain (Scale Score 1-3)) methylphenidate HCl 5 mg tablet 15 mg PO DAILY Rx Instructions: total dose 15 mg - takes in 5 mg incraments. clonidine HCl 0.1 mg tablet 0.1 mg PO BID PRN (Reason: Anxiety) Referrals: Ngozi Diane PA-C [Primary Care Provider] - Visit Report Forms: Patient Portal/API
[2022-03-31 16:03] VITALS: BP 112/66
[2022-03-31 16:51] VITALS: BP 128/70; PULSE 96; O2SAT 99
[2022-03-31 17:22] VITALS: BP 109/59; PULSE 73; RESP 26; O2SAT 100
== END 2022-03-31 17:23 | disposition home or self-care (01) ==
PROVIDERS: Emergency Provider Emergency Medicine; Family Provider Physician Assistant; PCP Physician Assistant
DX: R07.89 Other chest pain (principal); I10 Essential (primary) hypertension; R00.2 Palpitations; R51.9 Headache, unspecified
CPT/HCPCS: 36415; 71045; 80053; 82550; 83690; 83735; 84484; 85025; 93005; 93010; 99284

== ENCOUNTER 2022-04-05 22:13 | Emergency (ER) | payer OTHER, MEDICAID, SELFPAY ==
[2022-04-05 22:29] VITALS: BP 113/66; PULSE 65; RESP 16; TEMP 36.4; O2SAT 100; BMI 22.5
--- NOTE | 2022-04-05 22:36 | PC.NURSE ---
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
--- NOTE | 2022-04-05 23:07 | ED_ITS ---
HPI - Chest Pain General Chief Complaint: Chest Pain Stated Complaint: CHEST PAIN / PALPITATIONS Time Seen by Provider: 04/05/22 22:38 Source: patient Mode of arrival: Ambulatory Limitations: no limitations History of Present Illness HPI narrative: 41-year-old woman with history of recurrent of atypical chest pain, reports of rapid heart we 8 her her Apple watch, multiple real estate administrative assistant abnormalities, anxiety, ADHD who presents for the 2nd time in 5 days with complaints of left-sided chest pain and rapid heartbeat. She notes that she did not do well with methylphenidate but is doing very well with Adderall 20 mg at 6:00 a.m. and noon. She does not relate palpitations to Adderall dosing. She notes she has been experiencing quite a bit of stress lately with a 16-year-old daughter who is a 12-year-old son who is ?very hormonal?, along with the very stressful job. She has had increasing episodes of palpitations today she noted that she had 7 irregular beats in 10 minutes. She has been told in the past that was PACs but she is still having significant complaints of dizziness, weakness and chest pain associated with each of those palpitations. She finds that if she has large glass of water and some magnesium this frequently can help. She has a follow-up appointment with her primary care doctor coming up in the near future after ED visit of March 31 for similar complaints. She notes that she actually has been taking all of her medications and has been keeping to a very strict schedule for getting up in the morning and going to bed at night. She is focused very much on diet and is avoiding processed foods as much as she can. Current medications include as needed albuterol, Adderall 20 mg 6:00 a.m. and noon, Lunesta 2 mg at bedtime, Lamictal 100 mg at bedtime. She is no longer taking methylphenidate, metoclopramide, quetiapine, trazodone Related Data Home Medications Medication Instructions Recorded Confirmed ibuprofen 800 mg tablet 800 mg PO TIDP PRN Pain (Scale 09/14/20 10/27/20 Score 1-3) metoclopramide HCl 10 mg tablet 10 mg PO AC PRN Nausea 09/14/20 10/27/20 quetiapine 50 mg tablet 50 mg PO QPM 09/14/20 10/27/20 trazodone 100 mg tablet 100 mg PO BEDTIME PRN Insomnia 09/14/20 10/27/20 clonidine HCl 0.1 mg tablet 0.1 mg PO BID PRN Anxiety 10/27/20 10/27/20 methylphenidate HCl 5 mg tablet 15 mg PO DAILY 10/27/20 10/27/20 Previous Rx's Medication Instructions Recorded metoprolol tartrate 25 mg tablet 12.5 mg PO BID PRN frequent 04/06/22 palpitations #30 tabs Allergies Allergy/AdvReac Type Severity Reaction Status Date / Time amoxicillin Allergy Intermediate ITCHY RASH Verified 03/31/22 14:29 kiwi [KIWI] Allergy Intermediate mouth Verified 03/31/22 14:29 hurt/swelling citalopram AdvReac Severe PSYCHOSIS Verified 03/31/22 14:29 fluoxetine AdvReac Severe PSYCHOSIS Verified 03/31/22 14:29 Pain contract Allergy Unknown Uncoded 03/31/22 14:29 Review of Systems Review of Systems Narrative: Remainder of complete review of systems is otherwise unremarkable except for that included in the HPI. Patient History Medical History (Updated 04/05/22 @ 23:55 by Dayana Cruz MD) Abdominal pain Acute exacerbation of chronic low back pain Affective disorder Annular tear of lumbar disc (09/12/15) Arthralgia Bilateral carpal tunnel syndrome Bipolar affective disorder, current episode depressed Chronic low back pain without sciatica (10/08/15) Chronic narcotic use (10/08/15) Diverticulitis Diverticulosis of intestine (09/05/13) Irritable bowel syndrome (09/05/13) Kidney stone Left conjunctivitis Marital conflict involving estrangement Parenting stress Peripheral neuropathy PTSD (post-traumatic stress disorder) Right wrist sprain Sciatica Sprain of right wrist, subsequent encounter (10/08/15) Tobacco use disorder Uncomplicated opioid dependence (01/23/16) Surgical History Status post tubal ligation Family History Mother Osteoarthritis of cervical spine, unspecified spinal osteoarthritis complication status Social History Smoking Status: Current every day smoker Smoking Status: Current every day smoker tobacco type: cigarettes alcohol intake frequency: 0-2 drinks per day Substance Use Type: marijuana Exam Initial Vital Signs Initial Vital Signs: Vital Signs Temperature 97.6 F 04/05/22 22:29 Pulse Rate 65 04/05/22 22:29 Respiratory Rate 16 04/05/22 22:29 Blood Pressure 113/66 04/05/22 22:29 Pulse Oximetry 100 04/05/22 22:29 Oxygen Delivery Method 04/05/22 22:29 General: Healthy appearing, in no acute distress. Able to give a complete and coherent history. Well-nourished well-developed HEENT: Moist mucous membranes, normal sclera with reactive pupils, Neck: No JVD, supple Respiratory: Lungs are clear to auscultation, no wheezing no rales no rhonchi. Full and symmetrical air movement Cardiac: Regular rate and rhythm no murmurs no bruits Abdomen: Soft, nontender, good bowel tones, no flank pain Skin: Warm and dry, no rashes Neurologic: Grossly neurologically intact with no obvious asymmetries or abnormalities Extremities: No trauma, well perfused Psych: Cooperative, appropriate insight and affect, slightly anxious but normal speech, thought process, eye contact Course Orders Ordered: ED Orders 04/05/22 22:50 Complete Blood Count AUTO DIFF Stat Comprehensive Metabolic Panel Stat D Dimer Stat Lipase Stat Magnesium Stat Troponin & CK Cardiac Panel Stat 04/05/22 23:25 XR chest 1V Stat EKG-12 Lead Stat Discontinued Medications Metoprolol Tartrate (Metoprolol Ir 25 Mg Tablet) 12.5 mg PO NOW ONE Stop: 04/05/22 23:44 Last Admin: 04/05/22 23:50 Dose: 12.5 mg Documented By: VIKI Vital Signs Vital signs: Vital Signs - 8 hr 04/05/22 22:29 04/05/22 23:47 Temperature 97.6 F Pulse Rate 65 73 Respiratory Rate 16 16 Blood Pressure 113/66 110/63 Pulse Oximetry 100 100 Oxygen Delivery Method Room Air Room Air MDM - Chest Pain Lab Data Result diagrams: 04/05/22 22:50 04/05/22 22:50 Labs: Lab Results 04/05/22 04/05/22 04/05/22 Range/Units 22:50 22:50 22:50 WBC 4.6 (4.5-11.0) X10^3/uL RBC 4.02 (4.0-5.2) X10^6/uL Hgb 12.6 (12.0-16.0) g/dL Hct 36.8 (36-46) % MCV 91.6 (80-100) fL MCH 31.4 (26-34) PG MCHC 34.2 (30-36) % RDW 12.5 (11.6-14.8) % Plt Count 279 (150-400) X10^3/uL Neut % (Auto) 49.4 L (50-75) % Lymph % (Auto) 34.7 (25-40) % [place] % (Auto) 11.3 (3-14) % Eos % (Auto) 3.5 (2-4) % Baso % (Auto) 1.1 (0-2) % Neut # (Auto) 2300 (9145-3760) /uL Lymph # (Auto) 1600 (1845-0657) /uL [place] # (Auto) 500 (0-900) /uL Eos # (Auto) 200 (0-450) /uL Baso # (Auto) 0 (0-100) /uL D-Dimer 297 (<500) ng/ml Sodium 138 (137-145) mmol/L Potassium 3.8 (3.4-5.1) mmol/L Chloride 107 (98-107) mmol/L Carbon Dioxide 22 (22-32) mmol/L BUN 18 H (7-17) mg/dL Creatinine 0.88 (0.52-1.04) mg/dL Estimated GFR > 60 (>60) mL/min BUN/Creatinine Ratio 20.5 (6-22) Glucose 111 H (70-100) mg/dL Calcium 8.4 (8.4-10.2) mg/dL Magnesium 2.0 (1.6-2.3) mg/dL Total Bilirubin 0.2 (0.2-1.3) mg/dL AST 21 (14-36) IU/L ALT 16 (<35) IU/L Alkaline Phosphatase 67 (38-126) U/L Total Creatine Kinase 54 (30-135) U/L CK-MB (CK-2) TNP CK-MB (CK-2) Rel Index TNP Troponin I < 0.012 (0.01-0.034) ng/mL Total Protein 6.6 (6.3-8.2) g/dL Albumin 3.8 (3.5-5.0) g/dL Globulin 2.8 (1.7-4.1) g/dL Albumin/Globulin Ratio 1.4 (1.0-2.8) Lipase 117 D (23-300) U/L Imaging Data Chest x-ray: My Impression: Mild hyperinflation, no cardiomegaly, no infiltrates no pneumothorax ECG Data Interpretation: Sinus rhythm at a rate of 79, incomplete right bundle-branch block. Rare PAC No acute ischemic changes MDM Narrative Medical decision making narrative: 41-year-old woman with multiple psychosocial stressors currently, baseline anxiety occasional PACs to which she is dramatically symptomatic. There is no evidence of life-threatening abnormality. She was given 12.5 mg of metoprolol tartrate in the emergency department and found that it did seem to help. Believe that using this as an as needed medication on days when she is having more frequent PACs may well offer her more control over her symptoms and will hopefully make the symptoms less bothersome. There is no evidence of acute coronary syndrome, pulmonary embolism, pneumothorax, infection, thyroid abnormalities. She is safe for home discharge and will follow-up with her primary care doctor Discharge Plan Departure Patient Disposition: Home Clinical Impression: PAC (premature atrial contraction) Instructions: DI for Palpitations Activity Restrictions/Additional Instructions: Thank you for coming in today Your workup was quite reassuring. There is no life-threatening issue that is identified. Specifically there is no heart attack or heart attack like sy ndrome, no severe thyroid problems, no significant anemia. I am not seeing evidence for blood clots in your lungs, collapsed lungs, enlarged heart I do suspect that your overall stress levels are contributing to your symptoms. You do appear to be having premature atrial contractions and you are quite sensitive to that. This is an early beat and is not a sign of heart attack, a life-threatening cardiac rhythm or other complication. In the emergency department I gave you a small dose of metoprolol. Sometimes this can be helpful in decreasing the frequency and intensity of PACs. You can use up to 12.5 mg morning and night when you are having particularly bad days with symptomatic PACs. You do not need to take it on a regular basis This prescription was electronically transmitted to [facility] Please do keep your follow-up scheduled with your primary care physician If you find that you are getting worse or develop any new symptoms, please feel free to return to the emergency department for further evaluation. Prescriptions: New metoprolol tartrate 25 mg tablet 12.5 mg PO BID PRN (Reason: frequent palpitations) Qty: 30 0RF No Action trazodone 100 mg tablet 100 mg PO BEDTIME PRN (Reason: Insomnia) metoclopramide HCl 10 mg tablet 10 mg PO AC PRN (Reason: Nausea) quetiapine 50 mg tablet 50 mg PO QPM ibuprofen 800 MG tablet 800 mg PO TIDP PRN (Reason: Pain (Scale Score 1-3)) methylphenidate HCl 5 mg tablet 15 mg PO DAILY Rx Instructions: total dose 15 mg - takes in 5 mg incraments. clonidine HCl 0.1 mg tablet 0.1 mg PO BID PRN (Reason: Anxiety) Referrals: Ngozi Diane PA-C [Primary Care Provider] -
--- NOTE | 2022-04-05 23:25 | DI.RAD.S_ITS ---
PROCEDURE: XR CHEST 1V INDICATIONS: chest pain TECHNIQUE: One view of the chest was acquired. COMPARISON: [facility], CR, XR CHEST 2 VIEWS, 05/29/2021, 10:01. [facility], CR, XR CHEST 1V, 10/27/2020, 13:52. . [facility], CR, XR CHEST 1V, 03/31/2022, 14:41. FINDINGS: Surgical changes and devices: None. Lungs and pleura: Lungs are clear. No pleural effusions or pneumothorax. Mediastinum: Mediastinal contours appear normal. Heart size is normal. Bones and chest wall: No suspicious bony lesions. Overlying soft tissues appear unremarkable. IMPRESSION: Portable chest within normal limits. The previously seen poorly defined infiltrate has resolved. Dictated by: Jorge Bustamante M.D. on 04/06/2022 at 7:16 Approved by: Jorge Bustamante M.D. on 04/06/2022 at 7:17
[2022-04-05 23:31] LABS: Add Manual Diff / Slide Review NO; Basophils Absolute Auto 0 /uL (0-100); Basophils Percent Auto 1.1 % (0-2); Eosinophils Absolute Auto 200 /uL (0-450); Eosinophils Percent Auto 3.5 % (2-4); Hematocrit 36.8 % (36-46); Hemoglobin 12.6 g/dL (12.0-16.0); Lymphocytes Absolute Auto 1600 /uL (1100-4500); Lymphocytes Percent Auto 34.7 % (25-40); Mean Corpuscular HGB Conc 34.2 % (30-36); Mean Corpuscular Hemoglobin 31.4 PG (26-34); Mean Corpuscular Volume 91.6 fL (80-100); Monocytes Absolute Auto 500 /uL (0-900); Monocytes Percent Auto 11.3 % (3-14); Neutrophils Absolute Auto 2300 /uL (1500-7000); Neutrophils Percent Auto 49.4 % (50-75); Platelet Count 279 X10^3/uL (150-400); Red Blood Cell Count 4.02 X10^6/uL (4.0-5.2); Red Cell Distribution Width 12.5 % (11.6-14.8); White Blood Cell Count 4.6 X10^3/uL (4.5-11.0)
[2022-04-05 23:37] LABS: Alanine Aminotransferase 16 IU/L (<35); Albumin 3.8 g/dL (3.5-5.0); Albumin Globulin Ratio 1.4 (1.0-2.8); Alkaline Phosphatase 67 U/L (38-126); Aspartate Aminotransferase 21 IU/L (14-36); BUN Creatinine Ratio 20.5 (6-22); Bilirubin Total 0.2 mg/dL (0.2-1.3); Blood Urea Nitrogen 18 mg/dL (7-17); Calcium 8.4 mg/dL (8.4-10.2); Carbon Dioxide 22 mmol/L (22-32); Chloride 107 mmol/L (98-107); Creatine Kinase 54 U/L (30-135); Estimated Glomerular Filt Rate > 60 mL/min (>60); Globulin 2.8 g/dL (1.7-4.1); Glucose 111 mg/dL (70-100); HEMOLYSIS 15 (0-50); Lipase 117 U/L (23-300); Potassium 3.8 mmol/L (3.4-5.1); Sodium 138 mmol/L (137-145); Total Protein 6.6 g/dL (6.3-8.2)
[2022-04-05 23:47] VITALS: BP 110/63; PULSE 73; RESP 16; O2SAT 100
[2022-04-05 23:48] LABS: Troponin I < 0.012 ng/mL (0.01-0.034)
[2022-04-05] MEDS: METOPROLOL IR 25 MG TABLET 12.5 MG PO (23:50)
[2022-04-05 23:54] LABS: D Dimer 297 ng/ml (<500)
[2022-04-06 00:32] VITALS: BP 116/74; PULSE 73; RESP 16; O2SAT 100
== END 2022-04-06 00:34 | disposition home or self-care (01) ==
PROVIDERS: Emergency Provider Emergency Medicine; Family Provider Physician Assistant; PCP Physician Assistant
DX: I49.1 Atrial premature depolarization (principal)
CPT/HCPCS: 36415; 71045; 80053; 82550; 83690; 83735; 84484; 85025; 85379; 93005; 93010; 99284

== ENCOUNTER 2022-08-19 08:48 | Emergency (ER) | payer OTHER, MEDICAID, SELFPAY ==
[2022-08-19 08:52] VITALS: BP 113/87; PULSE 92; RESP 18; O2SAT 99; BMI 22.4
[2022-08-19] MEDS: HYDROMORPHONE 1 MG INJ IV (08:56)
[2022-08-19] MEDS: ONDANSETRON 4 MG/2 ML INJ IV (08:56)
--- NOTE | 2022-08-19 08:59 | ED.BACK ---
HPI - Back Pain/Injury General Chief Complaint: Back Pain/Injury Stated Complaint: Back Pain Time Seen by Provider: 08/19/22 08:50 Source: patient and EMS History of Present Illness HPI Narrative: Patient brought in by ambulance for complaints of right back pain radiating to her small toes on the right side. No new injury. Onset of pain started this morning. Patient states June 26, 2022 a 200 lb man fell on top of her. She strain her neck and her back. She is been seen chiropractic services which seem to give some relief. No MRI done. No physical therapy. Patient denies any injury or new stressors on her back in the past 24 hours. No bowel or bladder incontinence no saddle paresthesia. Patient given fentanyl by EMS prior to arrival. No improvement with pain. Patient denies does not want a test. No history of kidney stones. Patient has had this pain distribution in the past. This is not new.. Patient has had back pain in the past. Review of medical records does show back injury/back pain visits but not on our ER records. It is listed as her problem list/medical history No previous surgery or MRI on her back Related Data Home Medications Medication Instructions Recorded Confirmed ibuprofen 800 mg tablet 800 mg PO TIDP PRN Pain (Scale 09/14/20 10/27/20 Score 1-3) metoclopramide HCl 10 mg tablet 10 mg PO AC PRN Nausea 09/14/20 10/27/20 quetiapine 50 mg tablet 50 mg PO QPM 09/14/20 10/27/20 trazodone 100 mg tablet 100 mg PO BEDTIME PRN Insomnia 09/14/20 10/27/20 clonidine HCl 0.1 mg tablet 0.1 mg PO BID PRN Anxiety 10/27/20 10/27/20 methylphenidate HCl 5 mg tablet 15 mg PO DAILY 10/27/20 10/27/20 Previous Rx's Medication Instructions Recorded metoprolol tartrate 25 mg tablet 12.5 mg PO BID PRN frequent 04/06/22 palpitations #30 tabs baclofen 20 mg tablet 20 mg PO TID PRN pain (scale score 08/19/22 4-6) #20 tabs Allergies Allergy/AdvReac Type Severity Reaction Status Date / Time amoxicillin Allergy Intermediate ITCHY RASH Verified 03/31/22 14:29 kiwi [KIWI] Allergy Intermediate mouth Verified 03/31/22 14:29 hurt/swelling ketorolac Allergy Verified 08/19/22 09:38 citalopram AdvReac Severe PSYCHOSIS Verified 03/31/22 14:29 fluoxetine AdvReac Severe PSYCHOSIS Verified 03/31/22 14:29 Pain contract Allergy Unknown Uncoded 03/31/22 14:29 Review of Systems Review of Systems Narrative: GENERAL: negative chills, fatigue, malaise, fever, sweats. HEENT: negative sinus pain, ear pain, sore throat RESPIRATORY: negative dyspnea, cough CARDIOVASCULAR: negative chest pain, palpitations GASTROINTESTINAL: negative nausea, vomiting, abdominal pain : negative dysuria, frequency, hematuria MUSCULOSKELETAL: Positive muscle or bony pain, positive back pain SKIN: negative rash, skin lesions NEUROLOGIC: negative weakness, numbness, negative bowel or bladder incontinence or retention ROS Unobtainable: All systems reviewed & are unremarkable except as noted in HPI and below Patient History Medical History (Updated 08/19/22 @ 10:02 by Alvino Joshi MD) Abdominal pain Acute exacerbation of chronic low back pain Affective disorder Annular tear of lumbar disc (09/12/15) Arthralgia Bilateral carpal tunnel syndrome Bipolar affective disorder, current episode depressed Chronic low back pain without sciatica (10/08/15) Chronic narcotic use (10/08/15) Diverticulitis Diverticulosis of intestine (09/05/13) Irritable bowel syndrome (09/05/13) Kidney stone Left conjunctivitis Marital conflict involving estrangement Parenting stress Peripheral neuropathy PTSD (post-traumatic stress disorder) Right wrist sprain Sciatica Sprain of right wrist, subsequent encounter (10/08/15) Tobacco use disorder Uncomplicated opioid dependence (01/23/16) Surgical History Status post tubal ligation Family History Mother Osteoarthritis of cervical spine, unspecified spinal osteoarthritis complication status Social History Smoking Status: Current every day smoker Smoking Status: Current every day smoker tobacco type: vaping alcohol intake frequency: 0-2 drinks per day Substance Use Type: marijuana Exam Narrative Exam Narrative: GENERAL: in no distress, not toxic not dyspneic HEAD: Normocephalic. EYES: Pupils equal round ENT: Mucous membranes moist. NECK: Trachea midline. CARDIOVASCULAR: Regular rate and rhythm without murmurs RESPIRATORY: Clear to auscultation. Breath sounds equal bilaterally. No wheezes, rales, or rhonchi. GASTROINTESTINAL: Abdomen soft, non-tender EXTREMITIES: No gross deformities. BACK: No flank tenderness. Reproducible right lower paralumbar muscle tenderness. Limited range of motion due to the pain. Patient able to stand up or sit up in bed at this time. Exam on supine position. She went sock removed. Light to check to foot and toes. Able to flex and extend at the ankle/strong strength, patellar reflex on the right intact. Limited flexion-extension of the knee and hip due to pain. Patient prefers to for her hip and knee flexed. Increase pain on the right with straight leg raise at 20?. There is tenderness touch to the right lower paralumbar muscles. With spasm. No midline tenderness or step-off. Patient able to log roll to the left. Increased pain with attempts to do sit up from supine position. NEURO: AOx4. Light touch intact foot and toes. Strong ankle flexion-extension as well as patellar reflex on the right. SKIN: Warm and dry PSYCH: Not anxious, is cooperative Initial Vital Signs Initial Vital Signs: Vital Signs Pulse Rate 92 H 08/19/22 08:52 Respiratory Rate 18 08/19/22 08:52 Blood Pressure 113/87 08/19/22 08:52 Pulse Oximetry 99 08/19/22 08:52 Oxygen Delivery Method 08/19/22 08:52 Course Orders Ordered: ED Orders 08/19/22 09:06 CT lumbar spine wo con Stat Discontinued Medications Dexamethasone (Dexamethasone 10 Mg/Ml Vial) 10 mg IV NOW ONE Stop: 08/19/22 10:01 Last Admin: 08/19/22 10:04 Dose: 10 mg Documented By: KLS Diazepam (Diazepam 5 Mg Tablet) 10 mg PO NOW ONE Stop: 08/19/22 09:30 Last Admin: 08/19/22 09:38 Dose: 10 mg Documented By: RLS Hydromorphone HCl (Hydromorphone 1 Mg Inj) 1 mg IV NOW ONE Stop: 08/19/22 08:51 Last Admin: 08/19/22 08:56 Dose: 1 mg Documented By: NR Ondansetron HCl (Ondansetron 4 Mg/2 Ml Inj) 4 mg IV NOW ONE Stop: 08/19/22 08:51 Last Admin: 08/19/22 08:56 Dose: 4 mg Documented By: NR Vital Signs Vital signs: Vital Signs - 8 hr 08/19/22 08:52 08/19/22 09:28 08/19/22 09:30 Pulse Rate 92 H 91 H Respiratory Rate 18 20 Blood Pressure 113/87 107/76 Pulse Oximetry 99 99 Oxygen Delivery Method Room Air 08/19/22 09:30 08/19/22 10:00 08/19/22 10:06 Pulse Rate 95 H 85 79 Respiratory Rate Blood Pressure Pulse Oximetry 99 100 100 Oxygen Delivery Method Room Air 08/19/22 10:07 Pulse Rate Respiratory Rate 16 Blood Pressure 121/97 H Pulse Oximetry Oxygen Delivery Method MDM - Back Pain/Injury Imaging Data CT lumbar spine: Radiologist's Impression: [address] [address] [address] Scan Report Signed Patient: Teresa Gold MR#: [id number] : 1980 Acct:[id number] Age/Sex: 41 / F Date of Service: 08/19/22 Loc: ED Accession Number: [id number] ?? Procedure: CT lumbar spine wo con Ordering Provider: Alvino Joshi MD PROCEDURE:? CT LUMBAR SPINE WO CON ? INDICATIONS:? Right back pain ? TECHNIQUE:? Noncontrast 3 mm thick sections acquired from the T12 level to the sacrum.? Sagittal and coronal reformats were constructed.? For radiation dose reduction, the following was used:? automated exposure control.? ? COMPARISON:? None. ? FINDINGS:? Image quality:? Excellent.? ? Bones:? There is normal bony alignment.? No acute vertebral body compression fractures.? No suspicious lytic or blastic bony lesions.? No pars defects.? Benign-appearing lucent density within the left superior sacrum with a rim of surrounding sclerosis measuring 10 mm. ? Soft tissues:? No retroperitoneal masses or hematomas.? Visualized aorta is normal in caliber.? Nonobstructing right interpolar renal calculus measuring 5 mm diameter.? Multiple nonobstructing calculi within the i left kidney, largest of which is in the superior pole measuring 3 mm.? Visualized portions of the appendix are within normal limits.? ? ? IMPRESSION:? 1. No fracture.? No acute/emergent process. 2. Nonobstructing bilateral renal calculi. ? ? Dictated by: Isidro Lloyd M.D. on 08/19/2022 at 9:27 ? ? Approved by: Isidro Lloyd M.D. on 08/19/2022 at 9:29 ? [facility] Narrative Medical decision making narrative: Patient brought in by ambulance for complaints of right back pain radiating to her small toes on the right side. No new injury. Onset of pain started this morning. Patient states June 26, 2022 a 200 lb man fell on top of her. She strain her neck and her back. She is been seen chiropractic services which seem to give some relief. No MRI done. No physical therapy. Patient denies any injury or new stressors on her back in the past 24 hours. No bowel or bladder incontinence no saddle paresthesia. Patient given fentanyl by EMS prior to arrival. No improvement with pain. Patient denies does not want a test. No history of kidney stones. Patient has had this pain distribution in the past. This is not new.. Patient has had back pain in the past. Review of medical records does show back injury/back pain visits but not on our ER records. It is listed as her problem list/medical history No previous surgeries or MRI on her back After history and exam Dilaudid Zofran CT lumbar spine ordered [facility] CC: Right back pain Complicating co-morbidities: History of chronic back pain Data collected from: Patient and EMS Medical records reviewed: No previous visits here for back pain. Differential considered: Includes but not limited to sciatica cord compression bulge disc herniated disc kidney stone/muscle spasm Exam documented above, pertinent findings include: Painful and limited range of motion at right lower back Imaging studies independently reviewed: CT lumbar spine no acute process Treatments: Dilaudid/Valium/Decadron Re-evaluations: 10:05 a.m.. Patient feeling better with medications provided. Return precautions reviewed with her. Reviewed CT imaging with her. Referral for ortho spine given. She understands she will need outpatient MRI. She does not need a work note. Currently not working. Encouraged her to hold on any further chiropractic services. She desires crutches for ambulation. 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 Return precautions reviewed with her. Neurologically intact at this time. Discussion: Appropriate for discharge home. Exam otherwise reassuring. No neuro deficits. CT imaging is reassuring. Referral for ortho spine given. Pain is controlled. Patient has truck driver helper. Patient will need further evaluation outpatient by ortho spine and possible MRI. She desires discharge home. Return precautions reviewed with her. Diagnosis: Right-sided back pain with sciatica Discharge Plan Departure Patient Disposition: Home Clinical Impression: Acute back pain with sciatica Instructions: DI for Back Pain With Sciatica Activity Restrictions/Additional Instructions: No driving operating machinery today. Or when taking prescribed medication for your back pain. Please pick these prescriptions up today at your [facility] pharmacy. Please call provided ortho spine provider to make appointment for re-evaluation and MRI of your lower back. Return if worse if any questions or concerns. You may use provided crutches as needed for ambulation. Prescriptions: New baclofen 20 mg tablet 20 mg PO TID PRN (Reason: pain (scale score 4-6)) Qty: 20 0RF No Action metoprolol tartrate 25 mg tablet 12.5 mg PO BID PRN (Reason: frequent palpitations) Qty: 30 0RF trazodone 100 mg tablet 100 mg PO BEDTIME PRN (Reason: Insomnia) metoclopramide HCl 10 mg tablet 10 mg PO AC PRN (Reason: Nausea) quetiapine 50 mg tablet 50 mg PO QPM ibuprofen 800 MG tablet 800 mg PO TIDP PRN (Reason: Pain (Scale Score 1-3)) methylphenidate HCl 5 mg tablet 15 mg PO DAILY Rx Instructions: total dose 15 mg - takes in 5 mg incraments. clonidine HCl 0.1 mg tablet 0.1 mg PO BID PRN (Reason: Anxiety) Referrals: Ngozi Diane PA-C [Primary Care Provider] - Daksha Lantigua MD [Physician] - Stand Alone Forms: Patient Portal/API
--- NOTE | 2022-08-19 09:06 | DI.CT.S_ITS ---
PROCEDURE: CT LUMBAR SPINE WO CON INDICATIONS: Right back pain TECHNIQUE: Noncontrast 3 mm thick sections acquired from the T12 level to the sacrum. Sagittal and coronal reformats were constructed. For radiation dose reduction, the following was used: automated exposure control. COMPARISON: None. FINDINGS: Image quality: Excellent. Bones: There is normal bony alignment. No acute vertebral body compression fractures. No suspicious lytic or blastic bony lesions. No pars defects. Benign-appearing lucent density within the left superior sacrum with a rim of surrounding sclerosis measuring 10 mm. Soft tissues: No retroperitoneal masses or hematomas. Visualized aorta is normal in caliber. Nonobstructing right interpolar renal calculus measuring 5 mm diameter. Multiple nonobstructing calculi within the i left kidney, largest of which is in the superior pole measuring 3 mm. Visualized portions of the appendix are within normal limits. IMPRESSION: 1. No fracture. No acute/emergent process. 2. Nonobstructing bilateral renal calculi. Dictated by: Isidro Lloyd M.D. on 08/19/2022 at 9:27 Approved by: Isidro Lloyd M.D. on 08/19/2022 at 9:29
[2022-08-19 09:28] VITALS: PULSE 91; O2SAT 99
[2022-08-19 09:30] VITALS: BP 107/76; PULSE 95; RESP 20; O2SAT 99
[2022-08-19] MEDS: diazePAM 5 MG TABLET 10 MG PO (09:38)
[2022-08-19 10:00] VITALS: PULSE 85; O2SAT 100
[2022-08-19] MEDS: DEXAMETHASONE 10 MG/ML VIAL IV (10:04)
[2022-08-19 10:06] VITALS: PULSE 79; O2SAT 100
[2022-08-19 10:07] VITALS: BP 121/97; RESP 16
== END 2022-08-19 10:29 | disposition home or self-care (01) ==
PROVIDERS: Emergency Provider Emergency Medicine; Family Provider Physician Assistant; PCP Physician Assistant
DX: M54.41 Lumbago with sciatica, right side (principal)
CPT/HCPCS: 72131; 96374; 96375; 99284; J1100; J1170; J2405

== ENCOUNTER 2023-08-06 14:22 | Inpatient (IN) | payer OTHER, MEDICAID, SELFPAY ==
[2023-08-06 14:36] VITALS: BP 126/76; PULSE 110; RESP 20; TEMP 37.2; O2SAT 99; BMI 23.1
[2023-08-06] MEDS: ONDANSETRON 4 MG/2 ML INJ IV ×2 (15:07→17:36)
[2023-08-06 15:20] LABS: Add Manual Diff / Slide Review NO; Basophils Absolute Auto 0 /uL (0-100); Basophils Percent Auto 0.2 % (0-2); Eosinophils Absolute Auto 100 /uL (0-450); Eosinophils Percent Auto 0.4 % (2-4); Hematocrit 36.9 % (36-46); Hemoglobin 12.4 g/dL (12.0-16.0); Lymphocytes Absolute Auto 1100 /uL (1100-4500); Lymphocytes Percent Auto 6.3 % (25-40); Mean Corpuscular HGB Conc 33.6 % (30-36); Mean Corpuscular Hemoglobin 30.8 PG (26-34); Mean Corpuscular Volume 91.5 fL (80-100); Monocytes Absolute Auto 900 /uL (0-900); Monocytes Percent Auto 5.4 % (3-14); Neutrophils Absolute Auto 14700 /uL (1500-7000); Neutrophils Percent Auto 87.7 % (50-75); Platelet Count 316 X10^3/uL (150-400); Red Blood Cell Count 4.03 X10^6/uL (4.0-5.2); Red Cell Distribution Width 12.9 % (11.6-14.8); White Blood Cell Count 16.8 X10^3/uL (4.5-11.0)
[2023-08-06 15:32] LABS: Alanine Aminotransferase 18 IU/L (<35); Albumin 4.5 g/dL (3.5-5.0); Albumin Globulin Ratio 1.3 (1.0-2.8); Alkaline Phosphatase 83 U/L (38-126); Aspartate Aminotransferase 27 IU/L (14-36); BUN Creatinine Ratio 21.1 (6-22); Blood Urea Nitrogen 15 mg/dL (7-17); Carbon Dioxide 23 mmol/L (22-32); Chloride 100 mmol/L (98-107); Estimated Glomerular Filt Rate > 60 mL/min (>60); Globulin 3.4 g/dL (1.7-4.1); Glucose 98 mg/dL (70-100); HEMOLYSIS < 15 (0-50); Lipase 40 U/L (23-300); Potassium 3.6 mmol/L (3.4-5.1); Sodium 135 mmol/L (137-145); Total Protein 7.9 g/dL (6.3-8.2)
--- NOTE | 2023-08-06 15:38 | ED_ITS ---
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 Patient complains 5 days abdominal pain. No fever chills. Pain worse with movement. History of diverticulitis and states feels the same. No urinary complaints. Hurts more with movement. Hurts with bowel movements as well. Or passing gas. Related Data Home Medications Medication Instructions Recorded Confirmed acyclovir 400 mg tablet 400 mg PO DAILY 08/06/23 08/06/23 dextroamphetamine-amphetamine ER 50 mg PO QAM 08/06/23 08/06/23 25 mg 24hr capsule,extend release eszopiclone 2 mg tablet 2 mg PO ONCE PM PRN insomnia 08/06/23 08/06/23 lamotrigine 100 mg tablet 100 mg PO DAILY 08/06/23 08/06/23 Previous Rx's Medication Instructions Recorded oxycodone 5 mg tablet 5 mg PO Q6H PRN pain #20 tabs 08/09/23 Allergies Allergy/AdvReac Type Severity Reaction Status Date / Time amoxicillin Allergy Intermediate ITCHY RASH Verified 08/07/23 14:21 kiwi [KIWI] Allergy Intermediate mouth Verified 08/06/23 14:44 hurt/swelling ketorolac Allergy Verified 08/06/23 14:44 citalopram AdvReac Severe PSYCHOSIS Verified 08/06/23 14:44 fluoxetine AdvReac Severe PSYCHOSIS Verified 08/06/23 14:44 Pain contract Allergy Unknown Uncoded 08/06/23 14:44 Review of Systems Review of Systems Narrative: GENERAL: negative chills, fatigue, malaise, fever, sweats. HEENT: negative sinus pain, ear pain, sore throat RESPIRATORY: negative dyspnea, cough CARDIOVASCULAR: negative chest pain, palpitations GASTROINTESTINAL: negative nausea, vomiting, Positiveabdominal pain : negative dysuria, frequency, hematuria MUSCULOSKELETAL: negative muscle or bony pain SKIN: negative rash, skin lesions NEUROLOGIC: negative weakness, numbness ROS Unobtainable: All systems reviewed & are unremarkable except as noted in HPI and below Patient History Medical History Uncomplicated opioid dependence (01/23/16) Annular tear of lumbar disc (09/12/15) Sprain of right wrist, subsequent encounter (10/08/15) Chronic narcotic use (10/08/15) Chronic low back pain without sciatica (10/08/15) Diverticulosis of intestine (09/05/13) Irritable bowel syndrome (09/05/13) Tobacco use disorder Bipolar affective disorder, current episode depressed Abdominal pain Kidney stone Sciatica PTSD (post-traumatic stress disorder) Left conjunctivitis Parenting stress Marital conflict involving estrangement Affective disorder Diverticulitis Right wrist sprain Acute exacerbation of chronic low back pain Peripheral neuropathy Arthralgia Bilateral carpal tunnel syndrome Surgical History Status post tubal ligation Family History Mother Osteoarthritis of cervical spine, unspecified spinal osteoarthritis complication status Social History household members: family Smoking Status: Current every day smoker alcohol intake: current Smoking Status: Current every day smoker tobacco type: vaping alcohol intake frequency: 0-2 drinks per day Substance Use Type: marijuana Exam Narrative Exam Narrative: GENERAL: in no distress, not toxic not dyspneic HEAD: Normocephalic. EYES: Pupils equal round ENT: Mucous membranes moist. NECK: Trachea midline. CARDIOVASCULAR: Regular rate and rhythm RESPIRATORY: Clear to auscultation. Breath sounds equal bilaterally. No wheezes, rales, or rhonchi. GASTROINTESTINAL: Abdomen soft, Mild diffuse tenderness. No peritoneal signs. Bowel sounds are present. No CVA tenderness. No pain out of proportion to exam. EXTREMITIES: No gross deformities. BACK: No flank tenderness. NEURO: AOx4. SKIN: Warm and dry PSYCH: Not anxious, is cooperative Initial Vital Signs Initial Vital Signs: Vital Signs Temperature 99 F 08/06/23 14:36 Pulse Rate 110 H 08/06/23 14:36 Respiratory Rate 20 08/06/23 14:36 Blood Pressure 126/76 08/06/23 14:36 Pulse Oximetry 99 08/06/23 14:36 Oxygen Delivery Method Room Air 08/06/23 14:36 Course Orders Ordered: Discontinued Medications Acetaminophen (Acetaminophen 325 Mg Tablet) 650 mg PO Q6H PRN PRN Reason: Fever/Mild Pain (1-3) Last Admin: 08/07/23 14:50 Dose: 650 mg Documented By: RANDY Acyclovir (Acyclovir 400 Mg Tablet) 400 mg PO DAILY [facility] Last Admin: 08/09/23 10:53 Dose: 400 mg Documented By: Admin: 08/08/23 09:48 Dose: 400 mg Documented By: Admin: 08/07/23 14:33 Dose: Not Given Documented By: RANDY Diphenhydramine HCl (Diphenhydramine 25 Mg Tablet) 25 mg PO Q6HR PRN PRN Reason: Itching Last Admin: 08/07/23 23:03 Dose: 25 mg Documented By: JEREMIE Hydromorphone HCl (Hydromorphone 0.5 Mg Inj) 0.5 mg IV Q2H PRN PRN Reason: Pain, Severe (7-10) Last Admin: 08/09/23 04:23 Dose: 0.5 mg Documented By: Admin: 08/09/23 01:14 Dose: 0.5 mg Documented By: Admin: 08/08/23 22:11 Dose: 0.5 mg Documented By: Admin: 08/08/23 18:43 Dose: 0.5 mg Documented By: Admin: 08/08/23 14:39 Dose: 0.5 mg Documented By: Admin: 08/08/23 12:23 Dose: 0.5 mg Documented By: Admin: 08/08/23 09:42 Dose: 0.5 mg Documented By: Admin: 08/08/23 06:15 Dose: 0.5 mg Documented By: Admin: 08/07/23 23:18 Dose: 0.5 mg Documented By: Admin: 08/07/23 20:35 Dose: 0.5 mg Documented By: Admin: 08/07/23 18:11 Dose: 0.5 mg Documented By: Admin: 08/07/23 15:16 Dose: 0.5 mg Documented By: Admin: 08/07/23 11:38 Dose: 0.5 mg Documented By: Admin: 08/07/23 06:36 Dose: 0.5 mg Documented By: Admin: 08/07/23 05:05 Dose: 0.5 mg Documented By: Admin: 08/06/23 23:45 Dose: 0.5 mg Documented By: Admin: 08/06/23 21:03 Dose: 0.5 mg Documented By: JEREMIE Sodium Chloride (Normal Saline 0.9%) 1,000 mls @ 1,000 mls/hr IV BOLUS ONE Stop: 08/06/23 16:33 Last Infusion: 08/06/23 17:00 Dose: Infused Documented By: Admin: 08/06/23 16:12 Dose: 1,000 mls/hr Documented By: OW Dextrose/Sodium Chloride (Dextrose 5%-0.45% Ns) 1,000 mls @ 100 mls/hr IV CONT [facility] Last Admin: 08/07/23 06:01 Dose: 100 mls/hr Documented By: Infusion: 08/07/23 06:01 Dose: Infused Documented By: Admin: 08/06/23 21:02 Dose: 100 mls/hr Documented By: JEREMIE Piperacillin Sod/Tazobactam (Sod 3.375 gm/ Sodium Chloride) 100 mls @ 25 mls/hr IV Q8H [facility] Last Admin: 08/09/23 06:12 Dose: 25 mls/hr Documented By: Infusion: 08/09/23 04:29 Dose: Infused Documented By: Admin: 08/09/23 00:29 Dose: 25 mls/hr Documented By: Infusion: 08/08/23 19:34 Dose: Infused Documented By: Admin: 08/08/23 15:34 Dose: 25 mls/hr Documented By: Infusion: 08/08/23 10:14 Dose: Infused Documented By: Admin: 08/08/23 06:14 Dose: 25 mls/hr Documented By: Infusion: 08/08/23 03:21 Dose: Infused Documented By: Admin: 08/07/23 23:04 Dose: 25 mls/hr Documented By: Infusion: 08/07/23 20:31 Dose: Infused Documented By: Admin: 08/07/23 14:58 Dose: 25 mls/hr Documented By: Infusion: 08/07/23 10:49 Dose: Infused Documented By: Admin: 08/07/23 06:01 Dose: 25 mls/hr Documented By: Infusion: 08/07/23 03:04 Dose: Infused Documented By: Admin: 08/06/23 23:04 Dose: 25 mls/hr Documented By: JEREMIE Piperacillin Sod/Tazobactam (Sod 4.5 gm/ Sodium Chloride) 100 mls @ 200 mls/hr IV NOW ONE Stop: 08/06/23 19:29 Last Infusion: 08/07/23 07:02 Dose: Infused Documented By: Admin: 08/06/23 21:02 Dose: 200 mls/hr Documented By: JEREMIE Lamotrigine (Lamotrigine 100 Mg Tablet) 100 mg PO DAILY [facility] Last Admin: 08/09/23 10:53 Dose: 100 mg Documented By: Admin: 08/08/23 09:48 Dose: 100 mg Documented By: Admin: 08/07/23 14:35 Dose: 100 mg Documented By: RANDY Morphine Sulfate (Morphine 4 Mg/Ml Inj) 4 mg IV NOW ONE Stop: 08/06/23 15:35 Last Admin: 08/06/23 16:11 Dose: 4 mg Documented By: MILTON Morphine Sulfate (Morphine 4 Mg/Ml Inj) 4 mg IM NOW ONE Stop: 08/06/23 17:32 Last Admin: 08/06/23 17:36 Dose: 4 mg Documented By: MILTON Naloxone HCl (Naloxone 0.4 Mg/Ml Vial) 0.2 mg IV Q2MIN PRN PRN Reason: Opiate Reversal Nf - Dextroamphetamine- Amphetamine 25 Mg Er Capsule 50 mg PO DAILY [facility] Last Admin: 08/09/23 10:53 Dose: Not Given Documented By: Admin: 08/08/23 09:53 Dose: Not Given Documented By: EUFEMIA Ondansetron HCl (Ondansetron 4 Mg/2 Ml Inj) 4 mg IV NOW PRN PRN Reason: Nausea And Vomiting Last Admin: 08/07/23 06:01 Dose: 4 mg Documented By: Admin: 08/06/23 15:07 Dose: 4 mg Documented By: ANDERS Ondansetron HCl (Ondansetron 4 Mg Odt) 4 mg PO NOW PRN PRN Reason: Nausea And Vomiting Last Admin: 08/06/23 23:45 Dose: 4 mg Documented By: JEREMIE Ondansetron HCl (Ondansetron 4 Mg/2 Ml Inj) 4 mg IV NOW ONE Stop: 08/06/23 17:34 Last Admin: 08/06/23 17:36 Dose: 4 mg Documented By: MILTON Ondansetron HCl (Ondansetron 4 Mg/2 Ml Inj) 4 mg IV Q4H PRN PRN Reason: Nausea And Vomiting Last Admin: 08/07/23 21:52 Dose: 4 mg Documented By: JEREMIE Ondansetron HCl (Ondansetron 4 Mg Odt) 4 mg PO Q4HR [facility] Last Admin: 08/09/23 10:53 Dose: Not Given Documented By: Admin: 08/09/23 04:23 Dose: 4 mg Documented By: Admin: 08/09/23 01:15 Dose: 4 mg Documented By: Admin: 08/08/23 22:11 Dose: 4 mg Documented By: Admin: 08/08/23 18:43 Dose: 4 mg Documented By: Admin: 08/08/23 14:40 Dose: 4 mg Documented By: Admin: 08/08/23 09:52 Dose: Not Given Documented By: Admin: 08/08/23 04:59 Dose: Not Given Documented By: Admin: 08/08/23 00:35 Dose: Not Given Documented By: JEREMIE Oxycodone HCl (Oxycodone Ir 5 Mg Tablet) 5 mg PO Q4HR PRN PRN Reason: Pain, Moderate (4-6) Last Admin: 08/09/23 12:01 Dose: 5 mg Documented By: Admin: 08/09/23 06:18 Dose: 5 mg Documented By: Admin: 08/08/23 20:28 Dose: 5 mg Documented By: Admin: 08/08/23 15:33 Dose: 5 mg Documented By: EUFEMIA Polyethylene Glycol (Polyethylene Glycol 3350 17 Gm Powd.Pack) 17 gm PO DAILY [facility] Last Admin: 08/09/23 10:54 Dose: Not Given Documented By: Admin: 08/08/23 09:49 Dose: 17 gm Documented By: Admin: 08/07/23 14:35 Dose: 17 gm Documented By: RANDY Sennosides (Sennosides 8.6 Mg Tablet) 8.6 mg PO BID PRN PRN Reason: Constipation Sennosides (Sennosides 8.6 Mg Tablet) 8.6 mg PO BID [facility] Last Admin: 08/09/23 10:54 Dose: Not Given Documented By: Admin: 08/08/23 20:26 Dose: Not Given Documented By: Admin: 08/08/23 14:40 Dose: 8.6 mg Documented By: EUFEMIA Vital Signs Vital signs: Vital Signs - 8 hr 08/06/23 14:36 08/06/23 17:47 08/06/23 18:01 Temperature 99 F 99 F 99.9 F H Pulse Rate 110 H 123 H 112 H Respiratory Rate 20 28 H 20 Blood Pressure 126/76 149/76 H 135/69 Pulse Oximetry 99 100 98 Oxygen Delivery Method Room Air Room Air Room Air MDM - Abdominal Pain Lab Data 08/08/23 06:00 08/08/23 06:00 Labs: Lab Results 08/06/23 08/07/23 08/08/23 Range/Units 15:00 06:20 06:00 WBC 16.8 H 12.1 H 7.9 (4.5-11.0) X10^3/uL RBC 4.03 3.53 L 3.51 L (4.0-5.2) X10^6/uL Hgb 12.4 11.0 L 10.9 L (12.0-16.0) g/dL Hct 36.9 32.2 L 32.0 L (36-46) % MCV 91.5 91.2 91.3 (80-100) fL MCH 30.8 31.2 31.2 (26-34) PG MCHC 33.6 34.2 34.2 (30-36) % RDW 12.9 12.6 12.9 (11.6-14.8) % Plt Count 316 259 266 (150-400) X10^3/uL Neut % (Auto) 87.7 H (50-75) % Lymph % (Auto) 6.3 L (25-40) % [place] % (Auto) 5.4 (3-14) % Eos % (Auto) 0.4 L (2-4) % Baso % (Auto) 0.2 (0-2) % Neut # (Auto) 89170 H (5547-7833) /uL Lymph # (Auto) 1100 (2605-7294) /uL [place] # (Auto) 900 (0-900) /uL Eos # (Auto) 100 (0-450) /uL Baso # (Auto) 0 (0-100) /uL Sodium 135 L 134 L 137 (137-145) mmol/L Potassium 3.6 3.7 4.0 (3.4-5.1) mmol/L Chloride 100 103 104 (98-107) mmol/L Carbon Dioxide 23 23 25 (22-32) mmol/L BUN 15 8 8 (7-17) mg/dL Creatinine 0.71 0.71 0.69 (0.52-1.04) mg/dL Estimated GFR > 60 > 60 > 60 (>60) mL/min BUN/Creatinine Ratio 21.1 11.3 11.6 (6-22) Glucose 98 117 H 100 (70-100) mg/dL Lactate 0.8 (0.7-2.1) mmol/L Calcium 9.0 8.2 L 8.6 (8.4-10.2) mg/dL Total Bilirubin 1.0 0.8 0.5 (0.2-1.3) mg/dL AST 27 21 24 (14-36) IU/L ALT 18 14 17 (<35) IU/L Alkaline Phosphatase 83 75 86 (38-126) U/L Total Protein 7.9 6.3 6.5 (6.3-8.2) g/dL Albumin 4.5 3.3 L 3.3 L (3.5-5.0) g/dL Globulin 3.4 3.0 3.2 (1.7-4.1) g/dL Albumin/Globulin Ratio 1.3 1.1 1.0 (1.0-2.8) Lipase 40 (23-300) U/L Serum , Qual Negative (Negative) Point of care testing: Point of Care Testing Test Results Negative Urine Dip Bedside Urine Glucose Negative Bedside Urine Bilirubin - Negative Bedside Urine Ketone +/- 5 Urine Specific [place] 1.010 Bedside Urine Occult Blood - Negative Bedside Urine pH 6.5 Bedside Urine Protein - Negative Bedside Urine Urobilinogen - Negative Bedside Urine Leukocytes - Negative Esterase Imaging Data CT scan - abdomen/pelvis: Radiologist's Impression: [address] [address] [address] Scan Report Signed Patient: Teresa Gold MR#: [id number] : 1980 Acct:[id number] Age/Sex: 42 / F Date of Service: 08/06/23 Loc: ED Accession Number: [id number] Procedure: CT abdomen pelvis w con Ordering Provider: Alvino Joshi MD PROCEDURE: CT ABDOMEN PELVIS W CON INDICATIONS: IV contrast only/abdominal pain TECHNIQUE: After the administration of intravenous contrast, axial sections acquired from the lung bases to the pubic symphysis. Coronal and sagittal reformats were performed. For radiation dose reduction, the following was used: automated exposure control, adjustment of mA and/or kV according to patient size. COMPARISON: [facility], CT, CT ABDOMEN PELVIS WITH CONTRAST, 04/17/2020, 13:51. FINDINGS: Image quality: Diagnostic. Lower Chest: No significant findings. ABDOMEN: Liver: No solid mass. Focal hepatic fatty infiltration adjacent to the falciform ligament. Gallbladder: No radiopaque gallstones or wall thickening. Biliary ducts: Mild intra and extrahepatic biliary tree dilatation with common bile duct measuring up to 1 point 4 centimeters. Pancreas: No ductal dilation. Spleen: Size is within normal limits. Adrenal Glands: No adrenal nodules. Kidneys and Ureters: No hydronephrosis. Multiple bilateral nonobstructing renal stones ranging in size from 2-6 millimeters. No solid mass. No complex renal cystic lesion which requires follow up. Stomach and Bowel: Normal colonic caliber, without significant wall thickening. No evidence of appendicitis. Multiple colonic diverticuli. Circumferential wall thickening inflammatory changes involving the sigmoid colon in the region of diverticuli compatible with diverticulitis. No alvina-diverticular abscess. Trace free fluid noted in the lower pelvis. Peritoneum: No free air. Ventral Wall: No significant ventral hernia. Abdominal Nodes: No retroperitoneal or mesenteric adenopathy by size criteria. Vessels: Aorta and inferior vena cava are normal in size. PELVIS: Pelvic Organs: Unremarkable. Bladder: No bladder wall thickening, accounting for underdistention. Pelvic Nodes: No enlarged lymph nodes. Miscellaneous: No inguinal hernias are seen. Bones: No aggressive osseous abnormality. IMPRESSION: Sigmoid colon diverticulitis. Biliary tree dilatation with common bile duct measuring up to 1.4 centimeters. Findings suspicious for biliary obstruction. Recommend correlation with clinical and laboratory data and if clinically indicated MRCP. Multiple bilateral nonobstructing renal stones. No hydronephrosis. 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 Patient complains 5 days abdominal pain. No fever chills. Pain worse with movement. History of diverticulitis and states feels the same. No urinary complaints. Hurts more with movement. Hurts with bowel movements as well. Or passing gas. After history and exam CBC CMP test morphine Zofran CT abdomen pelvis normal saline MDM CC: abdominal pain Complicating co-morbidities: history of diverticulosis Data collected from: patient Medical records reviewed: no recent visit for this complaint Differential considered: Includes but not limited to diverticulitis diverticulosis bowel obstruction appendicitis colitis cystitis pyelonephritis Exam documented above, pertinent findings include: tender abdomen Lab Test results independently reviewed as above. Pertinent findings: WBC 16.8 hemoglobin 12.4 sodium 135 GFR greater than 60 AST [address] abdomen pelvis Acute uncomplicated sigmoid diverticulitis, MRCP recommended for dilated common bile duct Treatments: morphine Zofran normal saline 6:10 p.m.. Spoke with General surgery, Dr. Gastelum, recommends observation overnight and start antibiotics, MRCP tomorrow repeat liver enzymes she will follow in consult 6:[address] Hough, hospitalist, who will see patient for admission and consult Dr Gastelum Re-evaluations: 6:20 p.m.. Reviewed with patient results and need for admission. Pain is stillPresent. She agrees for treatment plan. Discussion: appropriate for admission, IV antibiotics have been started. Pain control is needed. Reviewed with general surgery and hospitalist. MRCP tomorrow. Diagnosis: diverticulitis Discharge Plan Departure Patient Disposition: Admitted as Observation Clinical Impression: Diverticulitis Admit Date/Time: 08/08/23 15:01 Admit Provider: Omar Hough
[2023-08-06 15:56] LABS: Pregnancy Test Serum,Qual Negative (Negative)
[2023-08-06] MEDS: MORPHINE 4 MG/ML INJ IV (16:11)
[2023-08-06] MEDS: SODIUM CHLORIDE 0.9% 1,000 ML 1000 ML IV (16:12)
[2023-08-06] MEDS: MORPHINE 4 MG/ML INJ IM (17:36)
[2023-08-06 17:47] VITALS: BP 149/76; PULSE 123; RESP 28; TEMP 37.2; O2SAT 100
[2023-08-06 18:01] VITALS: BP 135/69; PULSE 112; RESP 20; TEMP 37.7; O2SAT 98
[2023-08-06 18:09] LABS: Lactate (Lactic Acid) 0.8 mmol/L (0.7-2.1)
--- NOTE | 2023-08-06 18:35 | P.HP_ITS ---
History of Present Illness History of Present Illness Date Patient Seen: 08/06/23 Time Patient Seen: 18:35 Chief complaint: severe abd pain Narrative: The patient is a 42-year-old female with a history of recurrent diverticulitis who presents with 3 days' history of intermittent left lower quadrant abdominal pain. She would fairly severe pain on Thursday which did not radiate. This then improved until this morning when she awoke with very severe left lower quadrant pain. The pain did not radiate, nothing made it better or worse. She was tender if she palpated her own abdomen. She denies recent constipation, diarrhea or blood per rectum. She has had some nausea and anorexia but denies vomiting. She also believes that she has had fevers. She presented to the emergency department where imaging confirmed diverticulitis. She was given IV fluids, and found to be tachycardic. She was also given analgesia with IV opiates which improved her symptoms. The possibility of surgical resection for recurrent diverticulitis has been brought up in the past. General surgery was consulted via the ED. She denies abdominal distention. No chest pain cough or shortness of breath. [facility] Medical History Uncomplicated opioid dependence (01/23/16) Annular tear of lumbar disc (09/12/15) Sprain of right wrist, subsequent encounter (10/08/15) Chronic narcotic use (10/08/15) Chronic low back pain without sciatica (10/08/15) Diverticulosis of intestine (09/05/13) Irritable bowel syndrome (09/05/13) Tobacco use disorder Bipolar affective disorder, current episode depressed Abdominal pain Kidney stone Sciatica PTSD (post-traumatic stress disorder) Left conjunctivitis Parenting stress Marital conflict involving estrangement Affective disorder Diverticulitis Right wrist sprain Acute exacerbation of chronic low back pain Peripheral neuropathy Arthralgia Bilateral carpal tunnel syndrome Surgical History Status post tubal ligation Family History Mother Osteoarthritis of cervical spine, unspecified spinal osteoarthritis complication status Social History Smoking Status: Current every day smoker Meds Home Medications and Allergies Home Medications Medication Instructions Recorded Confirmed Type ibuprofen 800 mg tablet 800 mg PO TIDP PRN Pain (Scale 09/14/20 10/27/20 History Score 1-3) metoclopramide HCl 10 mg tablet 10 mg PO AC PRN Nausea 09/14/20 10/27/20 History quetiapine 50 mg tablet 50 mg PO QPM 09/14/20 10/27/20 History trazodone 100 mg tablet 100 mg PO BEDTIME PRN Insomnia 09/14/20 10/27/20 History clonidine HCl 0.1 mg tablet 0.1 mg PO BID PRN Anxiety 10/27/20 10/27/20 History methylphenidate HCl 5 mg tablet 15 mg PO DAILY 10/27/20 10/27/20 History metoprolol tartrate 25 mg tablet 12.5 mg (1/2 x 25 mg) PO BID PRN 04/06/22 Rx frequent palpitations #30 tabs baclofen 20 mg tablet 20 mg PO TID PRN pain (scale score 08/19/22 Rx 4-6) #20 tabs Allergies Allergy/AdvReac Type Severity Reaction Status Date / Time amoxicillin Allergy Intermediate ITCHY RASH Verified 08/06/23 14:44 kiwi [KIWI] Allergy Intermediate mouth Verified 08/06/23 14:44 hurt/swelling ketorolac Allergy Verified 08/06/23 14:44 citalopram AdvReac Severe PSYCHOSIS Verified 08/06/23 14:44 fluoxetine AdvReac Severe PSYCHOSIS Verified 08/06/23 14:44 Pain contract Allergy Unknown Uncoded 08/06/23 14:44 Review of Systems Review of Systems Narrative: All else reviewed and otherwise unremarkable except as noted in history and physical. Exam Vital Signs (past 8 hours): - 08/06/23 14:36 08/06/23 17:47 08/06/23 18:01 Temperature 99 F 99 F 99.9 F H Pulse Rate 110 H 123 H 112 H Respiratory Rate 20 28 H 20 Blood Pressure 126/76 149/76 H 135/69 Pulse Oximetry 99 100 98 Oxygen Delivery Method Room Air Room Air Room Air Oxygen Delivery Method Room Air Narrative Exam Narrative: Mildly anxious, no acute distress. Fluent speech. Normocephalic skull, anicteric sclera, EOMI. Neck is supple, midline trachea, no adenopathy. Lungs are clear with normal rate and effort. Heart is regular without murmur gallop or rub, tachycardic. Abdomen is soft, non distended. There is some left lower quadrant tenderness without guarding or rebound. Extremities are free of edema, good radial pulses. She has some tattoos, skin is otherwise unremarkable. Joints are not swollen or deformed. Neurologically cranial nerves are intact motor strength is normal in all extremities. Objective Imaging CT scan - abdomen: Radiologist's impression: Sigmoid colon diverticulitis. Biliary tree dilatation with common bile duct measuring up to 1.4 centimeters. Findings suspicious for biliary obstruction. Recommend correlation with clinical and laboratory data and if clinically indicated MRCP. Multiple bilateral nonobstructing renal stones. No hydronephrosis. Labs 08/06/23 15:00 08/06/23 15:00 Labs: Laboratory Results - last 24 hr 08/06/23 15:00 WBC 16.8 H RBC 4.03 Hgb 12.4 Hct 36.9 MCV 91.5 MCH 30.8 MCHC 33.6 RDW 12.9 Plt Count 316 Neut % (Auto) 87.7 H Lymph % (Auto) 6.3 L [place] % (Auto) 5.4 Eos % (Auto) 0.4 L Baso % (Auto) 0.2 Neut # (Auto) 02884 H Lymph # (Auto) 1100 [place] # (Auto) 900 Eos # (Auto) 100 Baso # (Auto) 0 Sodium 135 L Potassium 3.6 Chloride 100 Carbon Dioxide 23 BUN 15 Creatinine 0.71 Estimated GFR > 60 BUN/Creatinine Ratio 21.1 Glucose 98 Lactate 0.8 Calcium 9.0 Total Bilirubin 1.0 AST 27 ALT 18 Alkaline Phosphatase 83 Total Protein 7.9 Albumin 4.5 Globulin 3.4 Albumin/Globulin Ratio 1.3 Lipase 40 Serum , Qual Negative Assessment & Plan Assessment & Plan narrative: 1. Sigmoid diverticulitis, present on admission and active. History of recurrent diverticulitis, this being the 3rd episode. 2. Sepsis with tachycardia, tachypnea, and leukocytosis as a result a sigmoid diverticulitis, present on admission and active. 3. Dilated common bile duct on imaging with normal liver function tests, present on admission and active. 4. Bipolar disorder, present on admission and stable. 5. PTSD, present on admission stable. 6. ADHD, present on admission stable. Plan: The patient will be admitted for IV fluids, bowel rest except for ice chips, antibiotics, as well as surgical consultation. We will follow up on her liver functions tomorrow and consider imaging of the bile duct him more detail if necessary. She is full resuscitation. Time Spent With Patient Time with patient: 30 to 49 minutes with 50% spent counseling/coordinating care Quality MIPS - Admit I confirm the patient?s Advance Care Plan is present, Code status is documented, Surrogate decision maker is in patient?s record [If Yes, STOP here]: Yes MIPS - Meds 'Current medications' to include all prescriptions, [id number] products, herbals, cannabis/cannabidiol products, and vitamin/mineral/dietary (nutritional) supplements. I have utilized all available resources to obtain, update, or review the patient?s current medications. [If Yes, STOP here]: Yes
[2023-08-06 18:44] VITALS: BMI 23.1
[2023-08-06 20:00] VITALS: BP 122/71; PULSE 114; RESP 18; TEMP 37.2; O2SAT 99
[2023-08-06] MEDS: DEXTROSE 5%-0.45% NS 1,000 ML 100 ML IV (21:02)
[2023-08-06] MEDS: PIPERACILLIN/TAZO 4.5 GM in SODIUM CHLORIDE 0.9% 100 ML IV (21:02)
[2023-08-06] MEDS: HYDROMORPHONE 0.5 MG INJ IV ×2 (21:03→23:45)
[2023-08-06] MEDS: PIPERACILLIN/TAZO 3.375 GM in SODIUM CHLORIDE 0.9% 100 ML IV (23:04)
[2023-08-06] MEDS: ONDANSETRON 4 MG ODT PO (23:45)
[2023-08-07 04:00] VITALS: BP 109/58; PULSE 99; RESP 16; TEMP 36.8; O2SAT 98
[2023-08-07] MEDS: HYDROMORPHONE 0.5 MG INJ IV ×7 (05:05→23:18)
[2023-08-07] MEDS: ONDANSETRON 4 MG/2 ML INJ IV ×2 (06:01→21:52)
[2023-08-07] MEDS: DEXTROSE 5%-0.45% NS 1,000 ML 100 ML IV (06:01)
[2023-08-07] MEDS: PIPERACILLIN/TAZO 3.375 GM in SODIUM CHLORIDE 0.9% 100 ML IV ×3 (06:01→23:04)
--- NOTE | 2023-08-07 07:27 | P.PN_ITS ---
Subjective Subjective Interval history: Admitted with recurrent diverticulitis. Her abdomen pain is slightly better today. She has right and left lower quadrant pain. She is some persistent nausea but is hungry. She spoke with Dr. Gastelum of surgery who said it is okay to start a diet. She has had a bowel movement. She is request stool softeners and resumption of normal medications. Exam Vital Signs (past 8 hours): - 08/07/23 04:00 Temperature 98.2 F Pulse Rate 99 H Respiratory Rate 16 Blood Pressure 109/58 L Pulse Oximetry 98 Oxygen Flow Rate 0 Oxygen Delivery Method Room Air Oxygen Flow Rate 0 Narrative Exam Narrative: NAD, calm and fluent speech. Lungs are clear with normal rate and effort. Heart is regular without murmur. Abdomen is tender in the right and left lower quadrants. There is no guarding or rebound. Legs are free of edema. Objective Imaging CT scan - abdomen: Radiologist's impression: Sigmoid colon diverticulitis. Biliary tree dilatation with common bile duct measuring up to 1.4 centimeters. Findings suspicious for biliary obstruction. Recommend correlation with clinical and laboratory data and if clinically indicated MRCP. Multiple bilateral nonobstructing renal stones. No hydronephrosis. Labs 08/07/23 06:20 08/07/23 06:20 Labs: Laboratory Results - last 24 hr 08/06/23 15:00 WBC 16.8 H RBC 4.03 Hgb 12.4 Hct 36.9 MCV 91.5 MCH 30.8 MCHC 33.6 RDW 12.9 Plt Count 316 Neut % (Auto) 87.7 H Lymph % (Auto) 6.3 L [place] % (Auto) 5.4 Eos % (Auto) 0.4 L Baso % (Auto) 0.2 Neut # (Auto) 80919 H Lymph # (Auto) 1100 [place] # (Auto) 900 Eos # (Auto) 100 Baso # (Auto) 0 Sodium 135 L Potassium 3.6 Chloride 100 Carbon Dioxide 23 BUN 15 Creatinine 0.71 Estimated GFR > 60 BUN/Creatinine Ratio 21.1 Glucose 98 Lactate 0.8 Calcium 9.0 Total Bilirubin 1.0 AST 27 ALT 18 Alkaline Phosphatase 83 Total Protein 7.9 Albumin 4.5 Globulin 3.4 Albumin/Globulin Ratio 1.3 Lipase 40 Serum , Qual Negative [facility] Medical History Uncomplicated opioid dependence (01/23/16) Annular tear of lumbar disc (09/12/15) Sprain of right wrist, subsequent encounter (10/08/15) Chronic narcotic use (10/08/15) Chronic low back pain without sciatica (10/08/15) Diverticulosis of intestine (09/05/13) Irritable bowel syndrome (09/05/13) Tobacco use disorder Bipolar affective disorder, current episode depressed Abdominal pain Kidney stone Sciatica PTSD (post-traumatic stress disorder) Left conjunctivitis Parenting stress Marital conflict involving estrangement Affective disorder Diverticulitis Right wrist sprain Acute exacerbation of chronic low back pain Peripheral neuropathy Arthralgia Bilateral carpal tunnel syndrome Surgical History Status post tubal ligation Family History Mother Osteoarthritis of cervical spine, unspecified spinal osteoarthritis complication status Social History household members: family Smoking Status: Current every day smoker alcohol intake: current Assessment & Plan Assessment & Plan narrative: 1. Sigmoid diverticulitis, present on admission and active. History of recurrent diverticulitis, this being the 3rd episode. 2. Sepsis with tachycardia, tachypnea, and leukocytosis as a result a sigmoid diverticulitis, present on admission and improved. 3. Dilated common bile duct on imaging with normal liver function tests, present on admission and active (stable). 4. Bipolar disorder, present on admission and stable. 5. PTSD, present on admission stable. 6. ADHD, present on admission stable. Plan: -continue IV antibiotics. -resume home medications including lamotrigine. -start MiraLax daily per her request. -advance diet to regular as recommended by surgery. She will require at least 1 more night of hospital level care for improvement of her symptoms. She is full resuscitation. Time Spent With Patient Time with patient: 30 to 49 minutes with 50% spent counseling/coordinating care Quality VTE Deep Vein Thrombosis/Pulmonary Embolism Present on Admission: No
[2023-08-07 07:29] LABS: Hematocrit 32.2 % (36-46); Mean Corpuscular HGB Conc 34.2 % (30-36); Mean Corpuscular Hemoglobin 31.2 PG (26-34); Mean Corpuscular Volume 91.2 fL (80-100); Platelet Count 259 X10^3/uL (150-400); Red Blood Cell Count 3.53 X10^6/uL (4.0-5.2); Red Cell Distribution Width 12.6 % (11.6-14.8); White Blood Cell Count 12.1 X10^3/uL (4.5-11.0)
[2023-08-07 07:50] LABS: Alanine Aminotransferase 14 IU/L (<35); Albumin 3.3 g/dL (3.5-5.0); Albumin Globulin Ratio 1.1 (1.0-2.8); Alkaline Phosphatase 75 U/L (38-126); Aspartate Aminotransferase 21 IU/L (14-36); BUN Creatinine Ratio 11.3 (6-22); Bilirubin Total 0.8 mg/dL (0.2-1.3); Blood Urea Nitrogen 8 mg/dL (7-17); Calcium 8.2 mg/dL (8.4-10.2); Carbon Dioxide 23 mmol/L (22-32); Chloride 103 mmol/L (98-107); Estimated Glomerular Filt Rate > 60 mL/min (>60); Glucose 117 mg/dL (70-100); HEMOLYSIS < 15 (0-50); Potassium 3.7 mmol/L (3.4-5.1); Sodium 134 mmol/L (137-145); Total Protein 6.3 g/dL (6.3-8.2)
--- NOTE | 2023-08-07 08:34 | PM.CALLCOV.1 ---
Call Coverage Note Note Date of Patient Contact: 08/07/23 Time of Patient Contact: 08:34 Narrative of Care Provided: Consult to follow. With regards to biliary dilation on CT scan. Likely patients normal, LFTs remain unchanged. No MRI needed
[2023-08-07 12:00] VITALS: BP 103/55; PULSE 97; RESP 22; TEMP 36.5; O2SAT 100
--- NOTE | 2023-08-07 12:20 | CM.DANOTE ---
Initial DCP Assessment Note Pt is a 42 yo female, resident of [place], comes in with complaint of persistent and severe abd pain, hx includes recurrent diverticulitis, surgery consulted PCP: Ngozi Diane Payer: Perez/ JOSE EDUARDO Reviewed chart, pt discussed in multidisciplinary rounds this morning. Attempted assessment x2 patient was off the floor for imaging and then was just returning, stated she was super thirsty. Initial assessment completed with information available on the chart. It appears patient lives in [place] w/her family, in an apt. PMH includes polysubstance use, Bipolar affective disorder, PTSD Patient appears to have some risk factors in her PMH that would warrant a bedside assessment when available. CM team following clinical course closely. ERICA Walls Discharge Planning/Care Management CM Discharge Assessment Start: 08/07/23 12:14 Freq: Status: Active Protocol: Document 08/07/23 12:14 ROBERT (Rec: 08/07/23 12:20 ROBERT [id number]) Discharge Planning Assessment Assigned Pipe Fitter Helper ERICA Christiansen DPOA/Assigned Designee Name mother Cr Contact Information [phone] Advance Directives? No History Provided By Patient,Medical Record Prior Living Arrangements House Household Members family Type of transporation used prior to Drives own vehicle admit Independent with ADL's Yes Is patient alert and oriented? Yes Comment Home Barriers to Discharge No Discharge Plan Home Transportation Arrangement Family
--- NOTE | 2023-08-07 12:50 | PM.CN ---
History of Present Illness Consult details Date Patient Seen: 08/07/23 Time Patient Seen: 12:50 Chief complaint: severe abd pain Reason for consult: recurrent diverticulitis Requesting provider: Omar Hough Narrative: Third episode of diverticulitis requiring hospitalization. Reports 2 flares since last episode 2 years ago. Had colonoscopy 3-5 years ago with polyp found. Now with improved abdominal pain. Meds Home Medications and Allergies Home Medications Medication Instructions Recorded Confirmed Type acyclovir 400 mg tablet 400 mg PO DAILY 08/06/23 08/06/23 History dextroamphetamine-amphetamine ER 50 mg PO QAM 08/06/23 08/06/23 History 25 mg 24hr capsule,extend release eszopiclone 2 mg tablet 2 mg PO ONCE PM PRN insomnia 08/06/23 08/06/23 History lamotrigine 100 mg tablet 100 mg PO DAILY 08/06/23 08/06/23 History Allergies Allergy/AdvReac Type Severity Reaction Status Date / Time amoxicillin Allergy Intermediate ITCHY RASH Verified 08/06/23 14:44 kiwi [KIWI] Allergy Intermediate mouth Verified 08/06/23 14:44 hurt/swelling ketorolac Allergy Verified 08/06/23 14:44 citalopram AdvReac Severe PSYCHOSIS Verified 08/06/23 14:44 fluoxetine AdvReac Severe PSYCHOSIS Verified 08/06/23 14:44 Pain contract Allergy Unknown Uncoded 08/06/23 14:44 Review of Systems Review of Systems ROS: Yes All systems reviewed with the patient and are negative except as otherwise documented Exam Vital Signs (past 8 hours): - 08/07/23 12:00 Temperature 97.7 F Pulse Rate 97 H Respiratory Rate 22 Blood Pressure 103/55 L Pulse Oximetry 100 Oxygen Flow Rate 0 Oxygen Delivery Method Room Air Oxygen Flow Rate 0 Const General: cooperative, healthy appearing and No acute distress HENMT Head: normocephalic and atraumatic Ears: hearing grossly normal bilaterally Other: several face piercings Eyes Sclera: sclerae normal Neck Neck: trachea midline and No JVD Resp Effort & Inspection: normal respiratory effort, able to speak in complete sentences and normal respiratory pattern Cardio Rate: tachycardic Rhythm: regular rhythm GI Palpation: soft and No tender (left > right tender to palpation) Skin General: elasticity normal and turgor normal Neuro General: patient alert, patient awake and patient oriented x3 Cranial Nerves: tongue midline Psych Mental Status: mental status grossly normal Attitude: cooperative Judgment: judgment good Objective Labs 08/07/23 06:20 08/07/23 06:20 Labs: Laboratory Results - last 24 hr 08/06/23 08/07/23 15:00 06:20 WBC 16.8 H 12.1 H RBC 4.03 3.53 L Hgb 12.4 11.0 L Hct 36.9 32.2 L MCV 91.5 91.2 MCH 30.8 31.2 MCHC 33.6 34.2 RDW 12.9 12.6 Plt Count 316 259 Neut % (Auto) 87.7 H Lymph % (Auto) 6.3 L [place] % (Auto) 5.4 Eos % (Auto) 0.4 L Baso % (Auto) 0.2 Neut # (Auto) 74248 H Lymph # (Auto) 1100 [place] # (Auto) 900 Eos # (Auto) 100 Baso # (Auto) 0 Sodium 135 L 134 L Potassium 3.6 3.7 Chloride 100 103 Carbon Dioxide 23 23 BUN 15 8 Creatinine 0.71 0.71 Estimated GFR > 60 > 60 BUN/Creatinine Ratio 21.1 11.3 Glucose 98 117 H Lactate 0.8 Calcium 9.0 8.2 L Total Bilirubin 1.0 0.8 AST 27 21 ALT 18 14 Alkaline Phosphatase 83 75 Total Protein 7.9 6.3 Albumin 4.5 3.3 L Globulin 3.4 3.0 Albumin/Globulin Ratio 1.3 1.1 Lipase 40 Serum , Qual Negative [facility] Medical History Uncomplicated opioid dependence (01/23/16) Annular tear of lumbar disc (09/12/15) Sprain of right wrist, subsequent encounter (10/08/15) Chronic narcotic use (10/08/15) Chronic low back pain without sciatica (10/08/15) Diverticulosis of intestine (09/05/13) Irritable bowel syndrome (09/05/13) Tobacco use disorder Bipolar affective disorder, current episode depressed Abdominal pain Kidney stone Sciatica PTSD (post-traumatic stress disorder) Left conjunctivitis Parenting stress Marital conflict involving estrangement Affective disorder Diverticulitis Right wrist sprain Acute exacerbation of chronic low back pain Peripheral neuropathy Arthralgia Bilateral carpal tunnel syndrome Surgical History Status post tubal ligation Family History Mother Osteoarthritis of cervical spine, unspecified spinal osteoarthritis complication status Social History household members: family Tobacco & Substance Use Smoking Status: Current every day smoker alcohol intake: current Assessment & Plan Assessment & Plan narrative: Recommend continued medical management with follow up Dr. Jackson to discuss repeat colonoscope and possible colon resection electively Time Spent With Patient Time with patient: less than 30 minutes
[2023-08-07] MEDS: lamoTRIgine 100 MG TABLET PO (14:35)
[2023-08-07] MEDS: polyethylene glycoL 3350 17 GM POWD.PACK PO (14:35)
[2023-08-07] MEDS: ACETAMINOPHEN 325 MG TABLET 650 MG PO (14:50)
[2023-08-07 20:00] VITALS: BP 103/60; PULSE 80; RESP 16; TEMP 35.9; O2SAT 99
[2023-08-07] MEDS: diphenhydrAMINE 25 MG TABLET PO (23:03)
[2023-08-08 04:00] VITALS: BP 110/55; PULSE 70; RESP 16; TEMP 35.8; O2SAT 99
[2023-08-08] MEDS: PIPERACILLIN/TAZO 3.375 GM in SODIUM CHLORIDE 0.9% 100 ML IV ×2 (06:14→15:34)
[2023-08-08] MEDS: HYDROMORPHONE 0.5 MG INJ IV ×6 (06:15→22:11)
[2023-08-08 06:38] LABS: Hemoglobin 10.9 g/dL (12.0-16.0); Mean Corpuscular HGB Conc 34.2 % (30-36); Mean Corpuscular Hemoglobin 31.2 PG (26-34); Mean Corpuscular Volume 91.3 fL (80-100); Platelet Count 266 X10^3/uL (150-400); Red Blood Cell Count 3.51 X10^6/uL (4.0-5.2); Red Cell Distribution Width 12.9 % (11.6-14.8); White Blood Cell Count 7.9 X10^3/uL (4.5-11.0)
[2023-08-08 06:41] LABS: Alanine Aminotransferase 17 IU/L (<35); Albumin 3.3 g/dL (3.5-5.0); Alkaline Phosphatase 86 U/L (38-126); Aspartate Aminotransferase 24 IU/L (14-36); BUN Creatinine Ratio 11.6 (6-22); Bilirubin Total 0.5 mg/dL (0.2-1.3); Blood Urea Nitrogen 8 mg/dL (7-17); Calcium 8.6 mg/dL (8.4-10.2); Carbon Dioxide 25 mmol/L (22-32); Chloride 104 mmol/L (98-107); Estimated Glomerular Filt Rate > 60 mL/min (>60); Globulin 3.2 g/dL (1.7-4.1); Glucose 100 mg/dL (70-100); HEMOLYSIS < 15 (0-50); Sodium 137 mmol/L (137-145); Total Protein 6.5 g/dL (6.3-8.2)
--- NOTE | 2023-08-08 09:47 | DI.US.S_ITS ---
PROCEDURE: US ABDOMEN LIMITED INDICATIONS: biliary dilation on CT TECHNIQUE: Real-time focused scanning was performed of the abdomen, with image documentation. COMPARISON: [facility], CT, CT ABDOMEN PELVIS W CON, 08/06/2023, 15:50. FINDINGS: The liver is prominent in size, with a likely Addy's lobe. The liver echogenicity is within normal limits. The main portal vein demonstrates normal size and demonstrates normal appearing, hepatopetal flow. No findings of gallstones or sludge are seen. The gallbladder wall is not thickened, measuring 3 mm or less. No specific pericholecystic fluid is seen. The sonographic Guido sign is negative. The common bile duct is enlarged, measuring 11 mm. No filling defects are seen within the common bile duct. The visualized pancreas is within normal limits. The right kidney demonstrates normal size. Right-sided kidney stones are seen, which are better demonstrated by CT. No free fluid is seen. The IVC is patent. IMPRESSION: The common bile duct is enlarged, measuring 11 mm. On these images, no cause of obstruction is seen. - If clinically appropriate, a follow-up MRCP could be considered for further evaluation (assuming that there is no contraindication to MRI). Additional findings: Kidney stones Dictated by: Jorge Bustamante M.D. on 08/08/2023 at 17:27 Approved by: Jorge Bustamante M.D. on 08/08/2023 at 17:31
[2023-08-08] MEDS: lamoTRIgine 100 MG TABLET PO (09:48)
[2023-08-08] MEDS: ACYCLOVIR 400 MG TABLET PO (09:48)
[2023-08-08] MEDS: polyethylene glycoL 3350 17 GM POWD.PACK PO (09:49)
[2023-08-08 11:56] VITALS: BP 117/55; PULSE 85; RESP 20; TEMP 36.6; O2SAT 100
[2023-08-08] MEDS: SENNOSIDES 8.6 MG TABLET PO (14:40)
[2023-08-08] MEDS: ONDANSETRON 4 MG ODT PO ×3 (14:40→22:11)
[2023-08-08] MEDS: OXYCODONE IR 5 MG TABLET PO ×2 (15:33→20:28)
--- NOTE | 2023-08-08 18:56 | PM.PN.1 ---
Subjective Subjective Interval history: Wants to have BM. Asking for laxatives. Still have LLQ abd pain. Able to tolerate diet today. Exam Vital Signs (past 8 hours): - 08/08/23 11:56 Temperature 97.8 F Pulse Rate 85 Respiratory Rate 20 Blood Pressure 117/55 L Pulse Oximetry 100 Oxygen Flow Rate 0 Oxygen Delivery Method Room Air Oxygen Flow Rate 0 Narrative Exam Narrative: NAD, calm and fluent speech. Lungs are clear with normal rate and effort. Heart is regular without murmur. Abdomen is tender in the right and left lower quadrants. There is no guarding or rebound. Legs are free of edema. Objective Labs 08/08/23 06:00 08/08/23 06:00 Labs: Laboratory Results - last 24 hr 08/08/23 06:00 WBC 7.9 RBC 3.51 L Hgb 10.9 L Hct 32.0 L MCV 91.3 MCH 31.2 MCHC 34.2 RDW 12.9 Plt Count 266 Sodium 137 Potassium 4.0 Chloride 104 Carbon Dioxide 25 BUN 8 Creatinine 0.69 Estimated GFR > 60 BUN/Creatinine Ratio 11.6 Glucose 100 Calcium 8.6 Total Bilirubin 0.5 AST 24 ALT 17 Alkaline Phosphatase 86 Total Protein 6.5 Albumin 3.3 L Globulin 3.2 Albumin/Globulin Ratio 1.0 [facility] Medical History Uncomplicated opioid dependence (01/23/16) Annular tear of lumbar disc (09/12/15) Sprain of right wrist, subsequent encounter (10/08/15) Chronic narcotic use (10/08/15) Chronic low back pain without sciatica (10/08/15) Diverticulosis of intestine (09/05/13) Irritable bowel syndrome (09/05/13) Tobacco use disorder Bipolar affective disorder, current episode depressed Abdominal pain Kidney stone Sciatica PTSD (post-traumatic stress disorder) Left conjunctivitis Parenting stress Marital conflict involving estrangement Affective disorder Diverticulitis Right wrist sprain Acute exacerbation of chronic low back pain Peripheral neuropathy Arthralgia Bilateral carpal tunnel syndrome Surgical History Status post tubal ligation Family History Mother Osteoarthritis of cervical spine, unspecified spinal osteoarthritis complication status Social History household members: family Smoking Status: Current every day smoker alcohol intake: current Assessment & Plan Assessment & Plan narrative: 1. Sigmoid diverticulitis, present on admission and active. History of recurrent diverticulitis, this being the 3rd episode. 2. Sepsis with tachycardia, tachypnea, and leukocytosis as a result a sigmoid diverticulitis, present on admission and improved. 3. Dilated common bile duct on imaging with normal liver function tests, present on admission and active (stable). Abd US with 11mm CBD, but patient notes history of this. 4. Bipolar disorder, present on admission and stable. 5. PTSD, present on admission stable. 6. ADHD, present on admission stable. Plan: -continue IV antibiotics. -resume home medications including lamotrigine. -start MiraLax daily per her request. Added senna. -advance diet to regular as recommended by surgery. She will require at least 1 more night of hospital level care for improvement of her symptoms. Dc home on 08/09. She is full resuscitation. Time Spent With Patient Time with patient: 30 to 49 minutes with 50% spent counseling/coordinating care Quality VTE Deep Vein Thrombosis/Pulmonary Embolism Present on Admission: No
[2023-08-08 19:00] VITALS: BP 125/77; PULSE 86; RESP 16; TEMP 36.5; O2SAT 96
[2023-08-09] MEDS: PIPERACILLIN/TAZO 3.375 GM in SODIUM CHLORIDE 0.9% 100 ML IV ×2 (00:29→06:12)
[2023-08-09] MEDS: HYDROMORPHONE 0.5 MG INJ IV ×2 (01:14→04:23)
[2023-08-09] MEDS: ONDANSETRON 4 MG ODT PO ×2 (01:15→04:23)
[2023-08-09 03:40] VITALS: BP 130/68; PULSE 88; RESP 17; TEMP 36.5; O2SAT 99
[2023-08-09] MEDS: OXYCODONE IR 5 MG TABLET PO ×2 (06:18→12:01)
[2023-08-09 08:00] VITALS: BP 106/56; PULSE 81; RESP 16; TEMP 36.6; O2SAT 97
[2023-08-09] MEDS: ACYCLOVIR 400 MG TABLET PO (10:53)
[2023-08-09] MEDS: lamoTRIgine 100 MG TABLET PO (10:53)
--- NOTE | 2023-08-09 12:06 | PM.DS.1 ---
History of Present Illness History of Present Illness Chief complaint: severe abd pain Narrative: The patient is a 42-year-old female with a history of recurrent diverticulitis who presents with 3 days' history of intermittent left lower quadrant abdominal pain. She would fairly severe pain on Thursday which did not radiate. This then improved until this morning when she awoke with very severe left lower quadrant pain. The pain did not radiate, nothing made it better or worse. She was tender if she palpated her own abdomen. She denies recent constipation, diarrhea or blood per rectum. She has had some nausea and anorexia but denies vomiting. She also believes that she has had fevers. She presented to the emergency department where imaging confirmed diverticulitis. She was given IV fluids, and found to be tachycardic. She was also given analgesia with IV opiates which improved her symptoms. The possibility of surgical resection for recurrent diverticulitis has been brought up in the past. General surgery was consulted via the ED. She denies abdominal distention. No chest pain cough or shortness of breath. Discharge Providers Provider Date of admission: 08/06/23 18:19 Discharge Date: 08/09/23 Primary care physician: Ngozi Diane PA-C Consults: 08/06/23 18:45 Consult to General Surgery Routine Comment: Consulting Provider: Melanie Gastelum Reason for consultation: diverticulitis Has provider been notified: Yes Discharge provider: Mann Chauhan DO Summary Hospital Course Discharge Diagnosis: 1. Sigmoid diverticulitis, present on admission and active. History of recurrent diverticulitis, this being the 3rd episode. 2. Sepsis with tachycardia, tachypnea, and leukocytosis as a result a sigmoid diverticulitis, present on admission and improved. 3. Dilated common bile duct on imaging with normal liver function tests, present on admission and active (stable). Abd US with 11mm CBD, but patient notes history of this. 4. Bipolar disorder, present on admission and stable. 5. PTSD, present on admission stable. 6. ADHD, present on admission stable. Hospital Course: Admitted for acute sigmoid diverticulitis. Improved with IV zosyn and IVF. Had incidental finding of dilated CBD on CT so abd US done which showed no evidence of biliary pathology other than dilated duct. Patient noted she has been told that before. Gen surg recommended outpatient colonoscopy at late date. Discharged home on 1 more week of cipro and flagyl. Exam Vital Signs (past 8 hours): - 08/09/23 08:00 Temperature 97.9 F Pulse Rate 81 Respiratory Rate 16 Blood Pressure 106/56 L Pulse Oximetry 97 Oxygen Delivery Method Room Air Oxygen Flow Rate 0 Narrative Exam Narrative: NAD, calm and fluent speech. Lungs are clear with normal rate and effort. Heart is regular without murmur. Abdomen is tender in the right and left lower quadrants but improving. There is no guarding or rebound. Legs are free of edema. Objective Labs 08/08/23 06:00 08/08/23 06:00 [facility] Medical History Uncomplicated opioid dependence (01/23/16) Annular tear of lumbar disc (09/12/15) Sprain of right wrist, subsequent encounter (10/08/15) Chronic narcotic use (10/08/15) Chronic low back pain without sciatica (10/08/15) Diverticulosis of intestine (09/05/13) Irritable bowel syndrome (09/05/13) Tobacco use disorder Bipolar affective disorder, current episode depressed Abdominal pain Kidney stone Sciatica PTSD (post-traumatic stress disorder) Left conjunctivitis Parenting stress Marital conflict involving estrangement Affective disorder Diverticulitis Right wrist sprain Acute exacerbation of chronic low back pain Peripheral neuropathy Arthralgia Bilateral carpal tunnel syndrome Surgical History Status post tubal ligation Family History Mother Osteoarthritis of cervical spine, unspecified spinal osteoarthritis complication status Social History household members: family Smoking Status: Current every day smoker alcohol intake: current Discharge Plan Discharge Plan Patient Disposition: Home Provider Discharge Comment: Please complete 7 days of oral antibiotics for your diverticulitis. Please follow-up with Dr. Jackson general surgery to get a colonoscopy. Discharge orders & Medications Prescriptions: New ciprofloxacin HCl [Cipro] 500 mg tablet 500 mg PO BID 7 Days Qty: 14 0RF Rx Instructions: start evening of 08/09 metronidazole 500 mg tablet 500 mg PO TID 7 Days Qty: 21 0RF Rx Instructions: start evening of 08/09 oxycodone 5 mg tablet 5 mg PO Q6H PRN (Reason: pain) Qty: 20 0RF Continued acyclovir 400 mg tablet 400 mg PO DAILY lamotrigine 100 mg tablet 100 mg PO DAILY dextroamphetamine-amphetamine 25 mg capsule,extended release 24hr 50 mg PO QAM eszopiclone 2 mg tablet 2 mg PO ONCE PM PRN (Reason: insomnia) Follow up/Referrals: Ngozi Diane PA-C [Primary Care Provider] - 2 Weeks Carmelo Jackson MD [Physician] - 2 Weeks Visit Report/Discharge Packet Stand Alone Forms: Patient Portal/API, Stroke Signs & Symptoms Discharge Data Primary Care Provider: Ngozi Diane I Attending Provider: Omar Hough Admit Date/Time: 08/06/23 18:19 Quality VTE Deep Vein Thrombosis/Pulmonary Embolism Present on Admission: No
--- NOTE | 2023-08-09 12:07 | CM.DPNOTE ---
DCP Note FASHION MERCHANDISER reviewed EMR. Per RN, pt had BM/is no longer constipated. Pt is calm/eager to dc home. Per provider, pt cleared to dc home. FASHION MERCHANDISER entered room and introduced self and role. Pt sitting in bed/moving around room. Accompanied by dtr at bedside. Pt eager to dc home, reports no CM needs. Plan: home today with dtr/family support. No CM needs identified. CM team will follow as needed. ERICA Boone
--- NOTE | 2023-08-09 13:10 | PC.NURSE ---
d/c teaching done with patient, daughter is at bedside. Patient states understanding of f/u with surg. in 2 weeks and to f/u with PCP. Patient is aware she will need to get a C-Scope per prov. d/c orders. Patient belongings were gathered, IV removed. Escorted to private vehicle, pt wants to walk downstairs. Left in Stable conditon, VSS.
--- NOTE | 2023-08-09 13:35 | PC.NURSE ---
Addendum entered by Rosetta Denis R.N. 08/09/23 13:37: Pt's home meds returned from pharmacy and given to patient at 1130 Original Note: Pt A&Ox4, VSS, pain rated a 4 in abdomen. Pt discharge information given by NENA Oviedo and IV catheter removed by HE Bermudez. Patient escorted downstairs by Aidan and discharged home with ride from daughter.
== END 2023-08-09 13:25 | disposition home or self-care (01) | DRG 720 ==
LOC: ED 15:34 → AC 18:20
PROVIDERS: Admitting Provider Hospitalist; Emergency Provider Emergency Medicine; Family Provider Physician Assistant; PCP Physician Assistant; Referring Provider Emergency Medicine; Visit Provider Hospitalist
DX: A41.9 Sepsis, unspecified organism (principal); K57.32 Diverticulitis of large intestine without perforation or abscess without bleeding; F31.9 Bipolar disorder, unspecified; F43.10 Post-traumatic stress disorder, unspecified; F90.9 Attention-deficit hyperactivity disorder, unspecified type; K83.8 Other specified diseases of biliary tract; F17.290 Nicotine dependence, other tobacco product, uncomplicated
CPT/HCPCS: 36415; 74177; 76705; 80053; 81003; 81025; 83605; 83690; 84703; 85025; 85027; 96372; 96374; 96375; 99284; 99285; G0378; J1170; J2270; J2405; J2543

== ENCOUNTER → 2023-11-24 19:27 | Outpatient (CLI) | payer OTHER, SELFPAY ==
--- NOTE | 2023-11-24 19:32 | DI.MRI.S_ITS ---
PROCEDURE: MR LUMBAR SPINE WO CON INDICATIONS: Radiculopathy, lumbosacral region TECHNIQUE: Noncontrast sagittal T1 spin echo and T2 fast echo, sagittal STIR, and T2 fast spin echo through the lumbar spine. In cases with scoliosis, additional coronal T2 fast spin echo may be performed. COMPARISON: [facility], MR, L-SPINE WITHOUT CONTRAST, 09/07/2015, 9:15. FINDINGS: Image quality: Excellent. Alignment and Curvature: There is normal bony alignment. Bone Marrow: Marrow is of normal overall signal. No acute vertebral body compression fractures. Spinal Cord: Conus medullaris terminates at the top of L2 level. Visualized cord demonstrates normal signal and size. Paraspinous Soft Tissues: No paravertebral masses. T12-L1: Normal appearance. L1-L2: Normal appearance. L2-L3: Normal appearance. L3-L4: Minimal disc bulge. Early facet hypertrophy. No canal stenosis or foraminal stenosis. L4-L5: Posterior annulus tear plus increased disc bulge. Development mild increased disc height loss. Facet and ligament hypertrophy. Slight worsening of canal stenosis, mild. Mild bilateral foraminal narrowing. L5-S1: Again noted are annulus tear plus disc bulge. Facet hypertrophy. No canal stenosis. Mild bilateral foraminal stenosis. IMPRESSION: 1. Mildly progressive findings. 2. Multilevel underlying lower lumbar facet arthropathy 3. Mildly progressive canal stenosis at L4-L5, mild. 4. No foraminal nerve root impingement. 5. Annulus tears at L4-L5 and L5-S1, as before. Dictated by: Tyler Brothers M.D. on 11/25/2023 at 7:24 Approved by: Tyler Brothers M.D. on 11/25/2023 at 7:28
== END ==
LOC: MRI 19:32
PROVIDERS: Family Provider Physician Assistant; PCP Physician Assistant; Referring Provider Orthopaedic Surgery Orthopaedic Surgery of the Spine; Visit Provider Orthopaedic Surgery Orthopaedic Surgery of the Spine
DX: M47.26 Other spondylosis with radiculopathy, lumbar region (principal); M47.27 Other spondylosis with radiculopathy, lumbosacral region; M51.16 Intervertebral disc disorders with radiculopathy, lumbar region; M51.17 Intervertebral disc disorders with radiculopathy, lumbosacral region; M48.061 Spinal stenosis, lumbar region without neurogenic claudication; M48.07 Spinal stenosis, lumbosacral region
CPT/HCPCS: 72148

== ENCOUNTER 2024-01-06 13:56 | Outpatient (CLI) | payer OTHER, SELFPAY ==
[2024-01-06] VITALS (8 sets, daily range): BP systolic 108–123; BP diastolic 58–72; PULSE 79–88; RESP 10–18; TEMP 36.6; O2SAT 95–100
--- NOTE | 2024-01-06 14:30 | DI.RAD.S_ITS ---
PROCEDURE: PAIN L/S TRANSFORAMINAL INJECT INDICATIONS: Right S1 transforaminal LISSETTE COMPARISON: None. FINDINGS: Fluoroscopic spot filming was performed to verify placement of spinal needle at the right S1 level, as labeled on the films. Appropriate location of the needle tip was confirmed by injection of iodinated contrast. IMPRESSION: Intraprocedural examination demonstrates appropriate needle positioning. Approved by: Preston Martinez M.D. on 01/06/2024 at 21:09
[2024-01-06] MEDS: MIDAZOLAM 2 MG/2 ML VIAL IV (15:03)
[2024-01-06] MEDS: LIDOCAINE 1% (PF) 5 ML INJ (15:05)
[2024-01-06] MEDS: iopamidoL 15 ML VIAL 3 ML INJ (15:05)
[2024-01-06] MEDS: DEXAMETHASONE 10 MG/ML VIAL INJ (15:05)
--- NOTE | 2024-01-06 15:15 | P.PCN_ITS ---
Date/Time/Diagnoses Date of procedure: 01/06/24 Time of procedure: 14:30 Procedure Notes Total Fluoroscopy time (seconds): 17 Total sedation minutes: 8 Procedure in detail & Post-procedure care: Right S1 Transforaminal Epidural Steroid Injection Indications: Teresa is presenting for treatment of lumbosacral radiculopathy with low back and leg pain. Preoperative diagnosis: Bilateral lumbosacral radiculopathy Postoperative diagnosis: Same Focused Examination: Ax3 Mood and affect are normal Vital Signs: VSS ASA: 2 Consent: Following review of allergies and potential side effects/complications, including, but not necessarily limited to, infection, allergic reaction, local tissue breakdown, stroke, temporary or permanent nerve injury, paralysis, and possible , the patient indicated that they understood and agreed to proceed.? An informed consent document was signed by the patient, witnessed by a nurse and placed in the patient's chart.? Additionally, other treatment options including medications and physical therapy were reviewed with the patient. All questions were answered. Site was then marked. Anesthesia: After review of previous anesthetic history and IV conscious sedation, the patient was deemed safe to proceed with today's procedure with IV conscious sedation. IV sedation was accomplished with midazolam 2 mg administered by the RN after order by Dr. Disla. Sedation was titrated to patient comfort during the course of the procedure. Patient remained responsive to all verbal commands. Position: Prone Monitoring: NIBP, Pulse oximetry, 3 lead EKG Needle used: 22G, 3.5 inch spinal needle Contrast: Isovue 300M Injectate: 10 mg Dexamethasone mixed with 1% lidocaine 1 ml Technique: The skin was prepped with chloraprep and draped in a sterile fashion. Time out was performed as per protocol. Oxygen applied via NC. Skin and sub cutaneous structures of the needle entry site were infiltrated with 3mL of lidocaine 1%. Under fluoroscopic guidance, using an ipsilateral oblique view,?a 22 gauge 3.5 inch needle was advanced to the superolateral border of the right S1 foramen.? The needle was advanced to the superolateral aspect of the neural foramen under lateral view.?AP views were rechecked. No paresthesias noted by the patient during needle placement. In AP view and utilizing real-time digital subtraction fluoroscopy, 2 ml contrast was slowly injected. Epidural spread was observed without evidence for intravascular nor intrathecal uptake. The above injectate was then administered, and the needle was subsequently withdrawn. Band-Aids applied to injection sites. EBL: less than 1 ml Complications: None Post Procedure: Patient was taken to the recovery and monitored. The patient was provided a Pain Log to continue to record the patient's response to the target- specific procedure prior to the patient's follow-up visit with the referring physician. Patient was stable upon discharge. Detailed post procedure instructions were provided. Patient was asked to call in the event of worsening pain, fever, weakness, numbness or bladder or bowel incontinence.
== END 2024-01-06 15:35 | disposition home or self-care (01) ==
LOC: RAD 13:56
PROVIDERS: Family Provider Physician Assistant; PCP Physician Assistant; Referring Provider Anesthesiology; Visit Provider Anesthesiology
DX: M54.17 Radiculopathy, lumbosacral region (principal)
CPT/HCPCS: 64483; 99152; J1100; J2250

== ENCOUNTER 2024-01-13 22:01 | Emergency (ER) | payer OTHER, SELFPAY ==
[2024-01-13 22:07] VITALS: BP 124/76; PULSE 98; RESP 18; TEMP 36.8; O2SAT 100; BMI 25.1
--- NOTE | 2024-01-13 22:14 | DI.CT.S_ITS ---
PROCEDURE: CT LUMBAR SPINE WO CON INDICATIONS: previous traumatic spinal injury with increasing pain TECHNIQUE: Noncontrast 3 mm thick sections acquired from the T12 level to the sacrum. Sagittal and coronal reformats were constructed. For radiation dose reduction, the following was used: automated exposure control. COMPARISON: [facility], MR, MR LUMBAR SPINE WO CON, 11/24/2023, 19:35. [facility], CT, CT LUMBAR SPINE WO CON, 08/19/2022, 9:13. FINDINGS: Image quality: Diagnostic Bones: There is normal bony alignment. No acute vertebral body compression fractures. No suspicious lytic or blastic bony lesions. No pars defects. No significant change in mild multilevel spondylosis of the lumbar spine. Findings are more pronounced in the lower lumbar spine. No high-grade stenosis identified in the spinal canal or bilateral neural foramen. Soft tissues: No retroperitoneal masses or hematomas. Visualized aorta is normal in caliber. Tiny punctate bilateral nonobstructing renal stones incidentally visualized. Appendix is normal. IMPRESSION: Lumbar spine without acute fracture or traumatic malalignment. No significant change in appearance of lower lumbar spondylosis. Incidental note of tiny punctate bilateral nonobstructing renal stones. Normal appendix. Dictated by: Jeffrey Pineda M.D. on 01/13/2024 at 23:48 Approved by: Jeffrey Pineda M.D. on 01/13/2024 at 23:51
[2024-01-13 22:39] VITALS: PULSE 90; O2SAT 100
--- NOTE | 2024-01-13 22:59 | ED_ITS ---
HPI - Back Pain/Injury General Chief Complaint: Back Pain/Injury Stated Complaint: back pain Time Seen by Provider: 01/13/24 22:59 Source: patient and EMS History of Present Illness HPI Narrative: 43-year-old female with chronic low back pain, status post right epidural steroid injection on Thursday, awaiting follow up appointment with chronic low back pain provider this Thursday. Who was walking around [facility] today, felt increased right-sided back pain. No lifting of groceries or items, no fall or injury or new activities. No prolonged car drives. She has no incontinence of urine or stool. She has pain to her right side and her left side, mostly on her affected right side. She has no numbness or weakness to the right leg. Related Data Home Medications Medication Instructions Recorded Confirmed dextroamphetamine-amphetamine ER 50 mg PO QAM 08/06/23 08/06/23 25 mg 24hr capsule,extend release eszopiclone 2 mg tablet 2 mg PO ONCE PM PRN insomnia 08/06/23 08/06/23 lamotrigine 100 mg tablet 100 mg PO DAILY 08/06/23 08/06/23 clobetasol 0.05 % topical cream 1 applic topical BID 09/22/23 09/22/23 Previous Rx's Medication Instructions Recorded meloxicam 15 mg tablet 15 mg PO DAILY #30 tabs 09/22/23 methylprednisolone 4 mg tablets in See Rx Instructions PO PER PKG DIR 09/22/23 a dose pack (Medrol (Leno)) radiculopathy #21 ea gabapentin 300 mg capsule 300 mg PO .COMPLEX #90 caps 10/30/23 Allergies Allergy/AdvReac Type Severity Reaction Status Date / Time amoxicillin Allergy Intermediate ITCHY RASH Verified 09/22/23 14:32 kiwi [KIWI] Allergy Intermediate mouth Verified 09/22/23 14:32 hurt/swelling ketorolac Allergy Verified 09/22/23 14:32 citalopram AdvReac Severe PSYCHOSIS Verified 09/22/23 14:32 fluoxetine AdvReac Severe PSYCHOSIS Verified 09/22/23 14:32 ciprofloxacin [From Cipro] AdvReac ITCHING Verified 09/22/23 14:33 metronidazole AdvReac ITCHING Verified 09/22/23 14:33 Pain contract Allergy Unknown Uncoded 09/22/23 14:32 Review of Systems Review of Systems Narrative: per HPI Patient History Medical History (Updated 01/13/24 @ 23:56 by Abdi Lawson MD) Low back pain Lumbar radiculopathy PID (acute pelvic inflammatory disease) Ovarian cyst Lichen sclerosus Herpes HPV (human papilloma virus) anogenital infection Hemorrhoids Diverticulosis Compression atelectasis Colon polyp Cholelithiasis Asthma Anxiety Uncomplicated opioid dependence (01/23/16) Annular tear of lumbar disc (09/12/15) Sprain of right wrist, subsequent encounter (10/08/15) Chronic narcotic use (10/08/15) Chronic low back pain without sciatica (10/08/15) Diverticulosis of intestine (09/05/13) Irritable bowel syndrome (09/05/13) Tobacco use disorder Bipolar affective disorder, current episode depressed Abdominal pain Kidney stone Sciatica PTSD (post-traumatic stress disorder) Left conjunctivitis Parenting stress Marital conflict involving estrangement Affective disorder Diverticulitis Right wrist sprain Acute exacerbation of chronic low back pain Peripheral neuropathy Arthralgia Bilateral carpal tunnel syndrome Surgical History Status post tubal ligation Family History Mother Osteoarthritis of cervical spine, unspecified spinal osteoarthritis complication status Social History household members: family Smoking Status: Former smoker alcohol intake: current Smoking Status: Former smoker tobacco type: vaping alcohol intake frequency: 0-2 drinks per day Substance Use Type: marijuana Exam Narrative Exam Narrative: GENERAL: Well-developed patient, in moderate distress due to right lower back pain. HEAD: Atraumatic. Normocephalic. EYES: Pupils equal round and reactive. Extraocular motions intact. No scleral icterus. No injection or drainage. ENT: Nose without bleeding, purulent drainage. Throat without erythema, tonsillar hypertrophy or exudate. Airway patent. NECK: Trachea midline. Non tender CARDIOVASCULAR: Regular rate and rhythm without murmurs, gallops, or rubs. RESPIRATORY: Clear to auscultation. Breath sounds equal bilaterally. No wheezes, rales, or rhonchi. GASTROINTESTINAL: Abdomen soft, non-tender, nondistended. EXTREMITIES: No edema or joint tenderness. BACK: Nontender without deformity or crepitance. No flank tenderness. Tattoos noted. No obvious erythema or swelling or crepitance or fluctuance to area of reported recent spinal steroid injections. NEURO: AOx3. Straight leg raise right leg a proximally 30?, with low back pain symptoms, no pain to thigh or leg. Straight leg raise left side proximally 45?, with low back pain symptoms, no pain to thigh or leg. SKIN: No rash or erythema of visible areas Initial Vital Signs Initial Vital Signs: Vital Signs Temperature 98.3 F 01/13/24 22:07 Pulse Rate 98 H 01/13/24 22:07 Respiratory Rate 18 01/13/24 22:07 Blood Pressure 124/76 01/13/24 22:07 Pulse Oximetry 100 01/13/24 22:07 Oxygen Delivery Method Room Air 01/13/24 22:07 Course Orders Ordered: ED Orders 01/13/24 22:14 CT lumbar spine wo con Stat Discontinued Medications Acetaminophen (Acetaminophen 325 Mg Tablet) 650 mg PO NOW ONE Stop: 01/13/24 23:00 Last Admin: 01/13/24 23:06 Dose: 650 mg Documented By: Diazepam (Diazepam 10 Mg/2 Ml Syringe) 5 mg IV NOW ONE Stop: 01/13/24 23:48 Last Admin: 01/13/24 23:54 Dose: 5 mg Documented By: Hydromorphone HCl (Hydromorphone 1 Mg Inj) 1 mg IV NOW ONE Stop: 01/13/24 23:47 Last Admin: 01/13/24 23:54 Dose: 1 mg Documented By: Methocarbamol (Methocarbamol 500 Mg Tablet) 500 mg PO NOW ONE Stop: 01/13/24 23:01 Last Admin: 01/13/24 23:06 Dose: 500 mg Documented By: Vital Signs Vital signs: Vital Signs - 8 hr 01/13/24 22:07 01/13/24 22:39 01/13/24 23:00 Temperature 98.3 F Pulse Rate 98 H 90 84 Respiratory Rate 18 Blood Pressure 124/76 Pulse Oximetry 100 100 100 Oxygen Delivery Method Room Air 01/13/24 23:30 01/14/24 00:00 01/14/24 00:47 Temperature Pulse Rate 90 89 77 Respiratory Rate 18 Blood Pressure Pulse Oximetry 100 100 100 Oxygen Delivery Method 01/14/24 00:49 01/14/24 00:49 01/14/24 01:00 Temperature Pulse Rate 77 87 Respiratory Rate Blood Pressure 128/81 Pulse Oximetry 100 100 Oxygen Delivery Method 01/14/24 01:02 01/14/24 01:02 01/14/24 01:30 Temperature Pulse Rate 83 86 Respiratory Rate Blood Pressure 124/76 Pulse Oximetry 100 100 Oxygen Delivery Method 01/14/24 02:00 Temperature Pulse Rate 86 Respiratory Rate Blood Pressure Pulse Oximetry 100 Oxygen Delivery Method MDM - Back Pain/Injury MDM Narrative Medical decision making narrative: Exacerbation of chronic low back pain right sciatica symptoms, recent epidural steroid injection few days ago, site does not look obviously infected. No fever. No incontinence. IV Dilaudid, IV Valium. CT lumbar spine ordered. CT lumbar spine showed no significant abnormality, no obvious fluid collection or abscess, no significant disc disease or spinal narrowing or facet changes. Symptoms improved, ambulatory, home with family, advised to follow up with her chronic back pain specialist this Thursday as planned. Return precautions discussed Discharge Plan Departure Patient Disposition: Home Clinical Impression: Acute exacerbation of chronic low back pain, Right sided sciatica Instructions: DI for Back Pain With Sciatica, DI for Back Strain or Sprain Activity Restrictions/Additional Instructions: Exacerbation of chronic back pain, recent epidural steroid injection reported, follow up appointment later this week. No interval fall or injury. No fevers or chills. The injection site looked okay does not seem to be obviously infected. IV pain medication and muscle relaxant given. CT lumbar spine today showed no significant abnormalities, looks similar to prior comparison studies per radiologist's report. Continue taking your tizanidine and chronic pain med regimen. Follow up with your chronic pain specialist this week as planned. Be careful not to lift or fall. Return earlier to this/nearest emergency department for any change worsening symptoms or any concerns prior Prescriptions: No Action gabapentin 300 mg capsule 300 mg PO .COMPLEX Qty: 90 2RF Rx Instructions: 1 PO QHS x3 days if tolerated, 1 PO BID x3 days if tolerated, 1 PO TID lamotrigine 100 mg tablet 100 mg PO DAILY dextroamphetamine-amphetamine 25 mg capsule,extended release 24hr 50 mg PO QAM eszopiclone 2 mg tablet 2 mg PO ONCE PM PRN (Reason: insomnia) clobetasol 0.05 % cream 1 applic topical BID methylprednisolone [Medrol (Leno)] 4 mg tablets,dose pack See Rx Instructions PO PER PKG DIR Qty: 21 0RF Rx Instructions: PO PER PKG DIR meloxicam 15 mg tablet 15 mg PO DAILY Qty: 30 2RF Referrals: Ngozi Diane PA-C [Primary Care Provider] - Stand Alone Forms: Patient Portal/API
[2024-01-13 23:00] VITALS: PULSE 84; O2SAT 100
[2024-01-13] MEDS: ACETAMINOPHEN 325 MG TABLET 650 MG PO (23:06)
[2024-01-13] MEDS: methocarbamoL 500 MG TABLET PO (23:06)
[2024-01-13 23:30] VITALS: PULSE 90; O2SAT 100
[2024-01-13] MEDS: HYDROMORPHONE 1 MG INJ IV (23:54)
[2024-01-13] MEDS: diazePAM 10 MG/2 ML SYRINGE 5 MG IV (23:54)
[2024-01-14] VITALS (7 sets, daily range): BP systolic 124–128; BP diastolic 76–81; PULSE 77–89; RESP 18; O2SAT 100
--- NOTE | 2024-01-14 00:34 | PC.NURSE ---
Pt up to BR in WC. Pt tolerated well.
== END 2024-01-14 02:41 | disposition home or self-care (01) ==
PROVIDERS: Emergency Provider Emergency Medicine; Family Provider Physician Assistant; PCP Physician Assistant
DX: M54.50 Low back pain, unspecified (principal); M54.31 Sciatica, right side
CPT/HCPCS: 72131; 96374; 96375; 99284; J1170; J3360

== ENCOUNTER 2024-04-05 16:59 | Emergency (ER) | payer OTHER, MEDICAID, SELFPAY ==
[2024-04-05 17:07] VITALS: BP 120/78; PULSE 80; RESP 18; TEMP 36.8; O2SAT 100; BMI 26.4
[2024-04-05 17:58] VITALS: BP 124/70; PULSE 80; RESP 18; TEMP 37; O2SAT 99
--- NOTE | 2024-04-05 19:09 | ED_ITS ---
<Statement entered by Valentin Turner DO - 04/12/24 07:21> Dr. Turner: I was immediately available in the department for consultation. Documentation has been reviewed. I agree with assessment and plan. HPI - Dental/Oral General Chief complaint: Dental/Oral Stated complaint: sent by [facility] tooth px Time Seen by Provider: 04/05/24 17:30 Source: patient Mode of arrival: Ambulatory History of Present Illness HPI Narrative: 43-year-old female presents to the ED with 3 weeks of overall malaise, dental pain. Patient states that she can feel a chip of a lower left molar. Patient suspects that she has a dental abscess. No fever, chills, chest pain, shortness of breath. Related Data Home Medications Medication Instructions Recorded Confirmed lamotrigine 100 mg tablet 100 mg PO DAILY 08/06/23 04/05/24 clobetasol 0.05 % topical cream 1 applic topical BID 09/22/23 04/05/24 eszopiclone 3 mg tablet 3 mg PO ONCE PM PRN 02/08/24 04/05/24 pregabalin 75 mg capsule 75 mg PO BID 02/08/24 04/05/24 dextroamphetamine-amphetamine 20 1 tab PO BID 04/05/24 04/05/24 mg tablet diclofenac sodium 75 mg 75 mg PO BID 04/05/24 04/05/24 tablet,delayed release lisdexamfetamine 30 mg capsule 30 mg PO QAM 04/05/24 04/05/24 (Vyvanse) Previous Rx's Medication Instructions Recorded clindamycin HCl 150 mg capsule 450 mg (3 x 150 mg) PO Q8H 10 days 04/05/24 #90 caps Allergies Allergy/AdvReac Type Severity Reaction Status Date / Time amoxicillin Allergy Intermediate ITCHY RASH Verified 04/07/24 19:30 kiwi [KIWI] Allergy Intermediate mouth Verified 04/07/24 19:30 hurt/swelling ketorolac Allergy Verified 04/07/24 19:30 citalopram AdvReac Severe PSYCHOSIS Verified 04/07/24 19:30 fluoxetine AdvReac Severe PSYCHOSIS Verified 04/07/24 19:30 ciprofloxacin [From Cipro] AdvReac ITCHING Verified 04/07/24 19:30 metronidazole AdvReac ITCHING Verified 04/07/24 19:30 Pain contract Allergy Unknown Uncoded 04/07/24 19:30 Review of Systems Constitutional Constitutional: Denies chills, Denies fatigue, Denies fever(s), Denies frequent falls, Denies lethargy, Reports malaise and Denies weakness Eyes Eyes: Denies change in vision, Denies eye discharge, Denies irritation and Denies loss of vision ENT Ears, Nose, Mouth, and Throat: Denies change in voice, Reports dental pain, Denies dizziness, Denies neck pain, Denies sore throat and Denies throat swelling Cardiovascular Cardiovascular: Denies chest pain, Denies irregular heart rhythm, Denies lightheadedness, Denies palpitations, Denies dyspnea, Denies dyspnea on exertion and Denies orthopnea Respiratory Respiratory: Denies cough, Denies dyspnea, Denies dyspnea on exertion and Denies wheezing Gastrointestinal Gastrointestinal: Denies abdominal pain, Denies change in bowel habits, Denies diarrhea, Denies nausea and Denies vomiting Musculoskeletal Musculoskeletal: Denies neck pain and Denies numbness Integumentary/Breasts Skin/Breast: Denies pruritus, Denies erythema, Denies rash and Denies wounds Neurologic Neurologic: Denies behavioral changes, Denies confusion, Denies dizziness, Denies frequent falls, Denies loss of vision, Denies numbness and Denies weakness Psychiatric Psychiatric: Denies anxiety, Denies behavioral changes, Denies confusion, Denies depression, Denies homicidal ideation and Denies suicidal ideation Endocrine Endocrine: Denies fatigue, Denies flushing and Denies palpitations Hematologic/Lymphatic Hematologic/Lymphatic: Denies easy bruising Allergic/Immunologic Allergic/Immunologic: Denies urticaria, Denies throat swelling and Denies wheezing Patient History Medical History Low back pain Lumbar radiculopathy PID (acute pelvic inflammatory disease) Ovarian cyst Lichen sclerosus Herpes HPV (human papilloma virus) anogenital infection Hemorrhoids Diverticulosis Compression atelectasis Colon polyp Cholelithiasis Asthma Anxiety Uncomplicated opioid dependence (01/23/16) Annular tear of lumbar disc (09/12/15) Sprain of right wrist, subsequent encounter (10/08/15) Chronic narcotic use (10/08/15) Chronic low back pain without sciatica (10/08/15) Diverticulosis of intestine (09/05/13) Irritable bowel syndrome (09/05/13) Tobacco use disorder Bipolar affective disorder, current episode depressed Abdominal pain Kidney stone Sciatica PTSD (post-traumatic stress disorder) Left conjunctivitis Parenting stress Marital conflict involving estrangement Affective disorder Diverticulitis Right wrist sprain Acute exacerbation of chronic low back pain Peripheral neuropathy Arthralgia Bilateral carpal tunnel syndrome Surgical History Status post tubal ligation Family History Mother Osteoarthritis of cervical spine, unspecified spinal osteoarthritis complication status Social History household members: family Smoking Status: Former smoker alcohol intake: current Smoking Status: Former smoker tobacco type: vaping alcohol intake frequency: 0-2 drinks per day Substance Use Type: marijuana Exam Narrative Exam Narrative: Const General:?cooperative, healthy appearing and comfortable HENMT Head:?normal to inspection Ears:?hearing grossly normal bilaterally Nose:?external nose normal Face and sinus:?normal facial exam and sinuses nontender Mouth:?oral mucosae normal; there is a left lower molar that appears to have chipped versus caries Throat:?posterior oropharynx normal Eyes General:?appearance normal, both eyes and all related structures Neck Neck:?normal visual inspection and no lymphadenopathy noted Resp Effort & Inspection:?normal respiratory effort Auscultation:?clear to auscultation bilaterally Cardio Rate:?regular rate Rhythm:?regular rhythm Neuro General:?patient alert, patient awake and patient oriented x3 Initial Vital Signs Initial Vital Signs: Vital Signs Temperature 98.3 F 04/05/24 17:07 Pulse Rate 80 04/05/24 17:07 Respiratory Rate 18 04/05/24 17:07 Blood Pressure 120/78 04/05/24 17:07 Pulse Oximetry 100 04/05/24 17:07 Oxygen Delivery Method Room Air 04/05/24 17:07 Course Vital Signs Vital signs: Vital Signs - 8 hr 04/05/24 17:07 04/05/24 17:58 Temperature 98.3 F 98.6 F Pulse Rate 80 80 Respiratory Rate 18 18 Blood Pressure 120/78 124/70 Pulse Oximetry 100 99 Oxygen Delivery Method Room Air Room Air MDM - Dental/Oral MDM Narrative Medical decision making narrative: 43-year-old female presents to the ED with 3 weeks of overall malaise, dental pain. Patient's symptoms most consistent with a dental infection/abscess. Prescribed antibiotics. Recommend follow-up with dental. ED return precautions discussed with patient. Patient verbalized understanding. Medical records reviewed: Yes. Discharge Plan Departure Patient Disposition: Home Clinical Impression: Pain, dental Instructions: DI for Dental Pain Activity Restrictions/Additional Instructions: You were evaluated in the ED today for a possible dental infection. You are being prescribed antibiotics for it. Please follow-up with your dentist and PCP as soon as possible. Return to the ED if you have worsening symptoms, persistent vomiting, fever, chills. Prescriptions: New clindamycin HCl 150 mg capsule 450 mg PO Q8H 10 Days Qty: 90 0RF No Action lisdexamfetamine [Vyvanse] 30 mg capsule 30 mg PO QAM dextroamphetamine-amphetamine 20 mg tablet 1 tab PO BID diclofenac sodium 75 mg tablet,delayed release (DR/EC) 75 mg PO BID lamotrigine 100 mg tablet 100 mg PO DAILY clobetasol 0.05 % cream 1 applic topical BID eszopiclone 3 mg tablet 3 mg PO ONCE PM PRN pregabalin 75 mg capsule 75 mg PO BID Referrals: Ngozi Diane PA-C [Primary Care Provider] - Stand Alone Forms: Patient Portal/API
== END 2024-04-05 17:59 | disposition home or self-care (01) ==
PROVIDERS: Emergency Provider Student in an Organized Health Care Education/Training Program; Family Provider Physician Assistant; PCP Physician Assistant
DX: K08.89 Other specified disorders of teeth and supporting structures (principal)
CPT/HCPCS: 99281

== ENCOUNTER 2024-04-07 19:18 | Emergency (ER) | payer OTHER, MEDICAID, SELFPAY ==
[2024-04-07 19:26] VITALS: BP 136/92; PULSE 90; RESP 15; TEMP 36.9; O2SAT 100; BMI 26.4
[2024-04-07 23:08] VITALS: BP 147/66; PULSE 83; RESP 18; O2SAT 99
--- NOTE | 2024-04-07 23:46 | ED.RECABL ---
HPI - Recheck/Abnormal Lab/Rx General Chief Complaint: Recheck/Abnormal Lab/Rx Stated Complaint: tooth infection, here the other day, getting worse Time Seen by Provider: 04/07/24 23:45 Source: patient Mode of arrival: Family Vehicle Limitations: no limitations History of Present Illness HPI narrative: 43-year-old female history of anxiety, chronic pain presents with complaint of possible dental infection the patient states was getting worse. Patient was seen here 2 days prior was started on clindamycin seated was actually improving with each dose but then earlier today felt a little bit worse again states she is improved again since then. She states she is felt chilled, she has had some headaches, she states she was not really having much pain in the dental area anymore. She states there is a full in that area. She has not had any swelling, no pain to the ear. She has had a little bit of mild congestion. Has had some mild nausea. No shortness of breath. Some mild diarrhea. No new rash or skin changes. Patient states she was concerned that she might be getting accepted. She is on several medications including, lamotrigine, pregabalin, and tizanidine PRN. Patient does use smokeless tobacco, denies regular alcohol, denies any recreational drugs besides marijuana. Related Data Home Medications Medication Instructions Recorded Confirmed lamotrigine 100 mg tablet 100 mg PO DAILY 08/06/23 04/05/24 clobetasol 0.05 % topical cream 1 applic topical BID 09/22/23 04/05/24 eszopiclone 3 mg tablet 3 mg PO ONCE PM PRN 02/08/24 04/05/24 pregabalin 75 mg capsule 75 mg PO BID 02/08/24 04/05/24 dextroamphetamine-amphetamine 20 1 tab PO BID 04/05/24 04/05/24 mg tablet diclofenac sodium 75 mg 75 mg PO BID 04/05/24 04/05/24 tablet,delayed release lisdexamfetamine 30 mg capsule 30 mg PO QAM 04/05/24 04/05/24 (Vyvanse) Previous Rx's Medication Instructions Recorded clindamycin HCl 150 mg capsule 450 mg (3 x 150 mg) PO Q8H 10 days 04/05/24 #90 caps Allergies Allergy/AdvReac Type Severity Reaction Status Date / Time amoxicillin Allergy Intermediate ITCHY RASH Verified 04/07/24 19:30 kiwi [KIWI] Allergy Intermediate mouth Verified 04/07/24 19:30 hurt/swelling ketorolac Allergy Verified 04/07/24 19:30 citalopram AdvReac Severe PSYCHOSIS Verified 04/07/24 19:30 fluoxetine AdvReac Severe PSYCHOSIS Verified 04/07/24 19:30 ciprofloxacin [From Cipro] AdvReac ITCHING Verified 04/07/24 19:30 metronidazole AdvReac ITCHING Verified 04/07/24 19:30 Pain contract Allergy Unknown Uncoded 04/07/24 19:30 Review of Systems Review of Systems ROS Unobtainable: All systems reviewed & are unremarkable except as noted in HPI and below Patient History Medical History Low back pain Lumbar radiculopathy PID (acute pelvic inflammatory disease) Ovarian cyst Lichen sclerosus Herpes HPV (human papilloma virus) anogenital infection Hemorrhoids Diverticulosis Compression atelectasis Colon polyp Cholelithiasis Asthma Anxiety Uncomplicated opioid dependence (01/23/16) Annular tear of lumbar disc (09/12/15) Sprain of right wrist, subsequent encounter (10/08/15) Chronic narcotic use (10/08/15) Chronic low back pain without sciatica (10/08/15) Diverticulosis of intestine (09/05/13) Irritable bowel syndrome (09/05/13) Tobacco use disorder Bipolar affective disorder, current episode depressed Abdominal pain Kidney stone Sciatica PTSD (post-traumatic stress disorder) Left conjunctivitis Parenting stress Marital conflict involving estrangement Affective disorder Diverticulitis Right wrist sprain Acute exacerbation of chronic low back pain Peripheral neuropathy Arthralgia Bilateral carpal tunnel syndrome Surgical History Status post tubal ligation Family History Mother Osteoarthritis of cervical spine, unspecified spinal osteoarthritis complication status Social History household members: family Smoking Status: Former smoker alcohol intake: current Smoking Status: Former smoker tobacco type: cigarettes and vaping alcohol intake frequency: 0-2 drinks per day Substance Use Type: marijuana Exam Narrative Exam Narrative: GEN: well nourished, well appearing female, alert and oriented x 3, patient appears to be in mild distress. HEENT: Atraumatic, pupils are equal round reactive to light, extraocular movements are intact, nares are clear, TMs are clear with no fluid, there is no conjunctival pallor. Throat is clear without any exudates, erythema, tonsillar enlargement or uvular deviation, patient does have small in the posterior molar on the left. No swelling or no erythema in the surrounding area. Normal speech. HEART: Regular rate and rhythm without murmur, clicks, rubs. LUNGS:Lungs clear to auscultation, no wheezes, rales, crackles, chest moves symmetrically ABD:bowel sounds normal, soft, non-tender, no guarding, rebound, rigidity, no masses noted, no hepatosplenomegaly :No CVA tenderness MSCL: Non-tender, no muscle atrophy, muscles strength 5/5 upper and lower extremities, full range of motion, normal gait NEURO:CN 2-12 intact, sensation normal. SKIN: No rash, erythema or other skin changes noted. Initial Vital Signs Initial Vital Signs: Vital Signs Temperature 98.5 F 04/07/24 19:26 Pulse Rate 90 04/07/24 19:26 Respiratory Rate 15 04/07/24 19:26 Blood Pressure 136/92 H 04/07/24 19:26 Pulse Oximetry 100 04/07/24 19:26 Oxygen Delivery Method Room Air 04/07/24 19:26 Course Vital Signs Vital signs: Vital Signs - 8 hr 04/07/24 23:08 04/08/24 00:15 Temperature 97.4 F L Pulse Rate 83 74 Respiratory Rate 18 16 Blood Pressure 147/66 H 124/65 Pulse Oximetry 99 98 Oxygen Delivery Method Room Air MDM - Recheck/Abnormal Lab/Rx MDM Narrative Medical decision making narrative: 43-year-old female who states she has actually been improving since she started the clindamycin, vitals here overall appropriate. Patient was concerned she might be getting septic we reviewed that her vital signs appear well, did discuss grabbing a respiratory panel which she ultimately deferred. We did discuss blood work but patient elects to hold off. I think this is appropriate patient states she has overall been improving in his well-appearing here in the department. Plan for patient continue antibiotics and return if worsening or concerning changes. Discharge Plan Departure Patient Disposition: Home Clinical Impression: Dental caries Activity Restrictions/Additional Instructions: Please follow up as needed. I hope you continue to feel improved. Please continue the antibiotic prescribed until completed. Return for fevers, if you are having worsening symptoms or other new or concerning changes. Prescriptions: No Action lisdexamfetamine [Vyvanse] 30 mg capsule 30 mg PO QAM dextroamphetamine-amphetamine 20 mg tablet 1 tab PO BID diclofenac sodium 75 mg tablet,delayed release (DR/EC) 75 mg PO BID clindamycin HCl 150 mg capsule 450 mg PO Q8H 10 Days Qty: 90 0RF lamotrigine 100 mg tablet 100 mg PO DAILY clobetasol 0.05 % cream 1 applic topical BID eszopiclone 3 mg tablet 3 mg PO ONCE PM PRN pregabalin 75 mg capsule 75 mg PO BID Referrals: Ngozi Diane PA-C [Primary Care Provider] - Stand Alone Forms: Patient Portal/API
[2024-04-08 00:15] VITALS: BP 124/65; PULSE 74; RESP 16; TEMP 36.3; O2SAT 98
== END 2024-04-08 00:21 | disposition home or self-care (01) ==
PROVIDERS: Emergency Provider Emergency Medicine; Family Provider Physician Assistant; PCP Physician Assistant
DX: K02.9 Dental caries, unspecified (principal)
CPT/HCPCS: 99281

== ENCOUNTER 2024-04-12 18:15 | Emergency (ER) | payer OTHER, MEDICAID, SELFPAY ==
[2024-04-12 18:21] VITALS: BP 128/82; PULSE 93; RESP 18; TEMP 37; O2SAT 97; BMI 25.7
--- NOTE | 2024-04-12 18:33 | DI.RAD.S_ITS ---
PROCEDURE: XR CHEST 1V INDICATIONS: SOB eval for PNA TECHNIQUE: One view of the chest was acquired. COMPARISON: [facility], CR, XR CHEST 1V, 04/05/2022, 23:24. [facility], CR, XR CHEST 1V, 03/31/2022, 14:41. FINDINGS: Surgical changes and devices: None. Lungs and pleura: Lungs are clear. No pleural effusions or pneumothorax. Mediastinum: Mediastinal contours appear normal. Heart size is normal. Bones and chest wall: No suspicious bony lesions. Overlying soft tissues appear unremarkable. IMPRESSION: No acute cardiopulmonary abnormality is seen. Dictated by: Gerardo Ruth M.D. on 04/12/2024 at 19:13 Approved by: Gerardo Ruth M.D. on 04/12/2024 at 19:13
--- NOTE | 2024-04-12 18:33 | ED_ITS ---
HPI - General Adult General Chief complaint: Dental/Oral Stated complaint: toothache Time Seen by Provider: 04/12/24 18:15 Source: patient and EMS Mode of arrival: Ambulatory Limitations: no limitations History of Present Illness HPI narrative: Patient is a 43-year-old female who is here for evaluation of generally feeling not well, shortness of breath, fevers, dental pain. She has been on clindamycin for the past 7 days. Has followed up with her dentist. Has had x-rays. Was told that she does have a dental infection. She states that the dentist told her that she needed to finish taking the antibiotics before any definitive treatment can be made. She was sent from the dentist office for concerns of sepsis. Patient states she feels like she was an infection throughout her body. Related Data Home Medications Medication Instructions Recorded Confirmed lamotrigine 100 mg tablet 100 mg PO DAILY 08/06/23 04/05/24 clobetasol 0.05 % topical cream 1 applic topical BID 09/22/23 04/05/24 eszopiclone 3 mg tablet 3 mg PO ONCE PM PRN 02/08/24 04/05/24 pregabalin 75 mg capsule 75 mg PO BID 02/08/24 04/05/24 dextroamphetamine-amphetamine 20 1 tab PO BID 04/05/24 04/05/24 mg tablet diclofenac sodium 75 mg 75 mg PO BID 04/05/24 04/05/24 tablet,delayed release lisdexamfetamine 30 mg capsule 30 mg PO QAM 04/05/24 04/05/24 (Vyvanse) Previous Rx's Medication Instructions Recorded clindamycin HCl 150 mg capsule 450 mg (3 x 150 mg) PO Q8H 10 days 04/05/24 #90 caps doxycycline hyclate 100 mg tablet 100 mg PO BID 10 days #20 tabs 04/12/24 Allergies Allergy/AdvReac Type Severity Reaction Status Date / Time amoxicillin Allergy Intermediate ITCHY RASH Verified 04/07/24 19:30 kiwi [KIWI] Allergy Intermediate mouth Verified 04/07/24 19:30 hurt/swelling ketorolac Allergy Verified 04/07/24 19:30 citalopram AdvReac Severe PSYCHOSIS Verified 04/07/24 19:30 fluoxetine AdvReac Severe PSYCHOSIS Verified 04/07/24 19:30 ciprofloxacin [From Cipro] AdvReac ITCHING Verified 04/07/24 19:30 metronidazole AdvReac ITCHING Verified 04/07/24 19:30 Pain contract Allergy Unknown Uncoded 04/07/24 19:30 Review of Systems Review of Systems Narrative: See HPI Patient History Medical History Low back pain Lumbar radiculopathy PID (acute pelvic inflammatory disease) Ovarian cyst Lichen sclerosus Herpes HPV (human papilloma virus) anogenital infection Hemorrhoids Diverticulosis Compression atelectasis Colon polyp Cholelithiasis Asthma Anxiety Uncomplicated opioid dependence (01/23/16) Annular tear of lumbar disc (09/12/15) Sprain of right wrist, subsequent encounter (10/08/15) Chronic narcotic use (10/08/15) Chronic low back pain without sciatica (10/08/15) Diverticulosis of intestine (09/05/13) Irritable bowel syndrome (09/05/13) Tobacco use disorder Bipolar affective disorder, current episode depressed Abdominal pain Kidney stone Sciatica PTSD (post-traumatic stress disorder) Left conjunctivitis Parenting stress Marital conflict involving estrangement Affective disorder Diverticulitis Right wrist sprain Acute exacerbation of chronic low back pain Peripheral neuropathy Arthralgia Bilateral carpal tunnel syndrome Surgical History Status post tubal ligation Family History Mother Osteoarthritis of cervical spine, unspecified spinal osteoarthritis complication status Social History household members: family Smoking Status: Former smoker alcohol intake: current Smoking Status: Former smoker tobacco type: cigarettes and vaping alcohol intake frequency: other Substance Use Type: does not use Exam Initial Vital Signs Initial Vital Signs: Vital Signs Temperature 98.6 F 04/12/24 18:21 Pulse Rate 93 H 04/12/24 18:21 Respiratory Rate 18 04/12/24 18:21 Blood Pressure 128/82 04/12/24 18:21 Pulse Oximetry 97 04/12/24 18:21 Oxygen Delivery Method Room Air 04/12/24 18:21 HENMT Ears: TM's normal bilaterally Mouth: moist mucous membranes Teeth and gingiva: fair dentition Throat: posterior oropharynx normal Resp Effort & Inspection: normal respiratory effort Auscultation: clear to auscultation bilaterally Cardio Rate: regular rate Rhythm: regular rhythm Skin General: no rashes or lesions noted Psych Other: Agitated Course Orders Ordered: ED Orders 04/12/24 18:33 XR chest 1V Stat 04/12/24 18:50 Covid-19 + FLU A/B + RSV - PCR Stat Vital Signs Vital signs: Vital Signs - 8 hr 04/12/24 18:21 04/12/24 20:06 Temperature 98.6 F Pulse Rate 93 H 86 Respiratory Rate 18 16 Blood Pressure 128/82 148/86 H Pulse Oximetry 97 100 Oxygen Delivery Method Room Air Room Air Medical Decision Making Lab Data Labs: Lab Results 04/12/24 Range/Units 18:50 SARS-CoV-2 (PCR) Negative (Negative) Influenza A (RT-PCR) Flu a negative (NEGATIVE) Influenza B (RT-PCR) Flu b negative (NEGATIVE) RSV (PCR) Negative (Negative) Imaging Data Chest x-ray: Radiologist's Impression: PROCEDURE: XR CHEST 1V INDICATIONS: SOB eval for PNA TECHNIQUE: One view of the chest was acquired. COMPARISON: [facility], , XR CHEST 1V, 04/05/2022, 23:24. [facility], , XR CHEST 1V, 03/31/2022, 14:41. FINDINGS: Surgical changes and devices: None. Lungs and pleura: Lungs are clear. No pleural effusions or pneumothorax. Mediastinum: Mediastinal contours appear normal. Heart size is normal. Bones and chest wall: No suspicious bony lesions. Overlying soft tissues appear unremarkable. IMPRESSION: No acute cardiopulmonary abnormality is seen. [facility] Narrative Medical decision making narrative: No definitive dental abscess seen on exam today. No indication for incision and drainage. Has been on antibiotics for the past 7 days. She is allergic to amoxicillin. Since she feels like her symptoms are worsening we will switch her to doxycycline. She was going to need to follow up with a dentist for definitive treatment. Her chest x-ray is unremarkable. This is ordered because of her reports of shortness of breath. Her COVID flu test negative. This was ordered because of her generalized fatigue and body aches. He was no indication for labs. She was nontoxic appearing. Patient safe for discharge home with follow-up with dentist. Discharge Plan Departure Patient Disposition: Home Clinical Impression: Pain, dental Instructions: DI for Dental Pain Activity Restrictions/Additional Instructions: You are going to need to follow-up with the dentist for definitive treatment of your dental pain/infection. Take the new antibiotics as directed. Keep your scheduled follow-up appointment with your primary doctor tomorrow. Prescriptions: New doxycycline hyclate 100 mg tablet 100 mg PO BID 10 Days Qty: 20 0RF No Action lisdexamfetamine [Vyvanse] 30 mg capsule 30 mg PO QAM dextroamphetamine-amphetamine 20 mg tablet 1 tab PO BID diclofenac sodium 75 mg tablet,delayed release (DR/EC) 75 mg PO BID clindamycin HCl 150 mg capsule 450 mg PO Q8H 10 Days Qty: 90 0RF lamotrigine 100 mg tablet 100 mg PO DAILY clobetasol 0.05 % cream 1 applic topical BID eszopiclone 3 mg tablet 3 mg PO ONCE PM PRN pregabalin 75 mg capsule 75 mg PO BID Referrals: Ngozi Diane PA-C [Primary Care Provider] - Stand Alone Forms: Patient Portal/API
[2024-04-12 19:43] LABS: Influenza A - CEPHEID Flu A NEGATIVE (NEGATIVE); Influenza B - CEPHEID Flu B NEGATIVE (NEGATIVE); Respiratory Syncytial Virus Negative (Negative)
[2024-04-12 19:46] LABS: COVID-19 CEPHEID 4-PLEX PCR Negative (Negative)
[2024-04-12 20:06] VITALS: BP 148/86; PULSE 86; RESP 16; O2SAT 100
== END 2024-04-12 20:06 | disposition home or self-care (01) ==
PROVIDERS: Emergency Provider Emergency Medicine; Family Provider Physician Assistant; PCP Physician Assistant
DX: K08.89 Other specified disorders of teeth and supporting structures (principal); R06.02 Shortness of breath; R50.9 Fever, unspecified; Z11.52 Encounter for screening for COVID-19
CPT/HCPCS: 0241U; 71045; 99281; 99283

== ENCOUNTER → 2024-04-28 12:19 | Outpatient (CLI) | payer OTHER, MEDICAID, SELFPAY ==
[2024-04-28 14:21] LABS: Ur Creatinine Normal (Normal); Ur Specific Gravity Normal (Normal); Urine Amphetamines Positive (Negative); Urine Barbiturates Negative (Negative); Urine Benzodiazepines Negative (Negative); Urine Cocaine Negative (Negative); Urine MDMA Negative (Negative); Urine Methadone Negative (Negative); Urine Methamphetamines Negative (Negative); Urine Opiates Negative (Negative); Urine Oxycodone Negative (Negative); Urine Phencyclidine Negative (Negative); Urine THC Negative (Negative); Urine Tricyclic Antidepressant Negative (Negative); Urine pH Normal (Normal)
== END ==
PROVIDERS: Family Provider Physician Assistant; PCP Physician Assistant; Referring Provider Student in an Organized Health Care Education/Training Program; Visit Provider Student in an Organized Health Care Education/Training Program
DX: F90.2 Attention-deficit hyperactivity disorder, combined type (principal)
CPT/HCPCS: 80305